=== PATIENT | male | born 1960 | race African-American/Black ===

== ENCOUNTER 2017-01-01 11:58 | Inpatient (IN) | payer OTHER ==
[2017-01-01 14:00] VITALS: BMI 21.2
--- NOTE | 2017-01-01 15:09 | HP ---
COWS - Scale Resting Pulse: 1= [place] 81-100 Sweatin= Chills/Flushing Restless Observation: 3= Extraneous Movement Pupil Size: 0= Normal to Room Light Bone or Joint Aches: 4=Acute Joint/Muscle Pain Runny Nose/ Eye Tearin= Runny Nose/Eyes GI Upset > 30mins: 1= Stomach Cramp Tremor Observation: 2= Slight Tremor Visible Yawning Observation: 1= 1-2x During Session Anxiety or Irritability: 2=Irritable/Anxious Goose Flesh Skin: 0=Smooth Skin COWS Score: 17 CIWA Score - CIWA Score Nausea/Vomitin-No Nausea/No Vomiting Muscle Tremors: 4-Moderate,w/Arms Extend Anxiety: 4-Mod. Anxious/Guarded Agitation: 3 Paroxysmal Sweats: 2 Orientation: 0-Oriented Tacttile Disturbances: 3-Moderate Itch/Numb/Burn Auditory Disturbances: 0-None Visual Disturbances: 0-None Headache: 2-Mild CIWA-Ar Total Score: 18 Admission ROS S - HPI Chief Complaint: DETOX TX FOR HEROIN AND ALCOHOL DEPENDENCE Allergies/Adverse Reactions: Allergies Allergy/AdvReac Type Severity Reaction Status Date / Time Penicillins Allergy Severe Swelling Verified 01/01/17 14:21 shellfish derived Allergy Severe Swelling Verified 01/01/17 14:21 History of Present Illness: 56 Y/O AA/MALE WITH A HX OF ALCOHOL, HEROIN AND COCAINE DEPENDENCE SEEKING DETOX TX. Exam Limitations: No Limitations - Ebola screening Have you traveled outside of the country in the last 21 days: No Have you had contact with anyone from an Ebola affected area: No Have you been sick,other than usual withdrawal symptoms: No Do you have a fever: No - Review of Systems Constitutional: Chills, Loss of Appetite, Night Sweats, Changes in sleep, Unintentional Wgt. Loss EENT: reports: Blurred Vision, Tearing, Nose Congestion, Dental Problems ( MISSING) Respiratory: reports: No Symptoms reported Cardiac: reports: Lightheadedness GI: reports: Constipated, Diarrhea, Nausea, Poor Appetite, Poor Fluid Intake, Vomiting : reports: No Symptoms Reported Musculoskeletal: reports: Back Pain, Joint Pain, Muscle Pain Integumentary: reports: No Symptoms Reported Neuro: reports: Headache, Tremors, Unsteady Gait, Dizziness Endocrine: reports: No Symptoms Reported Hematology: reports: No Symptoms Reported Psychiatric: reports: Orientated x3 Other Systems: Reviewed and Negative Patient History - Patient Medical History Hx Anemia: No Hx Asthma: No Hx Chronic Obstructive Pulmonary Disease (COPD): No Hx Cancer: No Hx Cardiac Disorders: No Hx Congestive Heart Failure: No Hx Hypertension: No Hx Hypercholesterolemia: No Hx Pacemaker: No HX Cerebrovascular Accident: No Hx Seizures: No Hx Dementia: No Hx Diabetes: No Hx Gastrointestinal Disorders: No Hx Liver Disease: Yes Hx Genitourinary Disorders: No Hx Sexually Transmitted Disorders: No Hx Renal Disease (ESRD): No Hx Thyroid Disease: No Hx Human Immunodeficiency Virus (HIV): No (NEGATIVE HX) Hx Hepatitis C: Yes (no treatment) Hx Depression: No Hx Suicide Attempt: No Hx Bipolar Disorder: No Hx Schizophrenia: No - Patient Surgical History Past Surgical History: No Hx Neurologic Surgery: No Hx Cataract Extraction: No Hx Cardiac Surgery: No Hx Lung Surgery: No Hx Breast Surgery: No Hx Breast Biopsy: No Hx Abdominal Surgery: No Hx Appendectomy: No Hx Cholecystectomy: No Hx Genitourinary Surgery: No Hx Orthopedic Surgery: No Anesthesia Reaction: No - PPD History Previous Implant?: Yes Documented Results: Negative w/proof Implanted On Prior R Admission?: Yes Date: 01/05/16 Results: 0 mm PPD to be Administered?: Yes - Reproductive History Patient is a Female of Child Bearing Age (11 -55 yrs old): No (MALE) Patient : (N/A) - Smoking Cessation Smoking history: Never smoked Have you smoked in the past 12 months: No Hx Chewing Tobacco Use: No Initiated information on smoking cessation: No - Substance & Tx. History Hx Alcohol Use: Yes (VODKA/BEER) Hx Substance Use: Yes (HEROIN/COCAINE) Substance Use Type: Alcohol, Cocaine, Heroin Hx Substance Use Treatment: Yes (LAST TX AT [facility] DETOX) - Substances Abused Heroin Route: Inhalation Frequency: Daily Amount used: 3 bags Age of first use: 27 Date of Last Use: 12/31/16 Crack Route: Smoking Frequency: Daily Amount used: $40-50 Age of first use: 27 Date of Last Use: 12/31/16 Alcohol-vodka/beer Route: Oral Frequency: Daily Amount used: 2 pts./2-6 pks. Age of first use: 27 Date of Last Use: 12/31/16 Family Disease History - Family Disease History Family Disease History: Heart Disease: Father ([place],ALCOHOL), Other: Father Admission Physical Exam [facility] - Vital Signs Vital Signs: Vital Signs - 24 hr 01/01/17 13:57 Temperature 96.6 F L Pulse Rate 90 Respiratory 20 Rate Blood Pressure 107/60 - Physical General Appearance: Yes: Moderate Distress, Thin, Irritable, Anxious HEENTM: Yes: EOMI, Normocephalic, FRED, Pharynx Normal Respiratory: Yes: Chest Non-Tender, Lungs Clear, Normal Breath Sounds, No Respiratory Distress Neck: Yes: Within Normal Limits, No masses,lesions,Nodules, Supple Breast: Yes: Breast Exam Deferred Cardiology: Yes: Regular Rhythm, Regular Rate, S1, S2 Abdominal: Yes: Normal Bowel Sounds, Non Tender, Flat, Soft Genitourinary: Yes: Other (N/C) Back: Yes: Within Normal Limits Musculoskeletal: Yes: full range of Motion, Gait Steady Extremities: Yes: Normal Range of Motion, Non-Tender 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: laundry presser II-XII NML intact, Fully Oriented, Alert, Motor Strength 5/5 Integumentary: Yes: Dry, Warm Lymphatic: Yes: Within Normal Limits - Diagnostic (1) Alcohol dependence with uncomplicated withdrawal Current Visit: Yes Status: Acute (2) Opioid dependence with withdrawal Current Visit: Yes Status: Acute (3) Cocaine dependence Current Visit: Yes Status: Acute Qualifiers: Substance use status: uncomplicated Qualified Code(s): F14.20 - Cocaine dependence, uncomplicated; F14.20 - Cocaine dependence, uncomplicated; F14.20 - Cocaine dependence, uncomplicated (4) Hepatitis C Current Visit: Yes Status: Chronic Qualifiers: Viral hepatitis chronicity: unspecified Hepatic coma status: without hepatic coma Qualified Code(s): B19.20 - Unspecified viral hepatitis C without hepatic coma; B19.20 - Unspecified viral hepatitis C without hepatic coma (5) Weight decreased Current Visit: Yes Status: Chronic Cleared for Admission [facility] - Detox or Rehab [facility] Level of Care: Medically Managed Detox Regimen/Protocol: Methadone/Librium [facility] Breath Alcohol Content Breath Alcohol Content: 0 Urine Drug Screen - Results Drug Screen Negative: No Urine Drug Screen Results: VINEET-Cocaine, OPI-Opiates
[2017-01-01] MEDS ORDERED: hydrOXYzine PAMOATE 25 MG CAPSULE (FP) PO PRN (15:14)
[2017-01-01] MEDS ORDERED: MENTHOL/PHENOL 1 EACH UD MM PRN (15:14)
[2017-01-01] MEDS ORDERED: MAGNESIUM HYDROX 2400MG/30ML ORAL SUSPENSION 30 ML CUP PO PRN (15:14)
[2017-01-01] MEDS ORDERED: MAG HYDROX/AL HYDROX/SIMETH 30 ML UNIT-DOSE CUP PO PRN (15:14)
[2017-01-01] MEDS ORDERED: guaiFENesin/D-METHORPHAN HB 10 ML UNIT-DOSE CUPS PO PRN (15:14)
[2017-01-01] MEDS ORDERED: LOPERAMIDE HCL 2 MG CAPSULE PO PRN (15:14)
[2017-01-01] MEDS ORDERED: P-EPHED 60MG/TRIPROLIDI 2.5MG TABLET PO PRN (15:14)
[2017-01-01] MEDS ORDERED: MAGNESIUM CITRATE 300 ML BOTTLE PO PRN (15:14)
[2017-01-01] MEDS ORDERED: chlordiazePOXIDE HCL 25 MG CAPSULE PO PRN (15:14)
[2017-01-01] MEDS ORDERED: IBUPROFEN 400 MG TABLET (FP) PO PRN (15:14)
[2017-01-01] MEDS ORDERED: METHADONE HCL 10 MG TABLET (FOR DETOX USE ONLY) PO ONE ×2 (15:35→23:00)
[2017-01-01] MEDS: chlordiazePOXIDE HCL 25 MG CAPSULE PO SCH ×2 (17:41→22:07)
[2017-01-01 17:56] LABS: URINE APPEARANCE SLCLOUDY; URINE BILIRUBIN NEGATIVE (NEGATIVE); URINE BLOOD NEGATIVE (NEGATIVE); URINE COLOR DKYELLOW; URINE GLUCOSE (UA) NEGATIVE (NEGATIVE); URINE KETONE NEGATIVE (NEGATIVE); URINE NITRITE NEGATIVE (NEGATIVE); URINE PROTEIN NEGATIVE (NEGATIVE); URINE UROBILINOGEN 4.0 E.U/dl mg/dL (0.2-1.0)
[2017-01-01 20:18] LABS: URINE LEUK ESTERASE Negative (NEGATIVE)
[2017-01-01] MEDS: THIAMINE HCL 100 MG TABLET (FP) PO SCH (22:07)
[2017-01-01] MEDS: diphenhydrAMINE HCL 50 MG CAPSULE PO PRN (22:07)
[2017-01-02] MEDS: chlordiazePOXIDE HCL 25 MG CAPSULE PO SCH ×4 (05:12→22:03)
[2017-01-02 09:51] LABS: MCH 29.3 pg (25.7-33.7); MCHC 32.9 g/dl (32.0-35.9); MEAN PLT VOLUME 9.7 fl (7.5-11.1); PLATELET COUNT 150 K/MM3 (134-434); RDW 13.9 % (11.9-15.9); WHITE BLOOD COUNT 5.3 K/mm3 (4.0-10.0)
[2017-01-02] MEDS ORDERED: METHADONE HCL 10 MG TABLET (FOR DETOX USE ONLY) PO SCH (10:00)
[2017-01-02] MEDS: PRENATAL VITAMINS W/ FOLIC ACID TABLET (FP) PO SCH (10:13)
[2017-01-02 10:28] LABS: ALBUMIN 3.8 g/dl (3.4-5.0); ALK PHOS 52 U/L (45-117); ANION GAP 8 (8-16); BILIRUBIN,TOTAL 0.3 mg/dL (0.2-1.0); CALCIUM 8.9 mg/dL (8.5-10.1); CO2 27 mmol/L (21-32); CREATININE 1.3 mg/dL (0.7-1.3); GLUCOSE,RANDOM 99 mg/dL (74-106); SGOT/AST 26 U/L (15-37); SGPT/ALT 38 U/L (12-78); TOT PROT 7.4 g/dl (6.4-8.2)
--- NOTE | 2017-01-02 12:16 | PN ---
[facility] CIWA - CIWA Score Nausea/Vomitin-No Nausea/No Vomiting Muscle Tremors: 4-Moderate,w/Arms Extend Anxiety: 3 Agitation: 3 Paroxysmal Sweats: 3 Orientation: 0-Oriented Tacttile Disturbances: 2-Mild Itch/Numbness/Burn Auditory Disturbances: 0-None Visual Disturbances: 3-Moderate Sensitivity Headache: 0-None Present CIWA-Ar Total Score: 18 S COWS - Scale Resting Pulse: 0= [place] 80 or Below Sweatin= Chills/Flushing Restless Observation: 1= Difficult to Sit Still Pupil Size: 0= Normal to Room Light Bone or Joint Aches: 2= Severe Diffuse Aches Runny Nose/ Eye Tearin= Nasal Congestion GI Upset > 30mins: 0= None Tremor Observation of Outstretched Hands: 2= Slight Tremor Visible Yawning Observation: 1= 1-2x During Session Anxiety or Irritability: 2=Irritable/Anxious Goose Flesh Skin: 3=Piloerection COWS Score: 13 [facility] Progress Note (SOAP) Subjective: Body aches, Tremors, Sweating. Objective: PT. A & O X 3. NO ACUTE DISTRESS. 01/02/17 12:15 Vital Signs Temperature 96.7 F L 01/02/17 06:20 Pulse Rate 61 01/02/17 09:31 Respiratory Rate 16 01/02/17 09:31 Blood Pressure 94/56 01/02/17 09:31 O2 Sat by Pulse Oximetry (%) Laboratory Tests 01/01/17 01/02/17 01/02/17 15:49 05:45 05:45 WBC 5.3 D RBC 4.42 Hgb 13.0 D Hct 39.3 MCV 89.0 MCH 29.3 MCHC 32.9 RDW 13.9 Plt Count 150 MPV 9.7 D Sodium 139 Potassium 3.8 Chloride 104 Carbon Dioxide 27 Anion Gap 8 BUN 18 D Creatinine 1.3 Creat Clearance w eGFR 57.53 Random Glucose 99 Calcium 8.9 Total Bilirubin 0.3 D AST 26 ALT 38 Alkaline Phosphatase 52 D Total Protein 7.4 D Albumin 3.8 D Urine Color Dkyellow Urine Appearance Slcloudy Urine pH 5.0 Ur Specific [place] 1.025 Urine Protein Negative Urine Glucose (UA) Negative Urine Ketones Negative Urine Blood Negative Urine Nitrite Negative Urine Bilirubin Negative Urine Urobilinogen 4.0 e.u/dl Ur Leukocyte Esterase Negative RPR Titer 01/02/17 05:45 WBC RBC Hgb Hct MCV MCH MCHC RDW Plt Count MPV Sodium Potassium Chloride Carbon Dioxide Anion Gap BUN Creatinine Creat Clearance w eGFR Random Glucose Calcium Total Bilirubin AST ALT Alkaline Phosphatase Total Protein Albumin Urine Color Urine Appearance Urine pH Ur Specific [place] Urine Protein Urine Glucose (UA) Urine Ketones Urine Blood Urine Nitrite Urine Bilirubin Urine Urobilinogen Ur Leukocyte Esterase RPR Titer Nonreactive LABS NOTED. Assessment: 01/02/17 12:15 WITHDRAWAL SYMPTOMS. Plan: CONTINUE DETOX. INCREASE DAILY PO FLUID INTAKE.
--- NOTE | 2017-01-02 13:25 | EKG ---
Test Reason : Blood Pressure : / mmHG Vent. Rate : 062 BPM Atrial Rate : 062 BPM P-R Int : 284 ms QRS Dur : 082 ms QT Int : 402 ms P-R-T Axes : 078 070 058 degrees QTc Int : 408 ms SINUS RHYTHM WITH 1ST DEGREE A-V BLOCK POSSIBLE ACUTE PERICARDITIS ABNORMAL ECG NO PREVIOUS ECGS AVAILABLE Confirmed by DAYSI SHARPE MD ([id number]) on 01/02/2017 1:24:49 PM Referred By: Confirmed By:DAYSI SHARPE MD
[2017-01-02] MEDS: ACETAMINOPHEN 325 MG TABLET (FP) PO PRN (21:35)
[2017-01-02] MEDS: THIAMINE HCL 100 MG TABLET (FP) PO SCH (22:02)
[2017-01-03] MEDS: chlordiazePOXIDE HCL 25 MG CAPSULE PO SCH ×2 (05:08→10:07)
[2017-01-03] MEDS: ACETAMINOPHEN 325 MG TABLET (FP) PO PRN ×2 (05:10→16:42)
[2017-01-03] MEDS ORDERED: CYCLOBENZAPRINE HCL 10 MG TABLET (FP) PO PRN (09:43)
[2017-01-03] MEDS: METHADONE HCL 5 MG TABLET (FOR DETOX USE ONLY) PO SCH (10:07)
[2017-01-03] MEDS: PRENATAL VITAMINS W/ FOLIC ACID TABLET (FP) PO SCH (10:07)
--- NOTE | 2017-01-03 12:40 | PN ---
[facility] CIWA - CIWA Score Nausea/Vomitin Muscle Tremors: 3 Anxiety: 3 Agitation: 1-Slight > Activity Paroxysmal Sweats: 3 Orientation: 2-Disoriented Date<2 days Tacttile Disturbances: 2-Mild Itch/Numbness/Burn Auditory Disturbances: 0-None Visual Disturbances: 0-None Headache: 2-Mild CIWA-Ar Total Score: 21 [facility] COWS - Scale Resting Pulse: 0= [place] 80 or Below Sweatin= Chills/Flushing Restless Observation: 1= Difficult to Sit Still Pupil Size: 0= Normal to Room Light Bone or Joint Aches: 2= Severe Diffuse Aches Runny Nose/ Eye Tearin= Nasal Congestion GI Upset > 30mins: 3= Vomiting/Diarrhea Tremor Observation of Outstretched Hands: 2= Slight Tremor Visible Yawning Observation: 1= 1-2x During Session Anxiety or Irritability: 2=Irritable/Anxious Goose Flesh Skin: 3=Piloerection COWS Score: 16 S Progress Note (SOAP) Subjective: Vomiting, Body Aches, Interrupted sleep, Sweating, H/A, Tremors. Objective: PT. A & O X 2 (DISORIENTED ABOUT DAY / DATE). PT. OBSERVED AMBULATING ON UNIT. NO ACUTE DISTRESS. 01/03/17 12:38 Vital Signs Temperature 97.0 F L 01/03/17 09:01 Pulse Rate 76 01/03/17 09:01 Respiratory Rate 18 01/03/17 09:01 Blood Pressure 95/59 01/03/17 09:01 O2 Sat by Pulse Oximetry (%) Laboratory Tests 01/01/17 01/02/17 01/02/17 15:49 05:45 05:45 WBC 5.3 D RBC 4.42 Hgb 13.0 D Hct 39.3 MCV 89.0 MCH 29.3 MCHC 32.9 RDW 13.9 Plt Count 150 MPV 9.7 D Sodium 139 Potassium 3.8 Chloride 104 Carbon Dioxide 27 Anion Gap 8 BUN 18 D Creatinine 1.3 Creat Clearance w eGFR 57.53 Random Glucose 99 Calcium 8.9 Total Bilirubin 0.3 D AST 26 ALT 38 Alkaline Phosphatase 52 D Total Protein 7.4 D Albumin 3.8 D Urine Color Dkyellow Urine Appearance Slcloudy Urine pH 5.0 Ur Specific [place] 1.025 Urine Protein Negative Urine Glucose (UA) Negative Urine Ketones Negative Urine Blood Negative Urine Nitrite Negative Urine Bilirubin Negative Urine Urobilinogen 4.0 e.u/dl Ur Leukocyte Esterase Negative RPR Titer 01/02/17 05:45 WBC RBC Hgb Hct MCV MCH MCHC RDW Plt Count MPV Sodium Potassium Chloride Carbon Dioxide Anion Gap BUN Creatinine Creat Clearance w eGFR Random Glucose Calcium Total Bilirubin AST ALT Alkaline Phosphatase Total Protein Albumin Urine Color Urine Appearance Urine pH Ur Specific [place] Urine Protein Urine Glucose (UA) Urine Ketones Urine Blood Urine Nitrite Urine Bilirubin Urine Urobilinogen Ur Leukocyte Esterase RPR Titer Nonreactive LABS NOTED. Assessment: 01/03/17 12:39 WITHDRAWAL SYMPTOMS. Plan: CONTINUE DETOX. INCREASE DAILY PO FLUID INTAKE. PRN FLEXERIL FOR BODY ACHES / MUSCLE SPASMS.
[2017-01-03] MEDS: chlordiazePOXIDE 5 MG CAPSULE PO SCH ×2 (17:25→22:10)
[2017-01-03] MEDS: THIAMINE HCL 100 MG TABLET (FP) PO SCH (22:10)
[2017-01-04] MEDS: chlordiazePOXIDE 5 MG CAPSULE PO SCH ×2 (06:32→10:34)
[2017-01-04] MEDS: METHADONE HCL 5 MG TABLET (FOR DETOX USE ONLY) PO SCH (10:34)
[2017-01-04] MEDS: PRENATAL VITAMINS W/ FOLIC ACID TABLET (FP) PO SCH (10:35)
--- NOTE | 2017-01-04 12:06 | PN ---
[facility] Progress Note (SOAP) Subjective: Fatigue, H/A, Body Aches. Objective: PT. A & O X 3, OBSERVED AMBULATING ON UNIT. NO ACUTE DISTRESS. PT. DENIES CHEST PAIN. 01/04/17 12:04 Vital Signs Temperature 97.9 F 01/04/17 10:00 Pulse Rate 67 01/04/17 10:00 Respiratory Rate 18 01/04/17 10:00 Blood Pressure 126/64 01/04/17 10:00 O2 Sat by Pulse Oximetry (%) Laboratory Tests 01/01/17 01/02/17 01/02/17 15:49 05:45 05:45 WBC 5.3 D RBC 4.42 Hgb 13.0 D Hct 39.3 MCV 89.0 MCH 29.3 MCHC 32.9 RDW 13.9 Plt Count 150 MPV 9.7 D Sodium 139 Potassium 3.8 Chloride 104 Carbon Dioxide 27 Anion Gap 8 BUN 18 D Creatinine 1.3 Creat Clearance w eGFR 57.53 Random Glucose 99 Calcium 8.9 Total Bilirubin 0.3 D AST 26 ALT 38 Alkaline Phosphatase 52 D Total Protein 7.4 D Albumin 3.8 D Urine Color Dkyellow Urine Appearance Slcloudy Urine pH 5.0 Ur Specific [place] 1.025 Urine Protein Negative Urine Glucose (UA) Negative Urine Ketones Negative Urine Blood Negative Urine Nitrite Negative Urine Bilirubin Negative Urine Urobilinogen 4.0 e.u/dl Ur Leukocyte Esterase Negative RPR Titer 01/02/17 05:45 WBC RBC Hgb Hct MCV MCH MCHC RDW Plt Count MPV Sodium Potassium Chloride Carbon Dioxide Anion Gap BUN Creatinine Creat Clearance w eGFR Random Glucose Calcium Total Bilirubin AST ALT Alkaline Phosphatase Total Protein Albumin Urine Color Urine Appearance Urine pH Ur Specific [place] Urine Protein Urine Glucose (UA) Urine Ketones Urine Blood Urine Nitrite Urine Bilirubin Urine Urobilinogen Ur Leukocyte Esterase RPR Titer Nonreactive LABS NOTED. Assessment: 01/04/17 12:05 WITHDRAWAL SYMPTOMS. Plan: CONTINUE DETOX.
[2017-01-04] MEDS: chlordiazePOXIDE HCL 10 MG CAPSULE PO SCH ×2 (17:31→22:03)
[2017-01-04] MEDS: THIAMINE HCL 100 MG TABLET (FP) PO SCH (22:03)
[2017-01-04] MEDS: TOLNAFTATE 1% CREAM 15 GM TUBE TP SCH (22:03)
[2017-01-04] MEDS: IBUPROFEN 600 MG TABLET (FP) PO PRN (22:04)
[2017-01-04] MEDS: diphenhydrAMINE HCL 50 MG CAPSULE PO PRN (22:05)
[2017-01-05] MEDS: chlordiazePOXIDE HCL 10 MG CAPSULE PO SCH ×2 (05:01→10:04)
[2017-01-05 09:33] VITALS: BP 101/73; PULSE 59; TEMP 96.4
[2017-01-05] MEDS ORDERED: METHADONE HCL 10 MG TABLET (FOR DETOX USE ONLY) PO SCH (10:00)
[2017-01-05] MEDS: TOLNAFTATE 1% CREAM 15 GM TUBE TP SCH (10:04)
[2017-01-05] MEDS: PRENATAL VITAMINS W/ FOLIC ACID TABLET (FP) PO SCH (10:04)
[2017-01-05] MEDS: IBUPROFEN 600 MG TABLET (FP) PO PRN (12:04)
--- NOTE | 2017-01-05 17:03 | DS ---
[facility] Detox Discharge Summary Admission Date: 01/01/17 Discharge Date: 01/05/17 - History Present History: Alcohol Dependence, Cocaine Dependence, Opioid Dependence Additional Comments: PATIENT GOING [facility] [place]. PATIENT WAS DISCHARGED FROM DETOX UNIT IN STABLE MEDICAL CONDITION. Pertinent Past History: Hep C. - Physical Exam Results Vital Signs: Vital Signs Temperature 96.4 F L 01/05/17 09:33 Pulse Rate 59 L 01/05/17 09:33 Respiratory Rate 18 01/05/17 09:33 Blood Pressure 101/73 01/05/17 09:33 O2 Sat by Pulse Oximetry (%) Pertinent Admission Physical Exam Findings: WITHDRAWAL SYMPTOMS. Laboratory Tests 01/01/17 01/02/17 01/02/17 15:49 05:45 05:45 WBC 5.3 D RBC 4.42 Hgb 13.0 D Hct 39.3 MCV 89.0 MCH 29.3 MCHC 32.9 RDW 13.9 Plt Count 150 MPV 9.7 D Sodium 139 Potassium 3.8 Chloride 104 Carbon Dioxide 27 Anion Gap 8 BUN 18 D Creatinine 1.3 Creat Clearance w eGFR 57.53 Random Glucose 99 Calcium 8.9 Total Bilirubin 0.3 D AST 26 ALT 38 Alkaline Phosphatase 52 D Total Protein 7.4 D Albumin 3.8 D Urine Color Dkyellow Urine Appearance Slcloudy Urine pH 5.0 Ur Specific [place] 1.025 Urine Protein Negative Urine Glucose (UA) Negative Urine Ketones Negative Urine Blood Negative Urine Nitrite Negative Urine Bilirubin Negative Urine Urobilinogen 4.0 e.u/dl Ur Leukocyte Esterase Negative RPR Titer 01/02/17 05:45 WBC RBC Hgb Hct MCV MCH MCHC RDW Plt Count MPV Sodium Potassium Chloride Carbon Dioxide Anion Gap BUN Creatinine Creat Clearance w eGFR Random Glucose Calcium Total Bilirubin AST ALT Alkaline Phosphatase Total Protein Albumin Urine Color Urine Appearance Urine pH Ur Specific [place] Urine Protein Urine Glucose (UA) Urine Ketones Urine Blood Urine Nitrite Urine Bilirubin Urine Urobilinogen Ur Leukocyte Esterase RPR Titer Nonreactive LABS NOTED. - Treatment Hospital Course: Detox Protocol Followed, Detoxed Safely, Responded well, Discharged Condition Good Patient has Accepted a Rehab Referral to: NO. PT GOING TO [facility] ([place] FOR [place]CARE. - Medication Discharge Medications: Ambulatory Orders NK [No Known Home Medication] 01/03/16 - Diagnosis (1) Alcohol dependence with uncomplicated withdrawal Status: Acute (2) Cocaine dependence Status: Acute Qualifiers: Substance use status: uncomplicated Qualified Code(s): F14.20 - Cocaine dependence, uncomplicated; F14.20 - Cocaine dependence, uncomplicated; F14.20 - Cocaine dependence, uncomplicated (3) Opioid dependence with withdrawal Status: Acute (4) Hepatitis C Status: Chronic Qualifiers: Viral hepatitis chronicity: unspecified Hepatic coma status: without hepatic coma Qualified Code(s): B19.20 - Unspecified viral hepatitis C without hepatic coma; B19.20 - Unspecified viral hepatitis C without hepatic coma (5) Weight decreased Status: Chronic - AMA Did Patient Leave Against Medical Advice: No
[2017-01-06] MEDS ORDERED: METHADONE HCL 5 MG TABLET (FOR DETOX USE ONLY) PO SCH (06:00)
== END 2017-01-05 13:38 | disposition home or self-care (01) | DRG 773 ==
LOC: YASAS 11:58 → Y3N 15:29
PROVIDERS: ADMIT Internal Medicine; ATTEND Internal Medicine
PROC: HZ2ZZZZ Detoxification Services for Substance Abuse Treatment (ICD-10-PCS; principal; 2017-01-01)
DX: F11.23 Opioid dependence with withdrawal (principal); F10.230 Alcohol dependence with withdrawal, uncomplicated; F14.20 Cocaine dependence, uncomplicated; B18.2 Chronic viral hepatitis C; R63.4 Abnormal weight loss; Z68.21 Body mass index [BMI] 21.0-21.9, adult
CPT/HCPCS: 36415; 80053; 81003; 85027; 86593; 93005; 93010

== ENCOUNTER 2017-02-12 15:42 | Inpatient (IN) | payer OTHER ==
[2017-02-12 18:05] VITALS: BMI 20.6
--- NOTE | 2017-02-12 18:24 | HP ---
COWS - Scale Resting Pulse: 1= [place] 81-100 Sweatin= Chills/Flushing Restless Observation: 1= Difficult to Sit Still Pupil Size: 0= Normal to Room Light Bone or Joint Aches: 2= Severe Diffuse Aches Runny Nose/ Eye Tearin= Runny Nose/Eyes GI Upset > 30mins: 3= Vomiting/Diarrhea Tremor Observation: 2= Slight Tremor Visible Yawning Observation: 0= None Anxiety or Irritability: 2=Irritable/Anxious Goose Flesh Skin: 0=Smooth Skin COWS Score: 14 CIWA Score - CIWA Score Nausea/Vomitin Muscle Tremors: 4-Moderate,w/Arms Extend Anxiety: 3 Agitation: 3 Paroxysmal Sweats: 1-Minimal Palms Moist Orientation: 0-Oriented Tacttile Disturbances: 0-None Auditory Disturbances: 0-None Visual Disturbances: 0-None Headache: 1-Very Mild CIWA-Ar Total Score: 14 Admission ROS [facility] - HPI Chief Complaint: withdrawal sx Allergies/Adverse Reactions: Allergies Allergy/AdvReac Type Severity Reaction Status Date / Time Penicillins Allergy Severe Swelling Verified 02/12/17 17:56 shellfish derived Allergy Severe Swelling Verified 02/12/17 17:56 History of Present Illness: 56 years old male with long history of alcohol heroin cocaine marijuana dependence has depression is admitted to detox Exam Limitations: No Limitations - Ebola screening Have you traveled outside of the country in the last 21 days: No Have you had contact with anyone from an Ebola affected area: No Have you been sick,other than usual withdrawal symptoms: No Do you have a fever: No - Review of Systems Constitutional: Loss of Appetite, Changes in sleep, Unintentional Wgt. Loss EENT: reports: No Symptoms Reported Respiratory: reports: No Symptoms reported Cardiac: reports: No Symptoms Reported GI: reports: Diarrhea, Nausea, Poor Appetite, Poor Fluid Intake, Vomiting, Indigestion, Abdominal cramping : reports: No Symptoms Reported Musculoskeletal: reports: Back Pain, Joint Pain, Muscle Pain, Neck Pain Integumentary: reports: No Symptoms Reported Neuro: reports: Tremors Endocrine: reports: No Symptoms Reported Hematology: reports: No Symptoms Reported Psychiatric: reports: Judgement Intact, Orientated x3, Depressed Other Systems: Reviewed and Negative Patient History - Patient Medical History Hx Anemia: No Hx Asthma: No Hx Chronic Obstructive Pulmonary Disease (COPD): No Hx Cancer: No Hx Cardiac Disorders: No Hx Congestive Heart Failure: No Hx Hypertension: No Hx Hypercholesterolemia: No Hx Pacemaker: No HX Cerebrovascular Accident: No Hx Seizures: No Hx Dementia: No Hx Diabetes: No Hx Gastrointestinal Disorders: No Hx Liver Disease: Yes Hx Genitourinary Disorders: No Hx Sexually Transmitted Disorders: No Hx Renal Disease (ESRD): No Hx Thyroid Disease: No Hx Human Immunodeficiency Virus (HIV): No (NEGATIVE HX) Hx Hepatitis C: Yes (no treatment) Hx Depression: Yes Hx Suicide Attempt: No Hx Bipolar Disorder: No Hx Schizophrenia: No - Patient Surgical History Past Surgical History: No Hx Neurologic Surgery: No Hx Cataract Extraction: No Hx Cardiac Surgery: No Hx Lung Surgery: No Hx Breast Surgery: No Hx Breast Biopsy: No Hx Abdominal Surgery: No Hx Appendectomy: No Hx Cholecystectomy: No Hx Genitourinary Surgery: No Hx Orthopedic Surgery: No - PPD History Previous Implant?: Yes Documented Results: Negative w/proof Implanted On Prior R Admission?: Yes Date: 01/03/17 Results: 0 mm PPD to be Administered?: No - Smoking Cessation Smoking history: Never smoked Have you smoked in the past 12 months: No Hx Chewing Tobacco Use: No Initiated information on smoking cessation: No - Substance & Tx. History Hx Alcohol Use: Yes Hx Substance Use: Yes Substance Use Type: Alcohol, Cocaine, Marijuana, Opiates Hx Substance Use Treatment: Yes (12/2016) - Substances Abused Alcohol Route: Oral Frequency: Daily Amount used: liquor- 1 pint, beer- 1 six pack Age of first use: 29 Date of Last Use: 02/11/17 Heroin Route: Inhalation Frequency: Daily Amount used: 4 bags Age of first use: 29 Date of Last Use: 02/11/17 Family Disease History - Family Disease History Family Disease History: Heart Disease: Father ([place],ALCOHOL), Other: Father Admission Physical Exam [facility] - Vital Signs Vital Signs: Vital Signs - 24 hr 02/12/17 17:42 Temperature 96.9 F L Pulse Rate 85 Respiratory 18 Rate Blood Pressure 119/76 - Physical General Appearance: Yes: Appropriately Dressed, Mild Distress, Thin, Tremorous, Irritable, Sweating, Anxious HEENTM: Yes: Hearing grossly Normal, Normal ENT Inspection, Normocephalic, Normal Voice Respiratory: Yes: Chest Non-Tender, Lungs Clear, Normal Breath Sounds, No Respiratory Distress, No Accessory Muscle Use Neck: Yes: Supple, Trachea in good position Breast: Yes: Breasts Symetrical Cardiology: Yes: Regular Rhythm, Regular Rate, S1, S2 Abdominal: Yes: Non Tender, Soft, Increased Bowel Sounds Genitourinary: Yes: Within Normal Limits Back: Yes: Normal Inspection Musculoskeletal: Yes: full range of Motion, Gait Steady, Back pain, Muscle Pain Extremities: Yes: Normal Inspection, Normal Range of Motion, Non-Tender, Tremors 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: Fully Oriented, Alert, Motor Strength 5/5, Normal Response, Depressed Affect Integumentary: Yes: Warm Lymphatic: Yes: Within Normal Limits - Diagnostic (1) GERD (gastroesophageal reflux disease) Current Visit: Yes Status: Chronic Qualifiers: Esophagitis presence: without esophagitis Qualified Code(s): K21.9 - Gastro -esophageal reflux disease without esophagitis (2) Alcohol dependence with uncomplicated withdrawal Current Visit: Yes Status: Acute (3) Opioid dependence with withdrawal Current Visit: Yes Status: Acute (4) Hepatitis C Current Visit: Yes Status: Chronic Qualifiers: Viral hepatitis chronicity: chronic Hepatic coma status: without hepatic coma Qualified Code(s): B18.2 - Chronic viral hepatitis C (5) Weight decreased Current Visit: Yes Status: Acute Cleared for Admission [facility] - Detox or Rehab [facility] Level of Care: Medically Managed Detox Regimen/Protocol: Methadone/Librium S Breath Alcohol Content Breath Alcohol Content: 0 Urine Drug Screen - Results Drug Screen Negative: No Urine Drug Screen Results: THC-Marijuana, VINEET-Cocaine, OPI-Opiates, MTD- Methadone
[2017-02-12] MEDS ORDERED: LOPERAMIDE HCL 2 MG CAPSULE PO PRN (18:25)
[2017-02-12] MEDS ORDERED: MENTHOL/PHENOL 1 EACH UD MM PRN (18:25)
[2017-02-12] MEDS ORDERED: chlordiazePOXIDE HCL 25 MG CAPSULE PO PRN (18:25)
[2017-02-12] MEDS ORDERED: MAGNESIUM HYDROX 2400MG/30ML ORAL SUSPENSION 30 ML CUP PO PRN (18:25)
[2017-02-12] MEDS ORDERED: MAGNESIUM CITRATE 300 ML BOTTLE PO PRN (18:25)
[2017-02-12] MEDS ORDERED: P-EPHED 60MG/TRIPROLIDI 2.5MG TABLET PO PRN (18:25)
[2017-02-12] MEDS ORDERED: MAG HYDROX/AL HYDROX/SIMETH 30 ML UNIT-DOSE CUP PO PRN (18:25)
[2017-02-12] MEDS ORDERED: guaiFENesin/D-METHORPHAN HB 10 ML UNIT-DOSE CUPS PO PRN (18:25)
[2017-02-12] MEDS ORDERED: METHADONE HCL 10 MG TABLET (FOR DETOX USE ONLY) PO ONE ×2 (19:00→23:00)
[2017-02-12] MEDS: THIAMINE HCL 100 MG TABLET (FP) PO SCH (22:20)
[2017-02-12] MEDS: chlordiazePOXIDE HCL 25 MG CAPSULE PO SCH (22:20)
[2017-02-13] MEDS: chlordiazePOXIDE HCL 25 MG CAPSULE PO SCH ×4 (05:26→22:27)
[2017-02-13] MEDS ORDERED: METHADONE HCL 10 MG TABLET (FOR DETOX USE ONLY) PO SCH (10:00)
[2017-02-13] MEDS: PRENATAL VITAMINS W/ FOLIC ACID TABLET (FP) PO SCH (10:16)
--- NOTE | 2017-02-13 10:23 | EKG ---
Test Reason : Blood Pressure : / mmHG Vent. Rate : 069 BPM Atrial Rate : 069 BPM P-R Int : 000 ms QRS Dur : 082 ms QT Int : 384 ms P-R-T Axes : 081 072 062 degrees QTc Int : 411 ms SINUS RHYTHM WITH 1ST DEGREE A-V BLOCK EARLY REPOLARIZATION OTHERWISE NORMAL ECG WHEN COMPARED WITH ECG OF 01-JAN-2017 17:50, NO SIGNIFICANT CHANGE WAS FOUND Confirmed by ANNEMARIE MARIA, DAYSI ([id number]) on 02/13/2017 10:23:45 AM Referred By: Lucas Delcid Confirmed By:DAYSI SHARPE MD
[2017-02-13 11:04] LABS: MCH 28.9 pg (25.7-33.7); MCHC 31.7 g/dl (32.0-35.9); MEAN CELL VOLUME 91.3 fl (80-96); PLATELET COUNT 151 K/MM3 (134-434); RDW 14.2 % (11.9-15.9); WHITE BLOOD COUNT 3.7 K/mm3 (4.0-10.0)
--- NOTE | 2017-02-13 11:14 | CONSULT ---
[facility] Psychiatric Consult - Data Date of interview: 02/13/17 Admission source: [facility] Identifying data: Readmission to [facility] for this 56 y/o AA male seeking detox treatment on for alcohol,heroin,cocaine and cannabis dependence.Patient is single without children,domiciled,unemployed and supported on Public Assistance. Substance Abuse History: Discussed in this session.Confirmed by patient.Details in current [facility] report : Smoking history: Never smoked. Have you smoked in the past 12 months: No. Hx Chewing Tobacco Use: No. Initiated information on smoking cessation: No. - Substance & Tx. History. Hx Alcohol Use: Yes. Hx Substance Use: Yes. Substance Use Type: Alcohol, Cocaine, Marijuana, Opiates. Hx Substance Use Treatment: Yes (12/2016). - Substances Abused. Alcohol. Route: Oral. Frequency: Daily. Amount used: liquor- 1 pint, beer- 1 six pack. Age of first use: 29. Date of Last Use: 02/11/17. Heroin. Route: Inhalation. Frequency: Daily. Amount used: 4 bags. Age of first use: 29. Date of Last Use: 02/11/17 Medical History: Hepatitis C. Psychiatric History: Patient denies. Physical/Sexual Abuse/Trauma History: Patient denies. Additional Comment: Urine Drug Screen Results: THC-Marijuana, VINEET-Cocaine, OPI- Opiates, MTD-Methadone.Noted. Mental Status Exam - Mental Status Exam Alert and Oriented to: Time, Place, Person Cognitive Function: Good Patient Appearance: Well Groomed Mood: Hopeful, Euthymic Affect: Appropriate, Normal Range Patient Behavior: Fatigued, Appropriate, Cooperative Speech Pattern: Clear Voice Loudness: Normal Thought Process: Intact, Goal Oriented Thought Disorder: Not Present Hallucinations: Denies Suicidal Ideation: Denies Homicidal Ideation: Denies Insight/Judgement: Poor Sleep: Poorly, Difficulty falling asleep Appetite: Good Muscle strength/Tone: Normal Gait/Station: Normal Psychiatric Findings - Problem List ([place] 1, 2,3) (1) Alcohol dependence with uncomplicated withdrawal Current Visit: Yes Status: Acute (2) Opioid dependence with withdrawal Current Visit: Yes Status: Acute (3) Cocaine dependence Current Visit: Yes Status: Acute Qualifiers: Substance use status: uncomplicated Qualified Code(s): F14.20 - Cocaine dependence, uncomplicated (4) Marihuana dependence Current Visit: Yes Status: Acute (5) Insomnia Current Visit: Yes Status: Acute - Initial Treatment Plan Initial Treatment Plan: Psychoeducation.Detoxification.Sleep hygiene.Ambien 10 mg po hs prn.Patient is made aware of risk of parasomnias.Mr Adams is in agreement with this careplan.Observation.
[2017-02-13 11:21] LABS: ALBUMIN 3.3 g/dl (3.4-5.0); ALK PHOS 70 U/L (45-117); ANION GAP 7 (8-16); BILIRUBIN,TOTAL 0.5 mg/dL (0.2-1.0); CALCIUM 8.4 mg/dL (8.5-10.1); CO2 30 mmol/L (21-32); CREATININE 1.1 mg/dL (0.7-1.3); GLUCOSE,RANDOM 111 mg/dL (74-106); SGOT/AST 18 U/L (15-37); SGPT/ALT 27 U/L (12-78); TOT PROT 6.5 g/dl (6.4-8.2)
--- NOTE | 2017-02-13 13:56 | PN ---
[facility] CIWA - CIWA Score Nausea/Vomitin-No Nausea/No Vomiting Muscle Tremors: 4-Moderate,w/Arms Extend Anxiety: 3 Agitation: 2 Paroxysmal Sweats: 3 Orientation: 0-Oriented Tacttile Disturbances: 0-None Auditory Disturbances: 1-Very Mild Visual Disturbances: 3-Moderate Sensitivity Headache: 0-None Present CIWA-Ar Total Score: 16 S COWS - Scale Resting Pulse: 1= [place] 81-100 Sweatin= Chills/Flushing Restless Observation: 1= Difficult to Sit Still Pupil Size: 0= Normal to Room Light Bone or Joint Aches: 2= Severe Diffuse Aches Runny Nose/ Eye Tearin= None GI Upset > 30mins: 0= None Tremor Observation of Outstretched Hands: 2= Slight Tremor Visible Yawning Observation: 1= 1-2x During Session Anxiety or Irritability: 2=Irritable/Anxious Goose Flesh Skin: 3=Piloerection COWS Score: 13 S Progress Note (SOAP) Subjective: Tremors, Sweating, Interrupted Sleep, Body Aches. Objective: PT. A & O X 3, OBSERVED AMBULATING ON UNIT. NO ACUTE DISTRESS. 02/13/17 13:55 Vital Signs Temperature 97.5 F L 02/13/17 13:21 Pulse Rate 85 02/13/17 13:21 Respiratory Rate 18 02/13/17 13:21 Blood Pressure 106/69 02/13/17 13:21 O2 Sat by Pulse Oximetry (%) Laboratory Tests 02/13/17 02/13/17 07:00 07:00 WBC 3.7 L D RBC 4.09 Hgb 11.8 Hct 37.3 MCV 91.3 MCH 28.9 MCHC 31.7 L RDW 14.2 Plt Count 151 MPV 9.0 Sodium 139 Potassium 4.0 Chloride 102 Carbon Dioxide 30 Anion Gap 7 L BUN 13 D Creatinine 1.1 Creat Clearance w eGFR > 60 Random Glucose 111 H Calcium 8.4 L Total Bilirubin 0.5 D AST 18 D ALT 27 D Alkaline Phosphatase 70 D Total Protein 6.5 Albumin 3.3 L LABS NOTED. RPR, UA RESULTS PENDING. 02/13/17 13:56 Assessment: 02/13/17 13:55 WITHDRAWAL SYMPTOMS. Plan: CONTINUE DETOX. INCREASE DAILY PO FLUID INTAKE.
[2017-02-13] MEDS ORDERED: ZOLPIDEM TARTRATE 10 MG TABLET (PARK CARE ONLY) PO PRN (22:00)
[2017-02-13] MEDS: THIAMINE HCL 100 MG TABLET (FP) PO SCH (22:26)
[2017-02-13 23:30] LABS: URINE APPEARANCE SLCLOUDY; URINE BILIRUBIN NEGATIVE (NEGATIVE); URINE BLOOD NEGATIVE (NEGATIVE); URINE COLOR DKYELLOW; URINE GLUCOSE (UA) NEGATIVE (NEGATIVE); URINE KETONE NEGATIVE (NEGATIVE); URINE LEUK ESTERASE NEGATIVE (NEGATIVE); URINE NITRITE NEGATIVE (NEGATIVE); URINE PROTEIN NEGATIVE (NEGATIVE); URINE UROBILINOGEN 4.0 E.U/dl mg/dL (0.2-1.0)
[2017-02-14] MEDS: chlordiazePOXIDE HCL 25 MG CAPSULE PO SCH ×3 (05:46→17:11)
[2017-02-14] MEDS: METHADONE HCL 5 MG TABLET (FOR DETOX USE ONLY) PO SCH (10:10)
[2017-02-14] MEDS: PRENATAL VITAMINS W/ FOLIC ACID TABLET (FP) PO SCH (10:10)
[2017-02-14] MEDS: TOLNAFTATE 1% CREAM 15 GM TUBE TP SCH ×2 (12:29→22:28)
[2017-02-14 13:14] LABS: URINE LEUK ESTERASE Negative (NEGATIVE)
[2017-02-14] MEDS: ACETAMINOPHEN 325 MG TABLET (FP) PO PRN (15:03)
--- NOTE | 2017-02-14 15:50 | PN ---
S CIWA - CIWA Score Nausea/Vomitin Muscle Tremors: 4-Moderate,w/Arms Extend Anxiety: 3 Agitation: 0-Normal Activity Paroxysmal Sweats: 3 Orientation: 0-Oriented Tacttile Disturbances: 1-Very Mild Itch/Numbness Auditory Disturbances: 0-None Visual Disturbances: 2-Mild Sensitivity Headache: 0-None Present CIWA-Ar Total Score: 16 BHS COWS - Scale Resting Pulse: 1= [place] 81-100 Sweatin= Chills/Flushing Restless Observation: 1= Difficult to Sit Still Pupil Size: 0= Normal to Room Light Bone or Joint Aches: 2= Severe Diffuse Aches Runny Nose/ Eye Tearin= Nasal Congestion GI Upset > 30mins: 2= Nausea/Diarrhea Tremor Observation of Outstretched Hands: 2= Slight Tremor Visible Yawning Observation: 2= >3x During Session Anxiety or Irritability: 2=Irritable/Anxious Goose Flesh Skin: 0=Smooth Skin COWS Score: 14 S Progress Note (SOAP) Subjective: Nausea, Anxious, Fatigue, Stomach Cramping, Body Aches, Tremors. Objective: PT. A & O X 3, OBSERVED AMBULATING ON UNIT. NO ACUTE DISTRESS. 02/14/17 15:50 Vital Signs Temperature 97.7 F 02/14/17 13:14 Pulse Rate 68 02/14/17 13:14 Respiratory Rate 16 02/14/17 13:14 Blood Pressure 95/64 02/14/17 13:14 O2 Sat by Pulse Oximetry (%) Laboratory Tests 02/13/17 02/13/17 02/13/17 07:00 07:00 07:00 WBC 3.7 L D RBC 4.09 Hgb 11.8 Hct 37.3 MCV 91.3 MCH 28.9 MCHC 31.7 L RDW 14.2 Plt Count 151 MPV 9.0 Sodium 139 Potassium 4.0 Chloride 102 Carbon Dioxide 30 Anion Gap 7 L BUN 13 D Creatinine 1.1 Creat Clearance w eGFR > 60 Random Glucose 111 H Calcium 8.4 L Total Bilirubin 0.5 D AST 18 D ALT 27 D Alkaline Phosphatase 70 D Total Protein 6.5 Albumin 3.3 L Urine Color Urine Appearance Urine pH Ur Specific [place] Urine Protein Urine Glucose (UA) Urine Ketones Urine Blood Urine Nitrite Urine Bilirubin Urine Urobilinogen Ur Leukocyte Esterase RPR Titer Nonreactive 12/06/17 21:45 WBC RBC Hgb Hct MCV MCH MCHC RDW Plt Count MPV Sodium Potassium Chloride Carbon Dioxide Anion Gap BUN Creatinine Creat Clearance w eGFR Random Glucose Calcium Total Bilirubin AST ALT Alkaline Phosphatase Total Protein Albumin Urine Color Dkyellow Urine Appearance Slcloudy Urine pH 5.0 Ur Specific [place] 1.023 Urine Protein Negative Urine Glucose (UA) Negative Urine Ketones Negative Urine Blood Negative Urine Nitrite Negative Urine Bilirubin Negative Urine Urobilinogen 4.0 e.u/dl Ur Leukocyte Esterase Negative RPR Titer LABS NOTED. Assessment: 02/14/17 15:51 WITHDRAWAL SYMPTOMS. Plan: CONTINUE DETOX. INCREASE DAILY PO FLUID INTAKE.
[2017-02-14] MEDS: THIAMINE HCL 100 MG TABLET (FP) PO SCH (22:25)
[2017-02-14] MEDS: chlordiazePOXIDE 5 MG CAPSULE PO SCH (22:25)
[2017-02-15] MEDS: ACETAMINOPHEN 325 MG TABLET (FP) PO PRN ×3 (00:25→09:02)
[2017-02-15] MEDS: chlordiazePOXIDE 5 MG CAPSULE PO SCH ×2 (05:02→10:04)
[2017-02-15] MEDS ORDERED: IBUPROFEN 400 MG TABLET (FP) PO PRN (09:56)
[2017-02-15] MEDS ORDERED: LIDOCAINE VISCOUS 2% ORAL/TOP 20 ML UNIT-DOSE CUP MM PRN (09:57)
[2017-02-15] MEDS: METHADONE HCL 5 MG TABLET (FOR DETOX USE ONLY) PO SCH (10:03)
[2017-02-15] MEDS: PRENATAL VITAMINS W/ FOLIC ACID TABLET (FP) PO SCH (10:03)
[2017-02-15] MEDS: TOLNAFTATE 1% CREAM 15 GM TUBE TP SCH (10:04)
[2017-02-15 13:29] VITALS: BP 104/66; PULSE 74; TEMP 98.5
--- NOTE | 2017-02-15 17:38 | DS ---
[facility] Detox Discharge Summary Admission Date: 02/12/17 Discharge Date: 02/15/17 - History Present History: Alcohol Dependence, Cannabis Dependence, Cocaine Dependence, Opioid Dependence Additional Comments: PATIENT GOING HOME TO RETURN TO WORK. PATIENT ADVISED TO CONSIDER LOCAL 12-STEP / NA / AA OUTPATIENT SUPPORT GROUPS FOR AFTERCARE. Pertinent Past History: Hep C, Insomnia, Depression, Weight Decreased. - Physical Exam Results Vital Signs: Vital Signs Temperature 98.5 F 02/15/17 13:28 Pulse Rate 74 02/15/17 13:28 Respiratory Rate 16 02/15/17 13:28 Blood Pressure 104/66 02/15/17 13:28 O2 Sat by Pulse Oximetry (%) Pertinent Admission Physical Exam Findings: WITHDRAWAL SYMPTOMS. Laboratory Tests 02/13/17 02/13/17 02/13/17 07:00 07:00 07:00 WBC 3.7 L D RBC 4.09 Hgb 11.8 Hct 37.3 MCV 91.3 MCH 28.9 MCHC 31.7 L RDW 14.2 Plt Count 151 MPV 9.0 Sodium 139 Potassium 4.0 Chloride 102 Carbon Dioxide 30 Anion Gap 7 L BUN 13 D Creatinine 1.1 Creat Clearance w eGFR > 60 Random Glucose 111 H Calcium 8.4 L Total Bilirubin 0.5 D AST 18 D ALT 27 D Alkaline Phosphatase 70 D Total Protein 6.5 Albumin 3.3 L Urine Color Urine Appearance Urine pH Ur Specific [place] Urine Protein Urine Glucose (UA) Urine Ketones Urine Blood Urine Nitrite Urine Bilirubin Urine Urobilinogen Ur Leukocyte Esterase RPR Titer Nonreactive 02/13/17 21:45 WBC RBC Hgb Hct MCV MCH MCHC RDW Plt Count MPV Sodium Potassium Chloride Carbon Dioxide Anion Gap BUN Creatinine Creat Clearance w eGFR Random Glucose Calcium Total Bilirubin AST ALT Alkaline Phosphatase Total Protein Albumin Urine Color Dkyellow Urine Appearance Slcloudy Urine pH 5.0 Ur Specific [place] 1.023 Urine Protein Negative Urine Glucose (UA) Negative Urine Ketones Negative Urine Blood Negative Urine Nitrite Negative Urine Bilirubin Negative Urine Urobilinogen 4.0 e.u/dl Ur Leukocyte Esterase Negative RPR Titer LABS NOTED. - Treatment Hospital Course: Detox Protocol Followed, Detoxed Safely, Responded well, Discharged Condition Good Patient has Accepted a Rehab Referral to: PT GOING HOME, ADVISED TO CONSIDER LOCAL 12-STEP/NA/AA SUPPORT GROUPS. - Medication Discharge Medications: Ambulatory Orders NK [No Known Home Medication] 01/03/16 - Diagnosis (1) Alcohol dependence with uncomplicated withdrawal Status: Acute (2) Opioid dependence with withdrawal Status: Acute (3) Cocaine dependence Status: Acute Qualifiers: Substance use status: uncomplicated Qualified Code(s): F14.20 - Cocaine dependence, uncomplicated (4) Insomnia Status: Acute Qualifiers: Insomnia type: unspecified Qualified Code(s): G47.00 - Insomnia, unspecified (5) Marihuana dependence Status: Acute (6) Weight decreased Status: Acute (7) Hepatitis C Status: Chronic Qualifiers: Viral hepatitis chronicity: chronic Hepatic coma status: without hepatic coma Qualified Code(s): B18.2 - Chronic viral hepatitis C - AMA Did Patient Leave Against Medical Advice: No
[2017-02-15] MEDS ORDERED: chlordiazePOXIDE HCL 10 MG CAPSULE PO SCH (23:00)
[2017-02-16] MEDS ORDERED: METHADONE HCL 10 MG TABLET (FOR DETOX USE ONLY) PO SCH (10:00)
[2017-02-17] MEDS ORDERED: METHADONE HCL 5 MG TABLET (FOR DETOX USE ONLY) PO SCH (06:00)
== END 2017-02-15 14:50 | disposition home or self-care (01) | DRG 773 ==
LOC: YASAS 15:42 → Y3N 18:47
PROVIDERS: ADMIT Internal Medicine; ATTEND Internal Medicine
PROC: HZ2ZZZZ Detoxification Services for Substance Abuse Treatment (ICD-10-PCS; principal; 2017-02-12)
DX: F11.23 Opioid dependence with withdrawal (principal); F10.230 Alcohol dependence with withdrawal, uncomplicated; F14.20 Cocaine dependence, uncomplicated; F32.9 Major depressive disorder, single episode, unspecified; G47.00 Insomnia, unspecified; B18.2 Chronic viral hepatitis C; K21.9 Gastro-esophageal reflux disease without esophagitis; R63.4 Abnormal weight loss; Z68.20 Body mass index [BMI] 20.0-20.9, adult
CPT/HCPCS: 36415; 80053; 81003; 85027; 86593; 93005; 93010

== ENCOUNTER 2017-05-01 12:43 | Inpatient (IN) | payer OTHER ==
[2017-05-01 15:53] VITALS: BMI 20.6
--- NOTE | 2017-05-01 17:19 | HP ---
CIWA Score - CIWA Score Nausea/Vomitin Muscle Tremors: 3 Anxiety: 3 Agitation: 3 Paroxysmal Sweats: 3 Orientation: 0-Oriented Tacttile Disturbances: 1-Very Mild Itch/Numbness Auditory Disturbances: 0-None Visual Disturbances: 0-None Headache: 2-Mild CIWA-Ar Total Score: 18 Admission ROS S - [facility] Chief Complaint: alcohol and benzodiazepine withdrawal sx Allergies/Adverse Reactions: Allergies Allergy/AdvReac Type Severity Reaction Status Date / Time Penicillins Allergy Severe Swelling Verified 05/01/17 16:52 shellfish derived Allergy Severe Swelling Verified 05/01/17 16:52 History of Present Illness: 56 yo m with h/o chorinc alcoholism and polysubstnqace use requesting inpatient detoxification from aclhol and benZodiazepines becasue of withdrawwl sx. no si at thsi time, no h/o seizures, no DTS. PMHX anxiety, depression and insmonia, hep c+ Exam Limitations: No Limitations - Ebola screening Have you traveled outside of the country in the last 21 days: No Have you had contact with anyone from an Ebola affected area: No Have you been sick,other than usual withdrawal symptoms: No Do you have a fever: No - Review of Systems Constitutional: Chills, Diaphoresis, Night Sweats, Unintentional Wgt. Loss EENT: reports: No Symptoms Reported Respiratory: reports: No Symptoms reported Cardiac: reports: No Symptoms Reported GI: reports: Diarrhea, Nausea, Poor Appetite, Poor Fluid Intake, Vomiting, Indigestion, Abdominal cramping Musculoskeletal: reports: No Symptoms Reported, Joint Pain (withdrawal sx), Muscle Pain, Neck Pain Integumentary: reports: Flushing, Sweating Neuro: reports: Headache, Numbness, Tingling, Tremors Endocrine: reports: Increased Thirst Hematology: reports: No Symptoms Reported Psychiatric: reports: Judgement Intact, Mood/Affect Appropiate, Orientated x3, Anxious, Depressed Other Systems: Reviewed and Negative Patient History - Patient Medical History Hx Anemia: No Hx Asthma: No Hx Chronic Obstructive Pulmonary Disease (COPD): No Hx Cancer: No Hx Cardiac Disorders: No Hx Congestive Heart Failure: No Hx Hypertension: No Hx Hypercholesterolemia: No Hx Pacemaker: No HX Cerebrovascular Accident: No Hx Seizures: No Hx Dementia: No Hx Diabetes: No Hx Gastrointestinal Disorders: No Hx Liver Disease: Yes (hep c + no treatment) Hx Genitourinary Disorders: No Hx Sexually Transmitted Disorders: No Hx Renal Disease (ESRD): No Hx Thyroid Disease: No Hx Human Immunodeficiency Virus (HIV): No (NEGATIVE HX) Hx Hepatitis C: Yes (no treatment) Hx Depression: No Hx Suicide Attempt: No (no si) Hx Bipolar Disorder: No Hx Schizophrenia: No - Patient Surgical History Past Surgical History: No Hx Neurologic Surgery: No Hx Cataract Extraction: No Hx Cardiac Surgery: No Hx Lung Surgery: No Hx Breast Surgery: No Hx Breast Biopsy: No Hx Abdominal Surgery: No Hx Appendectomy: No Hx Cholecystectomy: No Hx Genitourinary Surgery: No Hx Section: No Hx Orthopedic Surgery: No Hx Hysterectomy: No Anesthesia Reaction: No - PPD History Previous Implant?: Yes Documented Results: Negative w/proof Implanted On Prior [facility] Admission?: Yes Date: 01/03/17 Results: 0mm PPD to be Administered?: No - Reproductive History Patient is a Female of Child Bearing Age (11 -55 yrs old): No Patient : No - Smoking Cessation Smoking history: Never smoked Have you smoked in the past 12 months: No Hx Chewing Tobacco Use: No Initiated information on smoking cessation: No 'Breaking Loose' booklet given: 05/01/17 - Substance & Tx. History Hx Alcohol Use: Yes Hx Substance Use: Yes Substance Use Type: Alcohol, Cocaine, Heroin, Marijuana, Opiates, Prescribed, Tranquilizers Hx Substance Use Treatment: Yes (st. amin) - Substances Abused Alcohol Route: Oral Frequency: Daily Amount used: 1 [place] Age of first use: 29 Date of Last Use: 04/30/17 Benzodiazepine (Klonopin) Route: Oral Frequency: Daily Amount used: 6MG Age of first use: 29 Date of Last Use: 04/30/17 Crack Route: Smoking Frequency: Daily Amount used: $200-300 Age of first use: 29 Date of Last Use: 04/30/17 Family Disease History - Family Disease History Family Disease History: Heart Disease: Father ([place],ALCOHOL), Other: Father Admission Physical Exam BHS - Vital Signs Vital Signs: Vital Signs - 24 hr 05/01/17 15:52 Temperature 97.1 F L Pulse Rate 92 H Respiratory 20 Rate Blood Pressure 118/74 - Physical General Appearance: Yes: Nourished, Appropriately Dressed, Disheveled, Mild Distress, Thin, Tremorous, Irritable, Sweating, Anxious HEENTM: Yes: Within Normal Limits, EOMI, Hearing grossly Normal, Normal ENT Inspection, Normocephalic, Normal Voice, FRED, Pharynx Normal Respiratory: Yes: Within Normal Limits, Chest Non-Tender, Lungs Clear, Normal Breath Sounds, No Respiratory Distress, No Accessory Muscle Use Neck: Yes: Within Normal Limits, No masses,lesions,Nodules, Supple, Trachea in good position Breast: Yes: Breast Exam Deferred Cardiology: Yes: Within Normal Limits, Regular Rhythm, Regular Rate, S1, S2 Abdominal: Yes: Within Normal Limits, Normal Bowel Sounds, Non Tender, Flat, Soft, Increased Bowel Sounds Genitourinary: Yes: Within Normal Limits Back: Yes: Within Normal Limits, Normal Inspection Musculoskeletal: Yes: full range of Motion, Gait Steady, Pelvis Stable, Back pain, Muscle Pain Extremities: Yes: Normal Capillary Refill, Normal Range of Motion, Non-Tender, Tremors 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: 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 NML intact, Fully Oriented, Alert, Motor Strength 5/5, Normal Response, Depressed Affect Integumentary: Yes: Normal Color, Warm, Diaphoresis, Moist Lymphatic: Yes: Within Normal Limits - Addiitonal Findings: withdrawal sx - Diagnostic (1) Alcohol dependence with uncomplicated withdrawal Current Visit: No Status: Acute (2) Alcohol-induced mood disorder Current Visit: No Status: Acute (3) Alcohol-induced sleep disorder Current Visit: No Status: Acute (4) Cocaine dependence Current Visit: No Status: Acute Qualifiers: Substance use status: uncomplicated Qualified Code(s): F14.20 - Cocaine dependence, uncomplicated (5) Drug-induced mood disorder Current Visit: No Status: Acute (6) Heroin dependence Current Visit: No Status: Acute (7) Insomnia Current Visit: No Status: Acute Qualifiers: Insomnia type: unspecified Qualified Code(s): G47.00 - Insomnia, unspecified (8) Marihuana dependence Current Visit: No Status: Acute (9) Weight decreased Current Visit: No Status: Acute (10) Alcohol dependence Current Visit: No Status: Chronic (11) GERD (gastroesophageal reflux disease) Current Visit: No Status: Chronic Qualifiers: Esophagitis presence: without esophagitis Qualified Code(s): K21.9 - Gastro -esophageal reflux disease without esophagitis (12) Hepatitis C Current Visit: No Status: Chronic Qualifiers: Viral hepatitis chronicity: chronic Hepatic coma status: without hepatic coma Qualified Code(s): B18.2 - Chronic viral hepatitis C (13) Sedative/hypnotic withdrawal without complication Current Visit: No Status: Acute Cleared for Admission [facility] - Detox or Rehab [facility] Level of Care: Medically Managed Detox Regimen/Protocol: Librium [facility] Breath Alcohol Content Breath Alcohol Content: 0 Urine Drug Screen - Results Drug Screen Negative: No Urine Drug Screen Results: VINEET-Cocaine, MET-Methamphetamine, BZO-Benzodiazepines
[2017-05-01] MEDS ORDERED: guaiFENesin/D-METHORPHAN HB 10 ML UNIT-DOSE CUPS PO PRN (17:20)
[2017-05-01] MEDS ORDERED: IBUPROFEN 400 MG TABLET (FP) PO PRN (17:20)
[2017-05-01] MEDS ORDERED: ACETAMINOPHEN 325 MG TABLET (FP) PO PRN (17:20)
[2017-05-01] MEDS ORDERED: MENTHOL/PHENOL 1 EACH UD MM PRN (17:20)
[2017-05-01] MEDS ORDERED: LOPERAMIDE HCL 2 MG CAPSULE PO PRN (17:20)
[2017-05-01] MEDS ORDERED: MAGNESIUM HYDROX 2400MG/30ML ORAL SUSPENSION 30 ML CUP PO PRN (17:20)
[2017-05-01] MEDS ORDERED: MAGNESIUM CITRATE 300 ML BOTTLE PO PRN (17:20)
[2017-05-01] MEDS ORDERED: P-EPHED 60MG/TRIPROLIDI 2.5MG TABLET PO PRN (17:20)
[2017-05-01] MEDS ORDERED: MAG HYDROX/AL HYDROX/SIMETH 30 ML UNIT-DOSE CUP PO PRN (17:20)
[2017-05-01] MEDS ORDERED: ONDANSETRON *ODT* 4 MG TABLET SL PRN (17:24)
[2017-05-01] MEDS ORDERED: diazePAM 5 MG TABLET PO ONE (17:45)
[2017-05-01] MEDS ORDERED: ONDANSETRON *ODT* 4 MG TABLET SL ONE (18:00)
[2017-05-01] MEDS: THIAMINE HCL 100 MG TABLET (FP) PO SCH (22:19)
[2017-05-01] MEDS: diazePAM 5 MG TABLET PO SCH (22:19)
--- NOTE | 2017-05-01 22:23 | PN ---
S Progress Note Note: Patient evaluated by the bedside re: abnormal EKG Patient OAx3, no apparent distress. Denies chest pain, SOB , dyspnea, palpations or cardiac hx increase fluids Continue detox repeat EKG ASA 81 mg QD
[2017-05-01 23:54] LABS: URINE APPEARANCE CLEAR; URINE BILIRUBIN NEGATIVE (NEGATIVE); URINE BLOOD NEGATIVE (NEGATIVE); URINE COLOR YELLOW; URINE GLUCOSE (UA) NEGATIVE (NEGATIVE); URINE KETONE NEGATIVE (NEGATIVE); URINE LEUK ESTERASE NEGATIVE (NEGATIVE); URINE NITRITE NEGATIVE (NEGATIVE); URINE PROTEIN NEGATIVE (NEGATIVE)
[2017-05-02] MEDS: diazePAM 5 MG TABLET PO SCH ×3 (05:03→22:05)
--- NOTE | 2017-05-02 07:23 | PN ---
B[facility] Progress Note Note: EKG ON 05/01/17 NSR REPOLARIZATION PROLONG QT/QTC 390/429 REPEAT EKG 1 DEGREE AV BLOCK QT/QTC 406/422 NO CHEST PAIN,NO SOB,NO DIZZINESS Vital Signs Temperature 97.0 F L 05/02/17 06:25 Pulse Rate 74 05/02/17 06:25 Respiratory Rate 18 05/02/17 06:25 Blood Pressure 101/72 05/02/17 06:25 O2 Sat by Pulse Oximetry (%) NO CHEST PAIN,NO SOB,NO DIZZINESS TREATMENT CLOSE MONITORING REPEAT EKG AT 0900 CONTINUE DETOX
[2017-05-02 10:06] LABS: HEMATOCRIT 38.1 % (35.4-49); HEMOGLOBIN 12.1 GM/dL (11.7-16.9); MCH 28.6 pg (25.7-33.7); MCHC 31.7 g/dl (32.0-35.9); MEAN CELL VOLUME 90.1 fl (80-96); MEAN PLT VOLUME 8.8 fl (7.5-11.1); PLATELET COUNT 166 K/MM3 (134-434); RBC 4.23 M/mm3 (4.00-5.60); RDW 16.1 % (11.9-15.9); WHITE BLOOD COUNT 3.7 K/mm3 (4.0-10.0)
[2017-05-02 10:15] LABS: CHLORIDE 104 mmol/L (98-107); SODIUM 138 mmol/L (136-145)
[2017-05-02 10:22] LABS: ALK PHOS 61 U/L (45-117); ANION GAP 5 (8-16); BILIRUBIN,TOTAL 0.4 mg/dL (0.2-1.0); BLOOD UREA NITROGEN 17 mg/dL (7-18); CO2 29 mmol/L (21-32); CREATININE 1.2 mg/dL (0.7-1.3); GLUCOSE,RANDOM 118 mg/dL (74-106); SGOT/AST 23 U/L (15-37); SGPT/ALT 29 U/L (12-78); TOT PROT 6.2 g/dl (6.4-8.2)
[2017-05-02] MEDS: PRENATAL VITAMINS W/ FOLIC ACID TABLET (FP) PO SCH (10:31)
[2017-05-02] MEDS: ASPIRIN COATED 81 MG TABLET.EC PO SCH (10:31)
--- NOTE | 2017-05-02 11:10 | PN ---
S CIWA - CIWA Score Nausea/Vomitin (N/V) Muscle Tremors: 3 Anxiety: 4-Mod. Anxious/Guarded Agitation: 4-Moderately Restless Paroxysmal Sweats: 1-Minimal Palms Moist Orientation: 0-Oriented Tacttile Disturbances: 3-Moderate Itch/Numb/Burn Auditory Disturbances: 0-None Visual Disturbances: 0-None Headache: 0-None Present CIWA-Ar Total Score: 20 BHS Progress Note (SOAP) Subjective: C/O ANXIETY,SWEATS,TREMORS,NAUSEA/VOMITING, BODY ACHES. ALERT O X 3. NAD. DENIES CHEST PAIN OR DIZZINESS. Objective: 05/02/17 11:09 Vital Signs Temperature 96.1 F L 05/02/17 09:09 Pulse Rate 74 05/02/17 09:09 Respiratory Rate 18 05/02/17 09:09 Blood Pressure 109/77 05/02/17 09:09 O2 Sat by Pulse Oximetry (%) Laboratory Last Values WBC 3.7 K/mm3 (4.0-10.0) L 05/02/17 06:00 RBC 4.23 M/mm3 (4.00-5.60) 05/02/17 06:00 Hgb 12.1 GM/dL (11.7-16.9) 05/02/17 06:00 Hct 38.1 % (35.4-49) 05/02/17 06:00 MCV 90.1 fl (80-96) 05/02/17 06:00 MCH 28.6 pg (25.7-33.7) 05/02/17 06:00 MCHC 31.7 g/dl (32.0-35.9) L 05/02/17 06:00 RDW 16.1 % (11.9-15.9) H D 05/02/17 06:00 Plt Count 166 K/MM3 (134-434) 05/02/17 06:00 MPV 8.8 fl (7.5-11.1) 05/02/17 06:00 Sodium 138 mmol/L (136-145) 05/02/17 06:00 Potassium 4.0 mmol/L (3.5-5.1) 05/02/17 06:00 Chloride 104 mmol/L (98-107) 05/02/17 06:00 Carbon Dioxide 29 mmol/L (21-32) 05/02/17 06:00 Anion Gap 5 (8-16) L 05/02/17 06:00 BUN 17 mg/dL (7-18) D 05/02/17 06:00 Creatinine 1.2 mg/dL (0.7-1.3) 05/02/17 06:00 Creat Clearance w eGFR > 60 (>60) 05/02/17 06:00 Random Glucose 118 mg/dL (74-106) H 05/02/17 06:00 Calcium 8.0 mg/dL (8.5-10.1) L 05/02/17 06:00 Total Bilirubin 0.4 mg/dL (0.2-1.0) 05/02/17 06:00 AST 23 U/L (15-37) D 05/02/17 06:00 ALT 29 U/L (12-78) 05/02/17 06:00 Alkaline Phosphatase 61 U/L (45-117) 05/02/17 06:00 Total Protein 6.2 g/dl (6.4-8.2) L 05/02/17 06:00 Albumin 3.0 g/dl (3.4-5.0) L 05/02/17 06:00 Urine Color Yellow 05/01/17 23:40 Urine Appearance Clear 05/01/17 23:40 Urine pH 6.0 (5.0-8.0) 05/01/17 23:40 Ur Specific [place] 1.025 (1.001-1.035) 05/01/17 23:40 Urine Protein Negative (NEGATIVE) 05/01/17 23:40 Urine Glucose (UA) Negative (NEGATIVE) 05/01/17 23:40 Urine Ketones Negative (NEGATIVE) 05/01/17 23:40 Urine Blood Negative (NEGATIVE) 05/01/17 23:40 Urine Nitrite Negative (NEGATIVE) 05/01/17 23:40 Urine Bilirubin Negative (NEGATIVE) 05/01/17 23:40 Urine Urobilinogen 2.0 mg/dL (0.2-1.0) 05/01/17 23:40 Ur Leukocyte Esterase Negative (NEGATIVE) 05/01/17 23:40 PT REFUSED REPEAT EKG. SIGNED REFUSAL FORM(SEE NURSES NOTES). PT WAS EXPLAINED THE CONSEQUENCES OF REFUSAL FOR TREATMENT. Assessment: 05/02/17 11:09 WITHDRAWAL SX Plan: CONTINUE DETOX MONITOR PATIENT PER PROTOCOL
--- NOTE | 2017-05-02 16:12 | EKG ---
Test Reason : Blood Pressure : / mmHG Vent. Rate : 065 BPM Atrial Rate : 065 BPM P-R Int : 312 ms QRS Dur : 084 ms QT Int : 406 ms P-R-T Axes : 078 077 067 degrees QTc Int : 422 ms SINUS RHYTHM WITH 1ST DEGREE A-V BLOCK POSSIBLE ACUTE PERICARDITIS ABNORMAL ECG WHEN COMPARED WITH ECG OF 12-FEB-2017 21:21, NO SIGNIFICANT CHANGE WAS FOUND Confirmed by GABE MARIA, CASSIE ([id number]) on 05/02/2017 4:12:26 PM Referred By: Confirmed By:CASSIE BERNAL MD
[2017-05-02] MEDS: THIAMINE HCL 100 MG TABLET (FP) PO SCH (22:05)
[2017-05-03] MEDS: PRENATAL VITAMINS W/ FOLIC ACID TABLET (FP) PO SCH (10:09)
[2017-05-03] MEDS: ASPIRIN COATED 81 MG TABLET.EC PO SCH (10:10)
[2017-05-03] MEDS: diazePAM 5 MG TABLET PO SCH ×2 (10:10→22:01)
[2017-05-03] MEDS: RANITIDINE HCL 150 MG TABLET (FP) PO SCH (10:56)
--- NOTE | 2017-05-03 12:11 | PN ---
S CIWA - CIWA Score Nausea/Vomitin Muscle Tremors: 4-Moderate,w/Arms Extend Anxiety: 3 Agitation: 2 Paroxysmal Sweats: No Perspiration Orientation: 2-Disoriented Date<2 days Tacttile Disturbances: 2-Mild Itch/Numbness/Burn Auditory Disturbances: 2-Mild Harshness/Frighten Visual Disturbances: 0-None Headache: 0-None Present CIWA-Ar Total Score: 18 BHS Progress Note (SOAP) Subjective: Tremors, Body Aches, Nausea, Anxious. Objective: PT. A & O X 2 (UNCERTAIN ABOUT CURRENT DAY / DATE). NO ACUTE DISTRESS. 05/03/17 12:09 Vital Signs Temperature 96.7 F L 05/03/17 09:30 Pulse Rate 83 05/03/17 09:30 Respiratory Rate 18 05/03/17 09:30 Blood Pressure 117/80 05/03/17 09:30 O2 Sat by Pulse Oximetry (%) Laboratory Tests 05/01/17 05/02/17 05/02/17 23:40 06:00 06:00 WBC 3.7 L RBC 4.23 Hgb 12.1 Hct 38.1 MCV 90.1 MCH 28.6 MCHC 31.7 L RDW 16.1 H D Plt Count 166 MPV 8.8 Sodium 138 Potassium 4.0 Chloride 104 Carbon Dioxide 29 Anion Gap 5 L BUN 17 D Creatinine 1.2 Creat Clearance w eGFR > 60 Random Glucose 118 H Calcium 8.0 L Total Bilirubin 0.4 AST 23 D ALT 29 Alkaline Phosphatase 61 Total Protein 6.2 L Albumin 3.0 L Urine Color Yellow Urine Appearance Clear Urine pH 6.0 Ur Specific [place] 1.025 Urine Protein Negative Urine Glucose (UA) Negative Urine Ketones Negative Urine Blood Negative Urine Nitrite Negative Urine Bilirubin Negative Urine Urobilinogen 2.0 Ur Leukocyte Esterase Negative RPR Titer 05/02/17 06:00 WBC RBC Hgb Hct MCV MCH MCHC RDW Plt Count MPV Sodium Potassium Chloride Carbon Dioxide Anion Gap BUN Creatinine Creat Clearance w eGFR Random Glucose Calcium Total Bilirubin AST ALT Alkaline Phosphatase Total Protein Albumin Urine Color Urine Appearance Urine pH Ur Specific [place] Urine Protein Urine Glucose (UA) Urine Ketones Urine Blood Urine Nitrite Urine Bilirubin Urine Urobilinogen Ur Leukocyte Esterase RPR Titer Nonreactive LABS NOTED. Assessment: 05/03/17 12:10 WITHDRAWAL SYMPTOMS. Plan: CONTINUE DETOX. INCREASE DAILY PO FLUID INTAKE.
[2017-05-03] MEDS: diazePAM 5 MG TABLET PO PRN (17:42)
[2017-05-03] MEDS: THIAMINE HCL 100 MG TABLET (FP) PO SCH (22:01)
[2017-05-03] MEDS: hydrOXYzine PAMOATE 50 MG CAPSULE (FP) PO PRN (22:02)
[2017-05-04] MEDS: diazePAM 5 MG TABLET PO SCH ×2 (10:22→22:15)
[2017-05-04] MEDS: RANITIDINE HCL 150 MG TABLET (FP) PO SCH (10:22)
[2017-05-04] MEDS: ASPIRIN COATED 81 MG TABLET.EC PO SCH (10:22)
[2017-05-04] MEDS: PRENATAL VITAMINS W/ FOLIC ACID TABLET (FP) PO SCH (10:22)
--- NOTE | 2017-05-04 14:17 | PN ---
[facility] Progress Note (SOAP) Subjective: Anxious, Fatigue. Objective: PT. A & O X 3. NO ACUTE DISTRESS. 05/04/17 14:15 Vital Signs Temperature 97.9 F 05/04/17 09:49 Pulse Rate 87 05/04/17 09:49 Respiratory Rate 18 05/04/17 09:49 Blood Pressure 100/62 05/04/17 09:49 O2 Sat by Pulse Oximetry (%) Laboratory Tests 05/01/17 05/02/17 05/02/17 23:40 06:00 06:00 WBC 3.7 L RBC 4.23 Hgb 12.1 Hct 38.1 MCV 90.1 MCH 28.6 MCHC 31.7 L RDW 16.1 H D Plt Count 166 MPV 8.8 Sodium 138 Potassium 4.0 Chloride 104 Carbon Dioxide 29 Anion Gap 5 L BUN 17 D Creatinine 1.2 Creat Clearance w eGFR > 60 Random Glucose 118 H Calcium 8.0 L Total Bilirubin 0.4 AST 23 D ALT 29 Alkaline Phosphatase 61 Total Protein 6.2 L Albumin 3.0 L Urine Color Yellow Urine Appearance Clear Urine pH 6.0 Ur Specific [place] 1.025 Urine Protein Negative Urine Glucose (UA) Negative Urine Ketones Negative Urine Blood Negative Urine Nitrite Negative Urine Bilirubin Negative Urine Urobilinogen 2.0 Ur Leukocyte Esterase Negative RPR Titer 05/02/17 06:00 WBC RBC Hgb Hct MCV MCH MCHC RDW Plt Count MPV Sodium Potassium Chloride Carbon Dioxide Anion Gap BUN Creatinine Creat Clearance w eGFR Random Glucose Calcium Total Bilirubin AST ALT Alkaline Phosphatase Total Protein Albumin Urine Color Urine Appearance Urine pH Ur Specific [place] Urine Protein Urine Glucose (UA) Urine Ketones Urine Blood Urine Nitrite Urine Bilirubin Urine Urobilinogen Ur Leukocyte Esterase RPR Titer Nonreactive labs noted. Assessment: 05/04/17 14:15 WITHDRAWAL SYMPTOMS. Plan: CONTINUE DETOX.
[2017-05-04] MEDS: diazePAM 5 MG TABLET PO PRN (15:41)
[2017-05-04] MEDS: THIAMINE HCL 100 MG TABLET (FP) PO SCH (22:15)
[2017-05-04] MEDS: hydrOXYzine PAMOATE 50 MG CAPSULE (FP) PO PRN (22:15)
[2017-05-05] MEDS ORDERED: diazePAM 5 MG TABLET PO SCH (10:00)
--- NOTE | 2017-05-05 11:02 | PN ---
BHS Progress Note (SOAP) Subjective: Tremors nasal congestion Anxious Objective: 05/05/17 10:59 tremulous Anxious Vital Signs Temperature 97.2 F L 05/05/17 06:14 Pulse Rate 78 05/05/17 06:14 Respiratory Rate 18 05/05/17 06:14 Blood Pressure 99/70 05/05/17 06:14 O2 Sat by Pulse Oximetry (%) Assessment: 05/05/17 11:01 withdrawal sx Plan: continue detox For d/c tomorrow.
[2017-05-05] MEDS: ASPIRIN COATED 81 MG TABLET.EC PO SCH (11:30)
[2017-05-05] MEDS: PRENATAL VITAMINS W/ FOLIC ACID TABLET (FP) PO SCH (11:30)
[2017-05-05] MEDS: RANITIDINE HCL 150 MG TABLET (FP) PO SCH (11:30)
[2017-05-05] MEDS: hydrOXYzine PAMOATE 50 MG CAPSULE (FP) PO PRN (22:02)
[2017-05-05] MEDS: THIAMINE HCL 100 MG TABLET (FP) PO SCH (22:02)
[2017-05-06 09:51] VITALS: BP 110/72; PULSE 80; TEMP 96.4
[2017-05-06] MEDS: ASPIRIN COATED 81 MG TABLET.EC PO SCH (10:07)
[2017-05-06] MEDS: PRENATAL VITAMINS W/ FOLIC ACID TABLET (FP) PO SCH (10:07)
[2017-05-06] MEDS: RANITIDINE HCL 150 MG TABLET (FP) PO SCH (10:07)
== END 2017-05-06 11:24 | disposition other institution (70) | DRG 773 ==
LOC: YASAS 12:43 → Y3N 17:12
PROVIDERS: ADMIT Internal Medicine; ATTEND Internal Medicine
PROC: HZ2ZZZZ Detoxification Services for Substance Abuse Treatment (ICD-10-PCS; principal; 2017-05-01)
DX: F11.23 Opioid dependence with withdrawal (principal); F13.230 Sedative, hypnotic or anxiolytic dependence with withdrawal, uncomplicated; F10.230 Alcohol dependence with withdrawal, uncomplicated; F14.20 Cocaine dependence, uncomplicated; F12.20 Cannabis dependence, uncomplicated; F10.24 Alcohol dependence with alcohol-induced mood disorder; F10.282 Alcohol dependence with alcohol-induced sleep disorder; G47.00 Insomnia, unspecified; B18.2 Chronic viral hepatitis C; F19.24 Other psychoactive substance dependence with psychoactive substance-induced mood disorder; R63.4 Abnormal weight loss; Z68.20 Body mass index [BMI] 20.0-20.9, adult
CPT/HCPCS: 36415; 80053; 81003; 85027; 86593; 93005; 93010

== ENCOUNTER 2017-05-06 11:41 | Inpatient (IN) | payer OTHER ==
[2017-05-06 12:06] VITALS: BMI 21.1
[2017-05-06] MEDS ORDERED: LOPERAMIDE HCL 2 MG CAPSULE PO PRN (12:26)
[2017-05-06] MEDS ORDERED: guaiFENesin/D-METHORPHAN HB 10 ML UNIT-DOSE CUPS PO PRN (12:26)
[2017-05-06] MEDS ORDERED: MAG HYDROX/AL HYDROX/SIMETH 30 ML UNIT-DOSE CUP PO PRN (12:26)
[2017-05-06] MEDS ORDERED: MAGNESIUM HYDROX 2400MG/30ML ORAL SUSPENSION 30 ML CUP PO PRN (12:26)
[2017-05-06] MEDS ORDERED: ACETAMINOPHEN 325 MG TABLET (FP) PO PRN (12:26)
[2017-05-06] MEDS ORDERED: MAGNESIUM CITRATE 300 ML BOTTLE PO PRN (12:26)
[2017-05-06] MEDS ORDERED: P-EPHED 60MG/TRIPROLIDI 2.5MG TABLET PO PRN (12:26)
[2017-05-06] MEDS ORDERED: MENTHOL/PHENOL 1 EACH UD MM PRN (12:26)
--- NOTE | 2017-05-06 12:26 | HP ---
[facility] Assess/Revision - Admission History Admitted to Rehab from: [facility] [place] Date of Admission to Rehab: 05/06/17 - Vital signs Vital Signs: Vital Signs Period Temp Pulse Resp BP Sys/Wu Pulse Ox Last 24 Hr 97 F 78 20 104/66 - Findings Detox History & Physical reviewed: Yes Concur with findings: Yes
--- NOTE | 2017-05-06 13:37 | HP ---
Psychiatrist Admission - Data Date of interview: 05/06/17 Admission source: 3N Identifying data: This is the first [facility] admission for this 56 years old single Black male, unemployed on public assistance, domiciled Medical History: Significant for hepatitis C Psychiatric History: Denies history of previous psychiatric treatment Physical/Sexual Abuse/Trauma History: Denies history of emotional, physical or sexual abuse as well as DV relationship. 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 Denies being on parole/probation currently Vital Signs: Vital Signs - 24 hr 05/06/17 11:55 Temperature 97 F L Pulse Rate 78 Respiratory 20 Rate Blood Pressure 104/66 Allergies/Adverse Reactions: Allergies Allergy/AdvReac Type Severity Reaction Status Date / Time Penicillins Allergy Severe Swelling Verified 05/01/17 16:52 shellfish derived Allergy Severe Swelling Verified 05/01/17 16:52 Date of last physical exam: 05/01/17 Concur with the findings of this exam: Yes - Substance Abuse/Tx History Hx Alcohol Use: Yes Hx Substance Use: Yes Substance Use Type: Alcohol (Started drinking alcohol at age 29, consumes one pint of vodka daily.Last drank on 04/30/17), Cocaine (Started smoking crack cocaine at age 29, consumes $200-300 daily. Last smoked on 04/30/17), Tranquilizers (Started using klonopin at age 29, consumes 6 mg/day.Last used on 04/30/17) Hx Substance Use Treatment: Yes (8 previous inpt detox admissions @ [facility]) Mental Status Exam - Mental Status Exam Alert and Oriented to: Time, Place, Person Cognitive Function: Fair Mood: Anxious Affect: Appropriate Patient Behavior: Cooperative Speech Pattern: Clear Voice Loudness: Normal Thought Process: Intact, Goal Oriented Hallucinations: Denies Suicidal Ideation: Denies Homicidal Ideation: Denies Insight/Judgement: Fair Sleep: Poorly Appetite: Fair Muscle strength/Tone: Normal Gait/Station: Spastic Psychiatric Findings - Problem List ([place] 1, 2,3) (1) Alcohol dependence Current Visit: Yes Status: Acute (2) Cocaine dependence Current Visit: No Status: Acute Qualifiers: Substance use status: uncomplicated Qualified Code(s): F14.20 - Cocaine dependence, uncomplicated (3) Sedative hypnotic or anxiolytic dependence Current Visit: Yes Status: Acute (4) Substance-induced anxiety disorder Current Visit: Yes Status: Acute (5) Substance-induced sleep disorder Current Visit: Yes Status: Acute (6) Hepatitis C Current Visit: No Status: Chronic Qualifiers: Viral hepatitis chronicity: chronic Hepatic coma status: without hepatic coma Qualified Code(s): B18.2 - Chronic viral hepatitis C - Initial Treatment Plan Initial Treatment Plan: 1) Start Belsomra 10 mg po HS prn for insomnia. 2) Monitor progress
[2017-05-06] MEDS: THIAMINE HCL 100 MG TABLET (FP) PO SCH (21:15)
[2017-05-06] MEDS ORDERED: SUVOREXANT 10 MG TABLET PO PRN (22:00)
--- NOTE | 2017-05-07 09:43 | PN ---
Psychiatric Progress Note Vital Signs: Vital Signs Period Temp Pulse Resp BP Sys/Wu Pulse Ox Last 24 Hr 95.6 F-97 F 73-78 16-20 101-104/66-68 Date of Session: 05/07/17 Chief Complaint:: Insomnia HPI: Patient addressing Alcohol, Cocaine and Sedative Dependence comorbid with Substance-Induced Anxiety Disorder and Substance-Induced Sleep Disorder ROS: Hep C Current Medications: Active Medications Generic Name Dose Route Start Last Admin Trade Name Freq PRN Reason Stop Dose Admin Acetaminophen 650 mg 05/06/17 12:26 Tylenol - PO Q4H PRN FEVER Al Hydroxide/Mg Hydroxide 30 ml 05/06/17 12:26 Mylanta Oral Suspension - PO Q6H PRN DYSPEPSIA Eucalyptus/Menthol/Phenol/Sorbitol 1 each 05/06/17 12:26 Cepastat Lozenge - MM Q4H PRN SORE THROAT Guaifenesin 10 ml 05/06/17 12:26 Robitussin Dm - PO Q6H PRN COUGH Ibuprofen 400 mg 05/06/17 12:26 Motrin - PO Q6H PRN Pain Level 4-6 Loperamide HCl 4 mg 05/06/17 12:26 Imodium - PO Q6H PRN DIARRHEA Magnesium Citrate 300 ml 05/06/17 12:26 Citroma - PO Q48H PRN CONSTIPATION Magnesium Hydroxide 30 ml 05/06/17 12:26 Milk Of Magnesia - PO DAILY PRN CONSTIPATION Pseudoephedrine/Triprolidine 1 combo 05/06/17 12:26 Actifed - PO TID PRN NASAL CONGESTION Thiamine HCl 100 mg 05/06/17 22:00 05/06/17 21:15 Vitamin B1 - PO 100 mg HS GIOVANNA Administration Current Side Effect: No Lab tests ordered: Yes Lab tests reviewed: Yes Provider note:: Patient reports experiencing difficulty to sleep. 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 Requests that medication dosage be increased Total face to face time:: 15 Mental Status Exam - Mental Status Exam Alert and Oriented to: Time, Place, Person Cognitive Function: Fair Patient Appearance: Well Groomed Mood: Hopeful, Euthymic Affect: Appropriate Patient Behavior: Cooperative Speech Pattern: Clear Voice Loudness: Normal Thought Process: Intact, Goal Oriented Thought Disorder: Not Present Hallucinations: Denies Suicidal Ideation: Denies Homicidal Ideation: Denies Insight/Judgement: Fair Sleep: Poorly Appetite: Good Muscle strength/Tone: Normal Gait/Station: Normal Psychiatric Treatment Plan - Problem List (1) Alcohol dependence Current Visit: Yes (2) Cocaine dependence Current Visit: No Qualifiers: Substance use status: uncomplicated Qualified Code(s): F14.20 - Cocaine dependence, uncomplicated (3) Sedative hypnotic or anxiolytic dependence Current Visit: Yes (4) Substance-induced anxiety disorder Current Visit: Yes (5) Substance-induced sleep disorder Current Visit: Yes (6) Hepatitis C Current Visit: No Qualifiers: Viral hepatitis chronicity: chronic Hepatic coma status: without hepatic coma Qualified Code(s): B18.2 - Chronic viral hepatitis C Initial treatment plan: 1) Discontinue Belsomra 10 mg po HS prn for insomnia. 2 ) Start Belsomra 10 mg po HS prn for insomnia. 3) Monitor progress
[2017-05-07] MEDS ORDERED: PRENATAL VITAMINS W/ FOLIC ACID TABLET (FP) PO SCH ×2 (10:00→12:45)
[2017-05-07] MEDS: PRENATAL VITAMINS W/ FOLIC ACID TABLET (FP) PO SCH (13:51)
[2017-05-07] MEDS ORDERED: SUVOREXANT 5 MG TABLET ONE (21:33)
[2017-05-07] MEDS: IBUPROFEN 400 MG TABLET (FP) PO PRN (21:34)
[2017-05-07] MEDS: THIAMINE HCL 100 MG TABLET (FP) PO SCH (21:35)
[2017-05-07] MEDS: SUVOREXANT 10 MG, SUVOREXANT 5 MG PO PRN (21:35)
[2017-05-07] MEDS ORDERED: SUVOREXANT 10 MG TABLET PO PRN (22:00)
[2017-05-08] MEDS: PRENATAL VITAMINS W/ FOLIC ACID TABLET (FP) PO SCH (10:00)
--- NOTE | 2017-05-08 14:51 | PN ---
Psychiatric Progress Note Vital Signs: Vital Signs Period Temp Pulse Resp BP Sys/Wu Pulse Ox Last 24 Hr 96 F 69 18-18 100/60 Date of Session: 05/08/17 Chief Complaint:: Insomnia HPI: Patient addressing Alcohol, Cocaine and Sedative Dependence comorbid with Substance-Induced Anxiety Disorder and Substance-Induced Sleep Disorder ROS: Hep C Current Medications: Active Medications Generic Name Dose Route Start Last Admin Trade Name Freq PRN Reason Stop Dose Admin Acetaminophen 650 mg 05/06/17 12:26 Tylenol - PO Q4H PRN FEVER Al Hydroxide/Mg Hydroxide 30 ml 05/06/17 12:26 Mylanta Oral Suspension - PO Q6H PRN DYSPEPSIA Eucalyptus/Menthol/Phenol/Sorbitol 1 each 05/06/17 12:26 Cepastat Lozenge - MM Q4H PRN SORE THROAT Guaifenesin 10 ml 05/06/17 12:26 Robitussin Dm - PO Q6H PRN COUGH Ibuprofen 400 mg 05/06/17 12:26 05/07/17 21:34 Motrin - PO 400 mg Q6H PRN Administration Pain Level 4-6 Loperamide HCl 4 mg 05/06/17 12:26 Imodium - PO Q6H PRN DIARRHEA Magnesium Citrate 300 ml 05/06/17 12:26 Citroma - PO Q48H PRN CONSTIPATION Magnesium Hydroxide 30 ml 05/06/17 12:26 Milk Of Magnesia - PO DAILY PRN CONSTIPATION Multivit/Folic Acid/Iron 1 tab 05/07/17 14:00 05/08/17 10:00 Vitamins (Sjr) - PO 1 tab DAILY GIOVANNA Administration Pseudoephedrine/Triprolidine 1 combo 05/06/17 12:26 Actifed - PO TID PRN NASAL CONGESTION Thiamine HCl 100 mg 05/06/17 22:00 05/07/17 21:35 Vitamin B1 - PO 100 mg HS GIOVANNA Administration Medication(s) Change(s): Start Trazadone 100 mg po HS Current Side Effect: No Lab tests ordered: Yes Lab tests reviewed: Yes Provider note:: Patient continues to report difficulty to sleep despite increase in Belsomra dosage to 15 mg which he took at bedtime last night. Discussed about introducing Trazadone 100 mg po HS. Benefits vs Risks of medication discussed with patient and he agreed to try it Total face to face time:: 15 Mental Status Exam - Mental Status Exam Alert and Oriented to: Time, Place, Person Cognitive Function: Fair Patient Appearance: Well Groomed Mood: Hopeful, Euthymic Patient Behavior: Cooperative Speech Pattern: Clear Voice Loudness: Normal Thought Process: Intact, Goal Oriented Thought Disorder: Not Present Hallucinations: Denies Suicidal Ideation: Denies Insight/Judgement: Fair Sleep: Poorly Appetite: Good Muscle strength/Tone: Normal Gait/Station: Normal Psychiatric Treatment Plan - Problem List (1) Alcohol dependence Current Visit: Yes (2) Cocaine dependence Current Visit: No Qualifiers: Substance use status: uncomplicated Qualified Code(s): F14.20 - Cocaine dependence, uncomplicated (3) Sedative hypnotic or anxiolytic dependence Current Visit: Yes (4) Substance-induced anxiety disorder Current Visit: Yes (5) Substance-induced sleep disorder Current Visit: Yes (6) Hepatitis C Current Visit: No Qualifiers: Viral hepatitis chronicity: chronic Hepatic coma status: without hepatic coma Qualified Code(s): B18.2 - Chronic viral hepatitis C Initial treatment plan: 1) Start Trazadone 100 mg po HS. 2) Monitor progress
[2017-05-08] MEDS ORDERED: SUVOREXANT 5 MG TABLET ONE (21:12)
[2017-05-08] MEDS: IBUPROFEN 400 MG TABLET (FP) PO PRN (21:12)
[2017-05-08] MEDS ORDERED: SUVOREXANT 10 MG TABLET PO ONE (21:12)
[2017-05-08] MEDS: traZODone HCL 100 MG TABLET (FP) PO SCH (21:13)
[2017-05-08] MEDS: SUVOREXANT 10 MG, SUVOREXANT 5 MG PO PRN (21:13)
[2017-05-08] MEDS: THIAMINE HCL 100 MG TABLET (FP) PO SCH (21:13)
[2017-05-09] MEDS: PRENATAL VITAMINS W/ FOLIC ACID TABLET (FP) PO SCH (09:33)
[2017-05-09] MEDS: THIAMINE HCL 100 MG TABLET (FP) PO SCH (21:16)
[2017-05-09] MEDS: traZODone HCL 100 MG TABLET (FP) PO SCH (21:16)
[2017-05-09] MEDS ORDERED: SUVOREXANT 5 MG TABLET PO PRN (22:00)
[2017-05-09] MEDS ORDERED: SUVOREXANT 10 MG TABLET PO PRN (22:00)
[2017-05-09] MEDS: IBUPROFEN 400 MG TABLET (FP) PO PRN (22:12)
[2017-05-10] MEDS: PRENATAL VITAMINS W/ FOLIC ACID TABLET (FP) PO SCH (09:49)
[2017-05-10] MEDS: PANTOPRAZOLE 40 MG TABLET (FP) PO SCH (16:00)
[2017-05-10] MEDS ORDERED: SUVOREXANT 5 MG TABLET ONE (20:26)
[2017-05-10] MEDS ORDERED: SUVOREXANT 10 MG TABLET PO ONE (20:27)
[2017-05-10] MEDS: THIAMINE HCL 100 MG TABLET (FP) PO SCH (21:13)
[2017-05-10] MEDS: traZODone HCL 100 MG TABLET (FP) PO SCH (21:13)
[2017-05-10] MEDS: IBUPROFEN 400 MG TABLET (FP) PO PRN (21:14)
[2017-05-10] MEDS ORDERED: SUVOREXANT 5 MG, SUVOREXANT 10 MG PO PRN (22:00)
[2017-05-11] MEDS: PRENATAL VITAMINS W/ FOLIC ACID TABLET (FP) PO SCH (09:38)
[2017-05-11] MEDS: PANTOPRAZOLE 40 MG TABLET (FP) PO SCH (09:38)
[2017-05-11] MEDS ORDERED: SUVOREXANT 5 MG TABLET ONE (19:45)
[2017-05-11] MEDS ORDERED: SUVOREXANT 10 MG TABLET PO ONE (19:46)
[2017-05-11] MEDS: IBUPROFEN 400 MG TABLET (FP) PO PRN (21:14)
[2017-05-11] MEDS: THIAMINE HCL 100 MG TABLET (FP) PO SCH (21:15)
[2017-05-11] MEDS: traZODone HCL 100 MG TABLET (FP) PO SCH (21:15)
[2017-05-12] MEDS: PANTOPRAZOLE 40 MG TABLET (FP) PO SCH (09:41)
[2017-05-12] MEDS: PRENATAL VITAMINS W/ FOLIC ACID TABLET (FP) PO SCH (09:42)
[2017-05-12] MEDS ORDERED: SUVOREXANT 5 MG TABLET ONE (19:27)
[2017-05-12] MEDS ORDERED: SUVOREXANT 10 MG TABLET PO ONE (19:27)
[2017-05-12] MEDS: IBUPROFEN 400 MG TABLET (FP) PO PRN (21:25)
[2017-05-12] MEDS: traZODone HCL 100 MG TABLET (FP) PO SCH (21:26)
[2017-05-12] MEDS: THIAMINE HCL 100 MG TABLET (FP) PO SCH (21:26)
[2017-05-13] MEDS ORDERED: SUVOREXANT 10 MG TABLET PO PRN (06:34)
[2017-05-13] MEDS: PRENATAL VITAMINS W/ FOLIC ACID TABLET (FP) PO SCH (09:57)
[2017-05-13] MEDS: PANTOPRAZOLE 40 MG TABLET (FP) PO SCH (09:57)
[2017-05-13] MEDS ORDERED: SUVOREXANT 5 MG TABLET ONE (20:32)
[2017-05-13] MEDS ORDERED: SUVOREXANT 10 MG TABLET PO ONE (20:33)
[2017-05-13] MEDS: THIAMINE HCL 100 MG TABLET (FP) PO SCH (21:13)
[2017-05-13] MEDS: traZODone HCL 100 MG TABLET (FP) PO SCH (21:13)
[2017-05-13] MEDS: IBUPROFEN 400 MG TABLET (FP) PO PRN (21:14)
[2017-05-13] MEDS ORDERED: TOLNAFTATE 1% CREAM 15 GM TUBE TP PRN (22:23)
[2017-05-14] MEDS: PANTOPRAZOLE 40 MG TABLET (FP) PO SCH (10:17)
[2017-05-14] MEDS: PRENATAL VITAMINS W/ FOLIC ACID TABLET (FP) PO SCH (10:17)
[2017-05-14] MEDS: traZODone HCL 100 MG TABLET (FP) PO SCH (21:07)
[2017-05-14] MEDS: THIAMINE HCL 100 MG TABLET (FP) PO SCH (21:07)
[2017-05-14] MEDS: IBUPROFEN 400 MG TABLET (FP) PO PRN (21:08)
--- NOTE | 2017-05-15 07:04 | PN ---
Psychiatric Progress Note Vital Signs: Vital Signs Period Temp Pulse Resp BP Sys/Wu Pulse Ox Last 24 Hr 97.5 F-97.5 F 70-76 18-18 118-135/76-77 Date of Session: 05/15/17 Chief Complaint:: Discharge Note HPI: Patient adressing Alcohol, Cocaine and sedative Dependence comorbid with Substance-Induced Anxiety Disorder and Substance-Induced Sleep Disorder ROS: Hep C Current Medications: Active Medications Generic Name Dose Route Start Last Admin Trade Name Freq PRN Reason Stop Dose Admin Acetaminophen 650 mg 05/06/17 12:26 Tylenol - PO Q4H PRN FEVER Al Hydroxide/Mg Hydroxide 30 ml 05/06/17 12:26 05/09/17 19:53 Mylanta Oral Suspension - PO 30 ml Q6H PRN Administration DYSPEPSIA Eucalyptus/Menthol/Phenol/Sorbitol 1 each 05/06/17 12:26 Cepastat Lozenge - MM Q4H PRN SORE THROAT Guaifenesin 10 ml 05/06/17 12:26 Robitussin Dm - PO Q6H PRN COUGH Ibuprofen 400 mg 05/06/17 12:26 05/14/17 21:08 Motrin - PO 400 mg Q6H PRN Administration Pain Level 4-6 Loperamide HCl 4 mg 05/06/17 12:26 Imodium - PO Q6H PRN DIARRHEA Magnesium Citrate 300 ml 05/06/17 12:26 Citroma - PO Q48H PRN CONSTIPATION Magnesium Hydroxide 30 ml 05/06/17 12:26 Milk Of Magnesia - PO DAILY PRN CONSTIPATION Pantoprazole Sodium 40 mg 05/10/17 15:20 05/14/17 10:17 Protonix - PO 40 mg DAILY GIOVANNA Administration Multivit/Folic Acid/Iron 1 tab 05/07/17 14:00 05/14/17 10:17 Vitamins (Sjr) - PO 1 tab DAILY GIOVANNA Administration Pseudoephedrine/Triprolidine 1 combo 05/06/17 12:26 Actifed - PO TID PRN NASAL CONGESTION Thiamine HCl 100 mg 05/06/17 22:00 05/14/17 21:07 Vitamin B1 - PO 100 mg HS GIOVANNA Administration Tolnaftate 1 applic 05/13/17 22:23 Tinactin 1% Cream - TP Q12H PRN FOR ITCHING Trazodone HCl 100 mg 05/08/17 22:00 05/14/17 21:07 Desyrel - PO 100 mg HS GIOVANNA Administration Current Side Effect: No Lab tests ordered: Yes Lab tests reviewed: Yes Provider note:: Patient will complete this program on 05/16/17. He has met his treatment goals and will continue to address his issues in outpatient treatment at [facility]. Told conventional mortgage underwriter that from his participation in this program, he has learned to stay away from certain negative people that are detrimental to his sobriety. He responded well to Belsomra 15 mg po HS prn for insomnia and Trazadone 100 mg po HS. Script for 30 days supply of Trazadone will electronically be transmitted to [facility] at [address] [place] [address]. He is stable for discharge on 05/16/17 Total face to face time:: 35 Mental Status Exam - Mental Status Exam Alert and Oriented to: Time, Place, Person Cognitive Function: Fair Patient Appearance: Well Groomed Mood: Hopeful, Euthymic Affect: Appropriate Patient Behavior: Cooperative Speech Pattern: Clear Voice Loudness: Normal Thought Process: Intact, Goal Oriented Thought Disorder: Not Present Hallucinations: Denies Suicidal Ideation: Denies Homicidal Ideation: Denies Insight/Judgement: Fair Sleep: Fair Appetite: Good Muscle strength/Tone: Normal Gait/Station: Normal Psychiatric Treatment Plan - Problem List (1) Alcohol dependence Current Visit: Yes (2) Cocaine dependence Current Visit: No Qualifiers: Substance use status: uncomplicated Qualified Code(s): F14.20 - Cocaine dependence, uncomplicated (3) Sedative hypnotic or anxiolytic dependence Current Visit: Yes (4) Substance-induced anxiety disorder Current Visit: Yes (5) Substance-induced sleep disorder Current Visit: Yes (6) Hepatitis C Current Visit: No Qualifiers: Viral hepatitis chronicity: chronic Hepatic coma status: without hepatic coma Qualified Code(s): B18.2 - Chronic viral hepatitis C Initial treatment plan: Patient will be discharged tomorrow and referred to [facility] for outpatient treatment
[2017-05-15] MEDS: PRENATAL VITAMINS W/ FOLIC ACID TABLET (FP) PO SCH (10:25)
[2017-05-15] MEDS: PANTOPRAZOLE 40 MG TABLET (FP) PO SCH (10:25)
[2017-05-15] MEDS ORDERED: PT OWN MED DRAWER 7, Y5N ONE (21:43)
[2017-05-15] MEDS: traZODone HCL 100 MG TABLET (FP) PO SCH (21:44)
[2017-05-15] MEDS: THIAMINE HCL 100 MG TABLET (FP) PO SCH (21:44)
[2017-05-15] MEDS: IBUPROFEN 400 MG TABLET (FP) PO PRN (21:45)
[2017-05-15] MEDS ORDERED: SUVOREXANT 10 MG TABLET PO PRN (22:00)
[2017-05-16 06:45] VITALS: BP 129/82; PULSE 68; TEMP 97.8
== END 2017-05-16 07:20 | disposition home or self-care (01) | DRG 772 ==
LOC: YASAS 11:41 → Y3W 11:42
PROVIDERS: ADMIT Psychiatry & Neurology Psychiatry; ATTEND Psychiatry & Neurology Psychiatry
PROC: HZ42ZZZ Group Counseling for Substance Abuse Treatment, Cognitive-Behavioral (ICD-10-PCS; principal; 2017-05-06)
DX: F10.20 Alcohol dependence, uncomplicated (principal); F13.20 Sedative, hypnotic or anxiolytic dependence, uncomplicated; F12.20 Cannabis dependence, uncomplicated; F19.280 Other psychoactive substance dependence with psychoactive substance-induced anxiety disorder; F19.282 Other psychoactive substance dependence with psychoactive substance-induced sleep disorder; B18.2 Chronic viral hepatitis C

== ENCOUNTER 2017-07-22 15:27 | Inpatient (IN) | payer OTHER ==
[2017-07-22 17:21] VITALS: BMI 20.3
--- NOTE | 2017-07-22 20:30 | HP ---
CIWA Score - CIWA Score Nausea/Vomitin Muscle Tremors: 4-Moderate,w/Arms Extend Anxiety: 3 Agitation: 4-Moderately Restless Paroxysmal Sweats: 1-Minimal Palms Moist Orientation: 0-Oriented Tacttile Disturbances: 0-None Auditory Disturbances: 0-None Visual Disturbances: 0-None Headache: 0-None Present CIWA-Ar Total Score: 14 Admission ROS S - HPI Chief Complaint: " I don't fee l well, I am here for detox and I am very irritable " Allergies/Adverse Reactions: Allergies Allergy/AdvReac Type Severity Reaction Status Date / Time Penicillins Allergy Severe Swelling Verified 07/22/17 19:29 shellfish derived Allergy Severe Swelling Verified 07/22/17 19:29 History of Present Illness: 57 yo male with hx of benzo, cocaine and alcohol dependence is here seeking detox. Last detox [facility] 06/10/17 -06/14/17. PMHX: Hep C, depression, denies any other medical problems. Denies suicidal homicidal ideation or suicide attempts. Denies no significant period of sobriety. Exam Limitations: No Limitations - Ebola screening Have you traveled outside of the country in the last 21 days: No Have you had contact with anyone from an Ebola affected area: No Have you been sick,other than usual withdrawal symptoms: No Do you have a fever: No - Review of Systems Constitutional: Diaphoresis, Loss of Appetite, Changes in sleep, Weakness, Unintentional Wgt. Loss (20 lbs) EENT: reports: Other (runny nose) Respiratory: reports: No Symptoms reported Cardiac: reports: No Symptoms Reported GI: reports: Nausea, Poor Appetite, Poor Fluid Intake, Abdominal cramping : reports: No Symptoms Reported Musculoskeletal: reports: No Symptoms Reported Integumentary: reports: No Symptoms Reported Neuro: reports: Tremors, Weakness Endocrine: reports: Increased Thirst Hematology: reports: No Symptoms Reported Psychiatric: reports: Orientated x3, Depressed Other Systems: Reviewed and Negative Patient History - Patient Medical History Hx Anemia: No Hx Asthma: No Hx Chronic Obstructive Pulmonary Disease (COPD): No Hx Cancer: No Hx Cardiac Disorders: No Hx Congestive Heart Failure: No Hx Hypertension: No Hx Hypercholesterolemia: No Hx Pacemaker: No HX Cerebrovascular Accident: No Hx Seizures: No Hx Dementia: No Hx Diabetes: No Hx Gastrointestinal Disorders: No Hx Liver Disease: Yes (hep c + no treatment) Hx Genitourinary Disorders: No Hx Sexually Transmitted Disorders: No Hx Renal Disease (ESRD): No Hx Thyroid Disease: No Hx Human Immunodeficiency Virus (HIV): No Hx Hepatitis C: Yes (no treatment) Hx Depression: Yes Hx Suicide Attempt: No Hx Bipolar Disorder: No Hx Schizophrenia: No - Patient Surgical History Past Surgical History: No Hx Neurologic Surgery: No Hx Cataract Extraction: No Hx Cardiac Surgery: No Hx Lung Surgery: No Hx Breast Surgery: No Hx Breast Biopsy: No Hx Abdominal Surgery: No Hx Appendectomy: No Hx Cholecystectomy: No Hx Genitourinary Surgery: No Hx Section: No Hx Orthopedic Surgery: No Hx Hysterectomy: No Anesthesia Reaction: No - PPD History Previous Implant?: Yes Documented Results: Negative w/proof Date: 01/03/17 Results: 0 MM PPD to be Administered?: No - Smoking Cessation Smoking history: Never smoked Have you smoked in the past 12 months: No Hx Chewing Tobacco Use: No Initiated information on smoking cessation: Yes 'Breaking Loose' booklet given: 07/22/17 - Substance & Tx. History Hx Alcohol Use: Yes Hx Substance Use: Yes Substance Use Type: Alcohol, Cocaine, Tranquilizers Hx Substance Use Treatment: Yes ([facility] 06/10/17 -06/14/17 ) - Substances Abused Alcohol Route: Oral Frequency: Daily Amount used: liquor- 3 pints, beer- 2 six packs Age of first use: 29 Date of Last Use: 07/21/17 Cocaine Route: Smoking Frequency: Daily Amount used: 4 bags Age of first use: 29 Date of Last Use: 07/21/17 Family Disease History - Family Disease History Family Disease History: Heart Disease: Father ([place],ALCOH[place]), Other: Father Admission Physical Exam S - Vital Signs Vital Signs: Vital Signs - 24 hr 07/22/17 17:20 Temperature 98.3 F Pulse Rate 74 Respiratory 16 Rate Blood Pressure 127/79 - Physical General Appearance: Yes: Appropriately Dressed, Thin, Tremorous (right hand), Irritable, Anxious HEENTM: Yes: EOMI, Hearing grossly Normal, Normal ENT Inspection, Normocephalic , Normal Voice, FRED, Pharynx Normal, Tm's normal Respiratory: Yes: Chest Non-Tender, Lungs Clear, Normal Breath Sounds, No Respiratory Distress, No Accessory Muscle Use Neck: Yes: No masses,lesions,Nodules, Trachea in good position Breast: Yes: Breast Exam Deferred Cardiology: Yes: Regular Rhythm, Regular Rate Abdominal: Yes: Normal Bowel Sounds, Non Tender, Flat, Soft Genitourinary: Yes: Within Normal Limits Back: Yes: Normal Inspection Musculoskeletal: Yes: full range of Motion, Gait Steady, Pelvis Stable Extremities: Yes: Normal Capillary Refill, Normal Inspection, Normal Range of Motion, Non-Tender 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: chef concierge II-XII NML intact, Fully Oriented, Alert, Motor Strength 5/5, Depressed Affect Integumentary: Yes: Normal Color, Warm, Diaphoresis Lymphatic: Yes: Within Normal Limits - Diagnostic (1) Alcohol dependence with uncomplicated withdrawal Current Visit: Yes Status: Acute (2) Cocaine dependence Current Visit: Yes Status: Acute Qualifiers: Substance use status: uncomplicated Qualified Code(s): F14.20 - Cocaine dependence, uncomplicated (3) Sedative hypnotic or anxiolytic dependence Current Visit: No Status: Acute (4) Weight decreased Current Visit: Yes Status: Acute (5) GERD (gastroesophageal reflux disease) Current Visit: Yes Status: Chronic Qualifiers: Esophagitis presence: without esophagitis Qualified Code(s): K21.9 - Gastro -esophageal reflux disease without esophagitis (6) Hepatitis C Current Visit: Yes Status: Chronic Qualifiers: Viral hepatitis chronicity: chronic Hepatic coma status: without hepatic coma Qualified Code(s): B18.2 - Chronic viral hepatitis C Cleared for Admission S - Detox or Rehab [facility] Level of Care: Medically Managed Detox Regimen/Protocol: Librium [facility] Breath Alcohol Content Breath Alcohol Content: 0 Urine Drug Screen - Results Drug Screen Negative: No Urine Drug Screen Results: VINEET-Cocaine
[2017-07-22] MEDS ORDERED: LOPERAMIDE HCL 2 MG CAPSULE PO PRN (20:35)
[2017-07-22] MEDS ORDERED: MAGNESIUM CITRATE 300 ML BOTTLE PO PRN (20:35)
[2017-07-22] MEDS ORDERED: MAG HYDROX/AL HYDROX/SIMETH 30 ML UNIT-DOSE CUP PO PRN (20:35)
[2017-07-22] MEDS ORDERED: guaiFENesin/D-METHORPHAN HB 10 ML UNIT-DOSE CUPS PO PRN (20:35)
[2017-07-22] MEDS ORDERED: MENTHOL/PHENOL 1 EACH UD MM PRN (20:35)
[2017-07-22] MEDS ORDERED: P-EPHED 60MG/TRIPROLIDI 2.5MG TABLET PO PRN (20:35)
[2017-07-22] MEDS ORDERED: IBUPROFEN 400 MG TABLET (FP) PO PRN (20:35)
[2017-07-22] MEDS ORDERED: hydrOXYzine PAMOATE 50 MG CAPSULE (FP) PO PRN (20:35)
[2017-07-22] MEDS ORDERED: MAGNESIUM HYDROX 2400MG/30ML ORAL SUSPENSION 30 ML CUP PO PRN (20:35)
[2017-07-22] MEDS ORDERED: ACETAMINOPHEN 325 MG TABLET (FP) PO PRN (20:39)
[2017-07-22] MEDS ORDERED: chlordiazePOXIDE HCL 25 MG CAPSULE PO PRN (20:40)
[2017-07-22] MEDS ORDERED: chlordiazePOXIDE HCL 25 MG CAPSULE PO ONE (20:45)
[2017-07-22] MEDS: THIAMINE HCL 100 MG TABLET (FP) PO SCH (21:42)
[2017-07-22] MEDS ORDERED: MELATONIN 5 MG TABLETS PO PRN (22:00)
[2017-07-22] MEDS: chlordiazePOXIDE HCL 25 MG CAPSULE PO SCH (22:54)
[2017-07-22 22:57] LABS: URINE APPEARANCE CLEAR; URINE BILIRUBIN NEGATIVE (<2.0 mg/dL); URINE COLOR YELLOW; URINE GLUCOSE (UA) NEGATIVE (NEGATIVE); URINE KETONE NEGATIVE (NEGATIVE); URINE LEUK ESTERASE NEGATIVE (NEGATIVE); URINE NITRITE NEGATIVE (NEGATIVE); URINE PROTEIN NEGATIVE (NEGATIVE); URINE UROBILINOGEN 4.0 E.U/dl mg/dL (0.2-1.0)
[2017-07-23] MEDS: chlordiazePOXIDE HCL 25 MG CAPSULE PO SCH ×4 (05:57→22:07)
[2017-07-23] MEDS: PRENATAL VITAMINS W/ FOLIC ACID TABLET (FP) PO SCH (10:08)
[2017-07-23 10:13] LABS: HEMATOCRIT 39.2 % (35.4-49); HEMOGLOBIN 12.8 GM/dL (11.7-16.9); MCH 29.7 pg (25.7-33.7); MCHC 32.7 g/dl (32.0-35.9); MEAN CELL VOLUME 90.8 fl (80-96); PLATELET COUNT 152 K/MM3 (134-434); RBC 4.31 M/mm3 (4.00-5.60); RDW 14.8 % (11.9-15.9); WHITE BLOOD COUNT 5.1 K/mm3 (4.0-10.0)
--- NOTE | 2017-07-23 10:19 | PN ---
S CIWA - CIWA Score Nausea/Vomitin-No Nausea/No Vomiting Muscle Tremors: 4-Moderate,w/Arms Extend Anxiety: 4-Mod. Anxious/Guarded Agitation: 4-Moderately Restless Paroxysmal Sweats: 1-Minimal Palms Moist Orientation: 0-Oriented Tacttile Disturbances: 0-None Auditory Disturbances: 0-None Visual Disturbances: 0-None Headache: 0-None Present CIWA-Ar Total Score: 13 BHS Progress Note (SOAP) Subjective: ANXIETY,SWEATS, FATIGUE. Objective: 07/23/17 10:18 Vital Signs 07/23/17 07/23/17 07/23/17 06:10 06:30 09:02 Temperature 97.6 F 97.9 F Pulse Rate 86 79 Respiratory 18 18 16 Rate Blood Pressure 113/74 112/72 Laboratory Tests 07/22/17 07/23/17 22:49 07:00 WBC 5.1 D RBC 4.31 Hgb 12.8 Hct 39.2 MCV 90.8 MCH 29.7 MCHC 32.7 RDW 14.8 Plt Count 152 MPV 9.0 Urine Color Yellow Urine Appearance Clear Urine pH 8.0 D Ur Specific [place] 1.018 Urine Protein Negative Urine Glucose (UA) Negative Urine Ketones Negative Urine Blood Negative Urine Nitrite Negative Urine Bilirubin Negative Urine Urobilinogen 4.0 e.u/dl Ur Leukocyte Esterase Negative OTHER LABS PENDING Assessment: 07/23/17 10:18 WITHDRAWAL SX Plan: CONTINUE DETOX
[2017-07-23 10:25] LABS: CHLORIDE 105 mmol/L (98-107); POTASSIUM 3.7 mmol/L (3.5-5.1); SODIUM 139 mmol/L (136-145)
[2017-07-23 10:47] LABS: ALBUMIN 3.2 g/dl (3.4-5.0); ALK PHOS 63 U/L (45-117); ANION GAP 9 (8-16); BILIRUBIN,TOTAL 0.4 mg/dL (0.2-1.0); BLOOD UREA NITROGEN 11 mg/dL (7-18); CALCIUM 8.3 mg/dL (8.5-10.1); CO2 25 mmol/L (21-32); CREATININE 1.2 mg/dL (0.7-1.3); GLUCOSE,RANDOM 111 mg/dL (74-106); SGOT/AST 23 U/L (15-37); SGPT/ALT 33 U/L (12-78); TOT PROT 6.6 g/dl (6.4-8.2)
--- NOTE | 2017-07-23 12:01 | EKG ---
Test Reason : Blood Pressure : / mmHG Vent. Rate : 073 BPM Atrial Rate : 073 BPM P-R Int : 144 ms QRS Dur : 082 ms QT Int : 362 ms P-R-T Axes : 087 081 067 degrees QTc Int : 398 ms NORMAL SINUS RHYTHM RIGHT ATRIAL ENLARGEMENT BORDERLINE ECG Confirmed by MD DORIE, EUGENE ([id number]) on 07/23/2017 12:00:29 PM Referred By: Confirmed By:EUGENE OSHEA MD
--- NOTE | 2017-07-23 15:38 | CONSULT ---
[facility] Psychiatric Consult - Data Date of interview: 07/23/17 Admission source: [facility] Identifying data: Patient is a 57 year old male, father of two, domiciled, and an employee of the [email or web address] department. This is one of multiple admissions for patient. Pt. admitted to for alcohol and cocaine dependence. Substance Abuse History: Following information confirmed with Mr. Adams: - Smoking Cessation. Smoking history: Never smoked. Have you smoked in the past 12 months: No. Hx Chewing Tobacco Use: No. Initiated information on smoking cessation: Yes. 'Breaking Loose' booklet given: 07/22/17. - Substance & Tx. History. Hx Alcohol Use: Yes. Hx Substance Use: Yes. Substance Use Type: Alcohol, Cocaine, Tranquilizers. Hx Substance Use Treatment: Yes ([facility] 06/10/17 - 06/14/17 ). - Substances Abused. Alcohol. Route: Oral. Frequency: Daily. Amount used: liquor- 3 pints, beer- 2 six packs. Age of first use: 29. Date of Last Use: 07/21/17. Cocaine. Route: Smoking. Frequency: Daily. Amount used: 4 bags. Age of first use: 29. Date of Last Use: 07/21/17 Medical History: Hep C Psychiatric History: Patient denies h/o psychiatric hospitalizations, outpatient care, and suicide attempt. Physical/Sexual Abuse/Trauma History: Denies. Mental Status Exam - Mental Status Exam Alert and Oriented to: Time, Place, Person Cognitive Function: Good Patient Appearance: Well Groomed Mood: Euthymic Affect: Mood Congruent Patient Behavior: Cooperative Speech Pattern: Appropriate Voice Loudness: Normal Thought Process: Intact, Goal Oriented Thought Disorder: Not Present Hallucinations: Denies Suicidal Ideation: Denies Homicidal Ideation: Denies Insight/Judgement: Poor Sleep: Poorly Appetite: Fair Muscle strength/Tone: Normal Gait/Station: Normal Psychiatric Findings - Problem List ([place] 1, 2,3) (1) Alcohol dependence with uncomplicated withdrawal Current Visit: Yes Status: Acute (2) Cocaine dependence Current Visit: Yes Status: Acute Qualifiers: Substance use status: uncomplicated Qualified Code(s): F14.20 - Cocaine dependence, uncomplicated (3) Insomnia Current Visit: Yes Status: Acute Qualifiers: Insomnia type: unspecified Qualified Code(s): G47.00 - Insomnia, unspecified - Initial Treatment Plan Initial Treatment Plan: Psychoeducation provided. Detoxification in progress. Belsomra 10mg qhs prn ordered for insomnia. Pt. reports favorable effect from previously accepting belsomra. Benefits and side effects discussed. Verbal consent given. Will continue to monitor.
[2017-07-23] MEDS ORDERED: SUVOREXANT 10 MG TABLET PO PRN (22:00)
[2017-07-23] MEDS: THIAMINE HCL 100 MG TABLET (FP) PO SCH (22:07)
[2017-07-24] MEDS: chlordiazePOXIDE HCL 25 MG CAPSULE PO SCH ×3 (07:16→18:00)
[2017-07-24] MEDS: PRENATAL VITAMINS W/ FOLIC ACID TABLET (FP) PO SCH (10:11)
--- NOTE | 2017-07-24 10:53 | PN ---
S CIWA - CIWA Score Nausea/Vomitin (N/V) Muscle Tremors: 3 Anxiety: 4-Mod. Anxious/Guarded Agitation: 3 Paroxysmal Sweats: No Perspiration Orientation: 0-Oriented Tacttile Disturbances: 0-None Auditory Disturbances: 0-None Visual Disturbances: 0-None Headache: 0-None Present CIWA-Ar Total Score: 15 BHS Progress Note (SOAP) Subjective: ANXIETY,SWEATS,TREMORS,BODY ACHES,NAUSEA/VOMITING, RUNNY NOSE,INTERMITTENT SLEEP. Objective: 07/24/17 10:51 Vital Signs 07/24/17 07/24/17 06:12 09:28 Temperature 97.1 F L 96.6 F L Pulse Rate 70 81 Respiratory 18 20 Rate Blood Pressure 104/71 110/70 Laboratory Tests 07/22/17 07/23/17 07/23/17 22:49 07:00 07:00 WBC 5.1 D RBC 4.31 Hgb 12.8 Hct 39.2 MCV 90.8 MCH 29.7 MCHC 32.7 RDW 14.8 Plt Count 152 MPV 9.0 Sodium 139 Potassium 3.7 Chloride 105 Carbon Dioxide 25 Anion Gap 9 BUN 11 D Creatinine 1.2 Creat Clearance w eGFR > 60 Random Glucose 111 H Calcium 8.3 L Total Bilirubin 0.4 D AST 23 ALT 33 Alkaline Phosphatase 63 Total Protein 6.6 Albumin 3.2 L Urine Color Yellow Urine Appearance Clear Urine pH 8.0 D Ur Specific [place] 1.018 Urine Protein Negative Urine Glucose (UA) Negative Urine Ketones Negative Urine Blood Negative Urine Nitrite Negative Urine Bilirubin Negative Urine Urobilinogen 4.0 e.u/dl Ur Leukocyte Esterase Negative RPR Titer 07/23/17 07:00 WBC RBC Hgb Hct MCV MCH MCHC RDW Plt Count MPV Sodium Potassium Chloride Carbon Dioxide Anion Gap BUN Creatinine Creat Clearance w eGFR Random Glucose Calcium Total Bilirubin AST ALT Alkaline Phosphatase Total Protein Albumin Urine Color Urine Appearance Urine pH Ur Specific [place] Urine Protein Urine Glucose (UA) Urine Ketones Urine Blood Urine Nitrite Urine Bilirubin Urine Urobilinogen Ur Leukocyte Esterase RPR Titer Nonreactive Assessment: 07/24/17 10:51 WITHDRAWAL SX Plan: CONTINUE DETOX ZOFRAN SL DIRECTED ACTIFED PRN PSYCH F/U FOR INSOMNIA
[2017-07-24] MEDS ORDERED: ONDANSETRON *ODT* 4 MG TABLET SL PRN (10:54)
--- NOTE | 2017-07-24 21:10 | PN ---
S Progress Note Note: Psychiatry Attending's note : Patient declines to take belsomra. Order discontinued.
[2017-07-24] MEDS: THIAMINE HCL 100 MG TABLET (FP) PO SCH (22:12)
[2017-07-24] MEDS: chlordiazePOXIDE 5 MG CAPSULE PO SCH (22:12)
[2017-07-25] MEDS: chlordiazePOXIDE 5 MG CAPSULE PO SCH ×3 (05:19→17:43)
[2017-07-25] MEDS: PRENATAL VITAMINS W/ FOLIC ACID TABLET (FP) PO SCH (10:08)
--- NOTE | 2017-07-25 10:40 | PN ---
[facility] Progress Note (SOAP) Subjective: DECREASED ANXIETY,IRRITABILITY. SLIGHT FATIGUE. ALERT O X 3. Objective: 07/25/17 10:40 Vital Signs 07/25/17 07/25/17 07/25/17 05:52 06:30 09:11 Temperature 98.4 F 97.4 F L Pulse Rate 79 84 Respiratory 18 18 20 Rate Blood Pressure 99/66 96/64 Laboratory Tests 07/22/17 07/23/17 07/23/17 22:49 07:00 07:00 WBC 5.1 D RBC 4.31 Hgb 12.8 Hct 39.2 MCV 90.8 MCH 29.7 MCHC 32.7 RDW 14.8 Plt Count 152 MPV 9.0 Sodium 139 Potassium 3.7 Chloride 105 Carbon Dioxide 25 Anion Gap 9 BUN 11 D Creatinine 1.2 Creat Clearance w eGFR > 60 Random Glucose 111 H Calcium 8.3 L Total Bilirubin 0.4 D AST 23 ALT 33 Alkaline Phosphatase 63 Total Protein 6.6 Albumin 3.2 L Urine Color Yellow Urine Appearance Clear Urine pH 8.0 D Ur Specific [place] 1.018 Urine Protein Negative Urine Glucose (UA) Negative Urine Ketones Negative Urine Blood Negative Urine Nitrite Negative Urine Bilirubin Negative Urine Urobilinogen 4.0 e.u/dl Ur Leukocyte Esterase Negative RPR Titer 07/23/17 07:00 WBC RBC Hgb Hct MCV MCH MCHC RDW Plt Count MPV Sodium Potassium Chloride Carbon Dioxide Anion Gap BUN Creatinine Creat Clearance w eGFR Random Glucose Calcium Total Bilirubin AST ALT Alkaline Phosphatase Total Protein Albumin Urine Color Urine Appearance Urine pH Ur Specific [place] Urine Protein Urine Glucose (UA) Urine Ketones Urine Blood Urine Nitrite Urine Bilirubin Urine Urobilinogen Ur Leukocyte Esterase RPR Titer Nonreactive Assessment: 07/25/17 10:40 WITHDRAWAL SX Plan: CONTINUE DETOX
[2017-07-25 14:11] VITALS: TEMP 97.1
--- NOTE | 2017-07-25 15:27 | DS ---
[facility] Detox Discharge Summary Admission Date: 07/22/17 Discharge Date: 07/25/17 - History Present History: Alcohol Dependence, Cocaine Dependence, Sedative Dependence Additional Comments: AT TIME OF DISCHARGE, PATIENT REPORTS THAT HE FEELS WELL OVERALL AND SHERRILL THE IS INTENT ON GOING TO REHAB AT THIS TIME. PATIENT GOING TO [facility] ( [facility]) FOR AFTERCARE. PATIENT WAS DISCHARGED FROM DETOX UNIT TO BE TAKEN OVER TO REHAB UNIT IN STABLE MEDICAL CONDITION. Pertinent Past History: Hep C, Depression, GERD, Weight Decreased, Insomnia. - Physical Exam Results Vital Signs: Vital Signs Temperature 97.1 F L 07/25/17 14:10 Pulse Rate 66 07/25/17 14:10 Respiratory Rate 16 07/25/17 14:10 Blood Pressure 113/70 07/25/17 14:10 O2 Sat by Pulse Oximetry (%) Pertinent Admission Physical Exam Findings: WITHDRAWAL SYMPTOMS. Laboratory Tests 07/22/17 07/23/17 07/23/17 22:49 07:00 07:00 WBC 5.1 D RBC 4.31 Hgb 12.8 Hct 39.2 MCV 90.8 MCH 29.7 MCHC 32.7 RDW 14.8 Plt Count 152 MPV 9.0 Sodium 139 Potassium 3.7 Chloride 105 Carbon Dioxide 25 Anion Gap 9 BUN 11 D Creatinine 1.2 Creat Clearance w eGFR > 60 Random Glucose 111 H Calcium 8.3 L Total Bilirubin 0.4 D AST 23 ALT 33 Alkaline Phosphatase 63 Total Protein 6.6 Albumin 3.2 L Urine Color Yellow Urine Appearance Clear Urine pH 8.0 D Ur Specific [place] 1.018 Urine Protein Negative Urine Glucose (UA) Negative Urine Ketones Negative Urine Blood Negative Urine Nitrite Negative Urine Bilirubin Negative Urine Urobilinogen 4.0 e.u/dl Ur Leukocyte Esterase Negative RPR Titer 07/23/17 07:00 WBC RBC Hgb Hct MCV MCH MCHC RDW Plt Count MPV Sodium Potassium Chloride Carbon Dioxide Anion Gap BUN Creatinine Creat Clearance w eGFR Random Glucose Calcium Total Bilirubin AST ALT Alkaline Phosphatase Total Protein Albumin Urine Color Urine Appearance Urine pH Ur Specific [place] Urine Protein Urine Glucose (UA) Urine Ketones Urine Blood Urine Nitrite Urine Bilirubin Urine Urobilinogen Ur Leukocyte Esterase RPR Titer Nonreactive LABS NOTED. - Treatment Hospital Course: Detox Protocol Followed, Detoxed Safely, Responded well, Discharged Condition Good, Rehab Referral Accepted Patient has Accepted a Rehab Referral to: [facility] ([facility] . - Medication Discharge Medications: Ambulatory Orders traZODone HCL [Desyrel -] 100 mg PO HS #30 tablet 05/15/17 Mirtazapine [Remeron -] 7.5 mg PO HS #14 tablet 06/12/17 - Diagnosis (1) Alcohol dependence with uncomplicated withdrawal Current Visit: Yes Status: Acute (2) Cocaine dependence Current Visit: Yes Status: Acute Qualifiers: Substance use status: uncomplicated Qualified Code(s): F14.20 - Cocaine dependence, uncomplicated (3) GERD (gastroesophageal reflux disease) Current Visit: Yes Status: Chronic Qualifiers: Esophagitis presence: without esophagitis Qualified Code(s): K21.9 - Gastro -esophageal reflux disease without esophagitis (4) Hepatitis C Current Visit: Yes Status: Chronic Qualifiers: Viral hepatitis chronicity: chronic Hepatic coma status: without hepatic coma Qualified Code(s): B18.2 - Chronic viral hepatitis C (5) Sedative hypnotic or anxiolytic dependence Current Visit: Yes Status: Acute (6) Insomnia Current Visit: Yes Status: Acute Qualifiers: Insomnia type: unspecified Qualified Code(s): G47.00 - Insomnia, unspecified (7) Weight decreased Current Visit: Yes Status: Acute - AMA Did Patient Leave Against Medical Advice: No
[2017-07-25 17:53] VITALS: BP 120/74; PULSE 101
[2017-07-25] MEDS ORDERED: chlordiazePOXIDE HCL 10 MG CAPSULE PO SCH (23:00)
== END 2017-07-25 17:58 | disposition other institution (70) | DRG 774 ==
LOC: YASAS 15:27 → Y3N 19:38
PROVIDERS: ADMIT Internal Medicine; ATTEND Internal Medicine
PROC: HZ2ZZZZ Detoxification Services for Substance Abuse Treatment (ICD-10-PCS; principal; 2017-07-22)
DX: F10.230 Alcohol dependence with withdrawal, uncomplicated (principal); F13.20 Sedative, hypnotic or anxiolytic dependence, uncomplicated; F14.20 Cocaine dependence, uncomplicated; K21.9 Gastro-esophageal reflux disease without esophagitis; B18.2 Chronic viral hepatitis C; G47.00 Insomnia, unspecified; Z87.898 Personal history of other specified conditions; Z88.0 Allergy status to penicillin; Z91.013 Allergy to seafood
CPT/HCPCS: 36415; 80053; 81003; 85027; 86593; 93005; 93010

== ENCOUNTER 2017-07-25 18:08 | Inpatient (IN) | payer OTHER ==
--- NOTE | 2017-07-25 15:31 | HP ---
[facility] Rehab Assess/Revision - Admission History Admitted to Rehab from: [facility] Date of Admission to Rehab: 07/25/2017 - Vital signs Vital Signs: NOTED; STABLE. - Findings Detox History & Physical reviewed: Yes Concur with findings: Yes Comments/Additional Findings: PATIENT'S MEDICAL / MEDICATION HISTORY REVIEWED PRIOR TO DISCHARGE FROM DETOX UNIT. PATIENT WAS DISCHARGED FROM DETOX UNIT TO BE TAKEN TO REHAB UNIT IN STABLE MEDICAL CONDITION. Inpatient Rehab Admission - Initial Determination Are CD services needed?: Yes Free of communicable disease: Yes Not in need of hospitalization: Yes - Rehab Admission Criteria Previous failed treatment: Yes Comorbidities: Yes Patient is meeting Inpatient Rehab admission criteria:: Yes
[~2017-07-25 18:08] MED LIST: LOPERAMIDE HCL 2 MG CAPSULE PO PRN; MAG HYDROX/AL HYDROX/SIMETH 30 ML UNIT-DOSE CUP PO PRN; MAGNESIUM CITRATE 300 ML BOTTLE PO PRN; MAGNESIUM HYDROX 2400MG/30ML ORAL SUSPENSION 30 ML CUP PO PRN; MENTHOL/PHENOL 1 EACH UD MM PRN; P-EPHED 60MG/TRIPROLIDI 2.5MG TABLET PO PRN; guaiFENesin/D-METHORPHAN HB 10 ML UNIT-DOSE CUPS PO PRN
[2017-07-25] MEDS: THIAMINE HCL 100 MG TABLET (FP) PO SCH (22:24)
[2017-07-25] MEDS: MELATONIN 5 MG TABLETS PO PRN (22:24)
--- NOTE | 2017-07-26 06:23 | HP ---
Psychiatrist Admission - Data Date of interview: 07/26/17 Admission source: Self-referred Identifying data: This is the [facility] [place] [facility] admission for this 57 years old single Black male, unemployed on public assistance, domiciled Medical History: Significant for hepatitis C Psychiatric History: Denies history of previous psychiatric treatment Physical/Sexual Abuse/Trauma History: Denies history of emotional, physical or sexual abuse as well as DV relationship. Reports serving 3 years in the [employer] with honorable discharge Additional Comment: Reports history of 3 previous arrests including 3 felony convictions. Denies being on parole/probation currently Vital Signs: Vital Signs - 24 hr 07/25/17 07/26/17 07/26/17 18:05 00:55 03:30 Temperature 97.4 F L Pulse Rate 99 H Respiratory 18 20 18 Rate Blood Pressure 117/68 Allergies/Adverse Reactions: Allergies Allergy/AdvReac Type Severity Reaction Status Date / Time Penicillins Allergy Severe Swelling Verified 07/22/17 19:29 shellfish derived Allergy Severe Swelling Verified 07/22/17 19:29 Date of last physical exam: 07/22/17 Concur with the findings of this exam: Yes - Substance Abuse/Tx History Hx Alcohol Use: Yes Hx Substance Use: Yes Substance Use Type: Alcohol (Started drinking alcohol at age 29, consumes 3 pints of liquor & 2x 6pk of beer daily. Last drank on 07/21/17), Cocaine ( Started smking crack cocaine at age 29, consumes 4 bags daily. Last smoked on ) Hx Substance Use Treatment: Yes (10 previous inpt detox & one inpt rehab) Mental Status Exam - Mental Status Exam Alert and Oriented to: Time, Place, Person Cognitive Function: Fair Patient Appearance: Well Groomed Mood: Depressed Patient Behavior: Cooperative Speech Pattern: Clear Voice Loudness: Normal Thought Process: Intact, Goal Oriented Thought Disorder: Not Present Hallucinations: Denies Suicidal Ideation: Denies Homicidal Ideation: Denies Insight/Judgement: Fair Sleep: Poorly Muscle strength/Tone: Normal Gait/Station: Normal Psychiatric Findings - Problem List ([place] 1, 2,3) (1) Alcohol dependence Current Visit: No Status: Acute (2) Cocaine dependence Current Visit: No Status: Acute Qualifiers: Substance use status: uncomplicated Qualified Code(s): F14.20 - Cocaine dependence, uncomplicated (3) Substance induced mood disorder Current Visit: Yes Status: Acute (4) Alcohol-induced sleep disorder Current Visit: No Status: Acute (5) GERD (gastroesophageal reflux disease) Current Visit: No Status: Chronic Qualifiers: Esophagitis presence: without esophagitis Qualified Code(s): K21.9 - Gastro -esophageal reflux disease without esophagitis (6) Hepatitis C Current Visit: No Status: Chronic Qualifiers: Viral hepatitis chronicity: chronic Hepatic coma status: without hepatic coma Qualified Code(s): B18.2 - Chronic viral hepatitis C - Initial Treatment Plan Initial Treatment Plan: 1) Start Trazadone 100 mg po HS for insomnia. 2) Monitor progress
[2017-07-26] MEDS: PRENATAL VITAMINS W/ FOLIC ACID TABLET (FP) PO SCH (09:43)
[2017-07-26] MEDS: THIAMINE HCL 100 MG TABLET (FP) PO SCH (21:31)
[2017-07-26] MEDS: MELATONIN 5 MG TABLETS PO PRN (21:33)
[2017-07-27] MEDS: PRENATAL VITAMINS W/ FOLIC ACID TABLET (FP) PO SCH (10:56)
[2017-07-27] MEDS: THIAMINE HCL 100 MG TABLET (FP) PO SCH (21:35)
[2017-07-27] MEDS: MELATONIN 5 MG TABLETS PO PRN (21:36)
[2017-07-28] MEDS: IBUPROFEN 400 MG TABLET (FP) PO PRN (05:07)
[2017-07-28] MEDS: PRENATAL VITAMINS W/ FOLIC ACID TABLET (FP) PO SCH (10:06)
[2017-07-28] MEDS: traZODone HCL 100 MG TABLET (FP) PO SCH (21:44)
[2017-07-28] MEDS: THIAMINE HCL 100 MG TABLET (FP) PO SCH (21:44)
[2017-07-28] MEDS: ACETAMINOPHEN 325 MG TABLET (FP) PO PRN (21:45)
[2017-07-29] MEDS: IBUPROFEN 400 MG TABLET (FP) PO PRN (05:40)
[2017-07-29] MEDS: PRENATAL VITAMINS W/ FOLIC ACID TABLET (FP) PO SCH (10:24)
[2017-07-29] MEDS: ACETAMINOPHEN 325 MG TABLET (FP) PO PRN (22:13)
[2017-07-29] MEDS: traZODone HCL 100 MG TABLET (FP) PO SCH (22:14)
[2017-07-29] MEDS: THIAMINE HCL 100 MG TABLET (FP) PO SCH (22:14)
[2017-07-30] MEDS: IBUPROFEN 400 MG TABLET (FP) PO PRN ×2 (05:01→16:05)
[2017-07-30] MEDS: PRENATAL VITAMINS W/ FOLIC ACID TABLET (FP) PO SCH (10:28)
[2017-07-30] MEDS: ACETAMINOPHEN 325 MG TABLET (FP) PO PRN (21:18)
[2017-07-30] MEDS: traZODone HCL 100 MG TABLET (FP) PO SCH (21:18)
[2017-07-30] MEDS: THIAMINE HCL 100 MG TABLET (FP) PO SCH (21:18)
[2017-07-31] MEDS: ACETAMINOPHEN 325 MG TABLET (FP) PO PRN (02:04)
[2017-07-31 07:00] VITALS: BP 114/70; PULSE 76; TEMP 97.6
--- NOTE | 2017-07-31 09:52 | PN ---
[facility] Progress Note Note: Informed by nursing staff that patient walked off the unit after saying that today is his discharge date. He would not wait to discuss the issue with the it service continuity supervisor since his counselor is unavailable
== END 2017-07-31 09:45 | disposition left against medical advice (07) | DRG 58 ==
LOC: YASAS 18:08 → Y3W 18:10
PROVIDERS: ADMIT Psychiatry & Neurology Psychiatry; ATTEND Psychiatry & Neurology Psychiatry
PROC: HZ42ZZZ Group Counseling for Substance Abuse Treatment, Cognitive-Behavioral (ICD-10-PCS; principal; 2017-07-25)
DX: F10.282 Alcohol dependence with alcohol-induced sleep disorder (principal); F14.20 Cocaine dependence, uncomplicated; F19.24 Other psychoactive substance dependence with psychoactive substance-induced mood disorder; K21.9 Gastro-esophageal reflux disease without esophagitis; B18.2 Chronic viral hepatitis C; Z88.0 Allergy status to penicillin; Z91.013 Allergy to seafood

== ENCOUNTER 2017-11-02 13:08 | Inpatient (IN) | payer OTHER ==
--- NOTE | 2017-11-02 15:27 | HP ---
COWS - Scale Resting Pulse: 1= [place] 81-100 Sweatin=Flushed/Facial Moisture Restless Observation: 3= Extraneous Movement Pupil Size: 1= Pupils >than Normal Bone or Joint Aches: 2= Severe Diffuse Aches Runny Nose/ Eye Tearin= Runny Nose/Eyes GI Upset > 30mins: 2= Nausea/Diarrhea Tremor Observation: 2= Slight Tremor Visible Yawning Observation: 1= 1-2x During Session Anxiety or Irritability: 2=Irritable/Anxious Goose Flesh Skin: 3=Piloerection COWS Score: 21 CIWA Score - CIWA Score Nausea/Vomitin Muscle Tremors: 3 Anxiety: 3 Agitation: 3 Paroxysmal Sweats: 3 Orientation: 0-Oriented Tacttile Disturbances: 2-Mild Itch/Numbness/Burn Auditory Disturbances: 1-Very Mild Visual Disturbances: 1-Very Mild Sensitivity Headache: 2-Mild CIWA-Ar Total Score: 21 Admission ROS BHS - HPI Chief Complaint: I want to get well Allergies/Adverse Reactions: Allergies Allergy/AdvReac Type Severity Reaction Status Date / Time Penicillins Allergy Severe Swelling Verified 07/22/17 19:29 shellfish derived Allergy Severe Swelling Verified 07/22/17 19:29 History of Present Illness: 57 year old AA male with multiple treatments presents for detox. He has had multiple treatments in this facility, most recently in July. He reports sobriety for 19 years during a period of incarceration Exam Limitations: No Limitations - Ebola screening Have you traveled outside of the country in the last 21 days: No (N) Have you had contact with anyone from an Ebola affected area: No Have you been sick,other than usual withdrawal symptoms: No Do you have a fever: No - Review of Systems Constitutional: Chills, Malaise, Weakness EENT: reports: Blurred Vision, Tearing, Nose Congestion Respiratory: reports: Cough (dry), SOB with Exertion Cardiac: reports: Lightheadedness GI: reports: Diarrhea, Nausea, Poor Appetite, Poor Fluid Intake, Vomiting, Abdominal cramping : reports: No Symptoms Reported Musculoskeletal: reports: Back Pain, Joint Pain, Muscle Pain, Muscle Weakness Neuro: reports: Headache, Tremors, Weakness Endocrine: reports: No Symptoms Reported Hematology: reports: No Symptoms Reported Psychiatric: reports: Anxious Patient History - Patient Medical History Hx Anemia: No Hx Asthma: No Hx Chronic Obstructive Pulmonary Disease (COPD): No Hx Cancer: No Hx Cardiac Disorders: No Hx Congestive Heart Failure: No Hx Hypertension: No Hx Hypercholesterolemia: No Hx Pacemaker: No HX Cerebrovascular Accident: No Hx Seizures: No Hx Dementia: No Hx Diabetes: No Hx Gastrointestinal Disorders: Yes Hx Liver Disease: Yes (hep c + no treatment) Hx Genitourinary Disorders: No Hx Sexually Transmitted Disorders: No Hx Renal Disease (ESRD): No Hx Thyroid Disease: No Hx Human Immunodeficiency Virus (HIV): No Hx Hepatitis C: Yes (no treatment) Hx Depression: No Hx Suicide Attempt: No Hx Bipolar Disorder: No Hx Schizophrenia: No - Patient Surgical History Past Surgical History: No - PPD History Previous Implant?: Yes Documented Results: Negative w/proof Date: 01/03/17 Results: 0 MM PPD to be Administered?: No - Smoking Cessation Smoking history: Never smoked Have you smoked in the past 12 months: No Hx Chewing Tobacco Use: No - Substance & Tx. History Hx Alcohol Use: Yes ([place]) Hx Substance Use: Yes Substance Use Type: Alcohol, Opiates Hx Substance Use Treatment: Yes - Substances Abused Alcohol Route: Oral Frequency: Daily Amount used: 3 pints a day Age of first use: 29 Date of Last Use: 11/02/17 Cocaine Amount used: $100 Age of first use: 29 Date of Last Use: 11/01/17 Non-Rx Methadone Route: Oral Amount used: 50mg Age of first use: 29 Date of Last Use: 11/01/17 Family Disease History - Family Disease History Family Disease History: Heart Disease: Father (AL,ALCOHOL), Other: Father Admission Physical Exam [facility] - Vital Signs Vital Signs: Vital Signs - 24 hr 11/02/17 14:08 Temperature 97.2 F L Pulse Rate 95 H Respiratory 18 Rate Blood Pressure 119/75 - Physical General Appearance: Yes: Mild Distress, Tremorous, Anxious HEENTM: Yes: Hearing grossly Normal, Normal ENT Inspection, Normocephalic, Pharynx Normal, Tm's normal Respiratory: Yes: Chest Non-Tender, Lungs Clear, Normal Breath Sounds, No Respiratory Distress, No Accessory Muscle Use Neck: Yes: No masses,lesions,Nodules, Supple Breast: Yes: Breast Exam Deferred Cardiology: Yes: Regular Rhythm, Regular Rate, S1, S2 Abdominal: Yes: Normal Bowel Sounds, Non Tender, Soft Genitourinary: Yes: Within Normal Limits Back: Yes: Normal Inspection Musculoskeletal: Yes: full range of Motion, Gait Steady, Pelvis Stable, Back pain, Muscle Pain, Muscle weakness Extremities: Yes: Normal Capillary Refill, Normal Range of Motion, Tremors 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: family protection specialist II-XII NML intact, Fully Oriented, Alert, Normal Mood/ Affect, Normal Response Integumentary: Yes: Normal Color, Dry, Clammy Lymphatic: Yes: Within Normal Limits - Diagnostic (1) Alcohol dependence with uncomplicated withdrawal Current Visit: Yes Status: Acute (2) Anxiolytic withdrawal without complication Current Visit: Yes Status: Acute (3) Heroin dependence Current Visit: Yes Status: Acute (4) Insomnia Current Visit: Yes Status: Acute Qualifiers: Insomnia type: drug-induced Qualified Code(s): F19.982 - Other psychoactive substance use, unspecified with psychoactive substance-induced sleep disorder (5) Sedative hypnotic or anxiolytic dependence Current Visit: Yes Status: Acute (6) GERD (gastroesophageal reflux disease) Current Visit: Yes Status: Chronic Qualifiers: Esophagitis presence: without esophagitis Qualified Code(s): K21.9 - Gastro -esophageal reflux disease without esophagitis (7) Hepatitis C Current Visit: Yes Status: Chronic Qualifiers: Viral hepatitis chronicity: chronic Cleared for Admission S - Detox or Rehab [facility] Level of Care: Medically Managed Detox Regimen/Protocol: Methadone/Librium [facility] Breath Alcohol Content Breath Alcohol Content: 0 Urine Drug Screen - Results Drug Screen Negative: No Urine Drug Screen Results: VINEET-Cocaine, MTD-Methadone
[2017-11-02] MEDS ORDERED: MAG HYDROX/AL HYDROX/SIMETH 30 ML UNIT-DOSE CUP PO PRN (15:40)
[2017-11-02] MEDS ORDERED: P-EPHED 60MG/TRIPROLIDI 2.5MG TABLET PO PRN (15:40)
[2017-11-02] MEDS ORDERED: chlordiazePOXIDE HCL 25 MG CAPSULE PO PRN (15:40)
[2017-11-02] MEDS ORDERED: METHADONE HCL 10 MG TABLET (FOR DETOX USE ONLY) PO ONE ×4 (15:40→23:00)
[2017-11-02] MEDS ORDERED: ACETAMINOPHEN 325 MG TABLET (FP) PO PRN (15:40)
[2017-11-02] MEDS ORDERED: MAGNESIUM CITRATE 300 ML BOTTLE PO PRN (15:40)
[2017-11-02] MEDS ORDERED: LOPERAMIDE HCL 2 MG CAPSULE PO PRN (15:40)
[2017-11-02] MEDS ORDERED: chlordiazePOXIDE HCL 25 MG CAPSULE PO ONE (15:40)
[2017-11-02] MEDS ORDERED: hydrOXYzine PAMOATE 50 MG CAPSULE (FP) PO PRN (15:40)
[2017-11-02] MEDS ORDERED: guaiFENesin/D-METHORPHAN HB 10 ML UNIT-DOSE CUPS PO PRN (15:40)
[2017-11-02] MEDS ORDERED: MAGNESIUM HYDROX 2400MG/30ML ORAL SUSPENSION 30 ML CUP PO PRN (15:40)
[2017-11-02] MEDS ORDERED: MENTHOL/PHENOL 1 EACH UD MM PRN (15:40)
--- NOTE | 2017-11-02 16:36 | PN ---
[facility] Progress Note Note: Patient placed on librium regimen, methadone discontinued due to negative opiates in urine screen.
[2017-11-02 21:34] LABS: URINE APPEARANCE CLEAR; URINE BILIRUBIN NEGATIVE (<2.0 mg/dL); URINE COLOR YELLOW; URINE GLUCOSE (UA) NEGATIVE (NEGATIVE); URINE KETONE NEGATIVE (NEGATIVE); URINE LEUK ESTERASE NEGATIVE (NEGATIVE); URINE NITRITE NEGATIVE (NEGATIVE); URINE PROTEIN NEGATIVE (NEGATIVE); URINE UROBILINOGEN NEGATIVE mg/dL (0.2-1.0)
[2017-11-02] MEDS: THIAMINE HCL 100 MG TABLET (FP) PO SCH (22:16)
[2017-11-02] MEDS: MELATONIN 5 MG TABLETS PO PRN (22:17)
[2017-11-02] MEDS: chlordiazePOXIDE HCL 25 MG CAPSULE PO SCH (22:17)
[2017-11-03] MEDS: chlordiazePOXIDE HCL 25 MG CAPSULE PO SCH ×4 (05:49→22:18)
[2017-11-03] MEDS ORDERED: METHADONE HCL 10 MG TABLET (FOR DETOX USE ONLY) PO SCH (10:00)
[2017-11-03] MEDS ORDERED: METHADONE HCL 10 MG TABLET (FOR DETOX USE ONLY) PO ONE (10:00)
[2017-11-03] MEDS: PRENATAL VITAMINS W/ FOLIC ACID TABLET (FP) PO SCH (10:16)
[2017-11-03 10:30] LABS: HEMATOCRIT 39.9 % (35.4-49); HEMOGLOBIN 12.8 GM/dL (11.7-16.9); MCH 29.4 pg (25.7-33.7); MCHC 32.2 g/dl (32.0-35.9); MEAN CELL VOLUME 91.2 fl (80-96); MEAN PLT VOLUME 9.1 fl (7.5-11.1); PLATELET COUNT 169 K/MM3 (134-434); RBC 4.37 M/mm3 (4.00-5.60); WHITE BLOOD COUNT 4.5 K/mm3 (4.0-10.0)
[2017-11-03 10:46] LABS: CHLORIDE 100 mmol/L (98-107); POTASSIUM 4.1 mmol/L (3.5-5.1); SODIUM 139 mmol/L (136-145)
[2017-11-03 10:54] LABS: ALBUMIN 3.6 g/dl (3.4-5.0); ALK PHOS 47 U/L (45-117); ANION GAP 8 MMOL/L (8-16); BILIRUBIN,TOTAL 0.3 mg/dL (0.2-1.0); BLOOD UREA NITROGEN 19 mg/dL (7-18); CALCIUM 8.9 mg/dL (8.5-10.1); CO2 31 mmol/L (21-32); GLUCOSE,RANDOM 98 mg/dL (74-106); SGOT/AST 32 U/L (15-37); SGPT/ALT 39 U/L (12-78)
[2017-11-03] MEDS: ONDANSETRON *ODT* 4 MG TABLET SL PRN (12:08)
--- NOTE | 2017-11-03 13:41 | PN ---
[facility] CIWA - CIWA Score Nausea/Vomitin Muscle Tremors: 4-Moderate,w/Arms Extend Anxiety: 4-Mod. Anxious/Guarded Agitation: 3 Paroxysmal Sweats: 3 Orientation: 0-Oriented Tacttile Disturbances: 0-None Auditory Disturbances: 0-None Visual Disturbances: 0-None Headache: 0-None Present CIWA-Ar Total Score: 17 [facility]HS COWS - Scale Resting Pulse: 0= [place] 80 or Below Sweatin= Chills/Flushing Restless Observation: 3= Extraneous Movement Pupil Size: 1= Pupils >than Normal Bone or Joint Aches: 2= Severe Diffuse Aches Runny Nose/ Eye Tearin= Runny Nose/Eyes GI Upset > 30mins: 2= Nausea/Diarrhea Tremor Observation of Outstretched Hands: 2= Slight Tremor Visible Yawning Observation: 1= 1-2x During Session Anxiety or Irritability: 2=Irritable/Anxious Goose Flesh Skin: 0=Smooth Skin COWS Score: 16 [facility] Progress Note (SOAP) Subjective: Vomited once this morning, tremor, nausea Objective: 11/03/17 13:40 Laboratory Tests 11/02/17 11/03/17 11/03/17 17:55 07:30 07:30 WBC 4.5 RBC 4.37 Hgb 12.8 Hct 39.9 MCV 91.2 MCH 29.4 MCHC 32.2 RDW 14.0 Plt Count 169 MPV 9.1 Sodium 139 Potassium 4.1 Chloride 100 Carbon Dioxide 31 D Anion Gap 8 BUN 19 H Creatinine 1.0 Creat Clearance w eGFR > 60 Random Glucose 98 Calcium 8.9 Total Bilirubin 0.3 AST 32 D ALT 39 Alkaline Phosphatase 47 Total Protein 7.0 Albumin 3.6 Urine Color Yellow Urine Appearance Clear Urine pH 7.0 Ur Specific [place] 1.025 Urine Protein Negative Urine Glucose (UA) Negative Urine Ketones Negative Urine Blood Negative Urine Nitrite Negative Urine Bilirubin Negative Urine Urobilinogen Negative Ur Leukocyte Esterase Negative RPR Titer 11/03/17 07:30 WBC RBC Hgb Hct MCV MCH MCHC RDW Plt Count MPV Sodium Potassium Chloride Carbon Dioxide Anion Gap BUN Creatinine Creat Clearance w eGFR Random Glucose Calcium Total Bilirubin AST ALT Alkaline Phosphatase Total Protein Albumin Urine Color Urine Appearance Urine pH Ur Specific [place] Urine Protein Urine Glucose (UA) Urine Ketones Urine Blood Urine Nitrite Urine Bilirubin Urine Urobilinogen Ur Leukocyte Esterase RPR Titer Nonreactive Labs reviewed Assessment: 11/03/17 13:40 Withdrawal symptoms Plan: Continue detox Encouraged PO water hydration
--- NOTE | 2017-11-03 21:59 | EKG ---
Test Reason : Blood Pressure : / mmHG Vent. Rate : 067 BPM Atrial Rate : 067 BPM P-R Int : 190 ms QRS Dur : 082 ms QT Int : 388 ms P-R-T Axes : 080 077 063 degrees QTc Int : 409 ms NORMAL SINUS RHYTHM BIATRIAL ENLARGEMENT LEFT VENTRICULAR HYPERTROPHY ST ELEVATION, CONSIDER EARLY REPOLARIZATION ABNORMAL ECG WHEN COMPARED WITH ECG OF 22-JUL-2017 21:37, NO SIGNIFICANT CHANGE WAS FOUND Confirmed by SANG GLOVER MD ([id number]) on 11/03/2017 9:59:16 PM Referred By: Confirmed By:SANG GLOVER MD
[2017-11-03] MEDS: MELATONIN 5 MG TABLETS PO PRN (22:18)
[2017-11-03] MEDS: THIAMINE HCL 100 MG TABLET (FP) PO SCH (22:18)
[2017-11-04] MEDS: chlordiazePOXIDE HCL 25 MG CAPSULE PO SCH ×3 (05:13→18:27)
[2017-11-04] MEDS ORDERED: METHADONE HCL 5 MG TABLET (FOR DETOX USE ONLY) PO ONE (10:00)
[2017-11-04] MEDS ORDERED: METHADONE HCL 5 MG TABLET (FOR DETOX USE ONLY) PO SCH (10:00)
[2017-11-04] MEDS: ONDANSETRON *ODT* 4 MG TABLET SL PRN (10:04)
[2017-11-04] MEDS: PRENATAL VITAMINS W/ FOLIC ACID TABLET (FP) PO SCH (10:04)
--- NOTE | 2017-11-04 13:22 | PN ---
[facility] CIWA - CIWA Score Nausea/Vomitin Muscle Tremors: 3 Anxiety: 4-Mod. Anxious/Guarded Agitation: 3 Paroxysmal Sweats: 3 Orientation: 0-Oriented Tacttile Disturbances: 0-None Auditory Disturbances: 0-None Visual Disturbances: 0-None Headache: 0-None Present CIWA-Ar Total Score: 18 BHS COWS - Scale Resting Pulse: 0= TN 80 or Below Sweatin=Flushed/Facial Moisture Restless Observation: 1= Difficult to Sit Still Pupil Size: 0= Normal to Room Light Bone or Joint Aches: 1= Mild Discomfort Runny Nose/ Eye Tearin= Runny Nose/Eyes GI Upset > 30mins: 3= Vomiting/Diarrhea Tremor Observation of Outstretched Hands: 2= Slight Tremor Visible Yawning Observation: 1= 1-2x During Session Anxiety or Irritability: 2=Irritable/Anxious Goose Flesh Skin: 0=Smooth Skin COWS Score: 14 S Progress Note (SOAP) Subjective: Vomiting Diarrhea Sweats Nausea Objective: 11/04/17 13:19 A & O x 3 No resp nor acute distress Lying in bed, interactive Vital Signs 11/04/17 11/04/17 06:02 09:59 Temperature 97.2 F L 97.4 F L Pulse Rate 68 63 Respiratory 18 18 Rate Blood Pressure 96/63 99/70 Laboratory Last Values WBC 4.5 K/mm3 (4.0-10.0) 11/03/17 07:30 RBC 4.37 M/mm3 (4.00-5.60) 11/03/17 07:30 Hgb 12.8 GM/dL (11.7-16.9) 11/03/17 07:30 Hct 39.9 % (35.4-49) 11/03/17 07:30 MCV 91.2 fl (80-96) 11/03/17 07:30 MCH 29.4 pg (25.7-33.7) 11/03/17 07:30 MCHC 32.2 g/dl (32.0-35.9) 11/03/17 07:30 RDW 14.0 % (11.9-15.9) 11/03/17 07:30 Plt Count 169 K/MM3 (134-434) 11/03/17 07:30 MPV 9.1 fl (7.5-11.1) 11/03/17 07:30 Sodium 139 mmol/L (136-145) 11/03/17 07:30 Potassium 4.1 mmol/L (3.5-5.1) 11/03/17 07:30 Chloride 100 mmol/L (98-107) 11/03/17 07:30 Carbon Dioxide 31 mmol/L (21-32) D 11/03/17 07:30 Anion Gap 8 MMOL/L (8-16) 11/03/17 07:30 BUN 19 mg/dL (7-18) H 11/03/17 07:30 Creatinine 1.0 mg/dL (0.7-1.3) 11/03/17 07:30 Creat Clearance w eGFR > 60 (>60) 11/03/17 07:30 Random Glucose 98 mg/dL (74-106) 11/03/17 07:30 Calcium 8.9 mg/dL (8.5-10.1) 11/03/17 07:30 Total Bilirubin 0.3 mg/dL (0.2-1.0) 11/03/17 07:30 AST 32 U/L (15-37) D 11/03/17 07:30 ALT 39 U/L (12-78) 11/03/17 07:30 Alkaline Phosphatase 47 U/L (45-117) 11/03/17 07:30 Total Protein 7.0 g/dl (6.4-8.2) 11/03/17 07:30 Albumin 3.6 g/dl (3.4-5.0) 11/03/17 07:30 Urine Color Yellow 11/02/17 17:55 Urine Appearance Clear 11/02/17 17:55 Urine pH 7.0 (5.0-8.0) 11/02/17 17:55 Ur Specific [place] 1.025 (1.001-1.035) 11/02/17 17:55 Urine Protein Negative (NEGATIVE) 11/02/17 17:55 Urine Glucose (UA) Negative (NEGATIVE) 11/02/17 17:55 Urine Ketones Negative (NEGATIVE) 11/02/17 17:55 Urine Blood Negative (NEGATIVE) 11/02/17 17:55 Urine Nitrite Negative (NEGATIVE) 11/02/17 17:55 Urine Bilirubin Negative (<2.0 mg/dL) 11/02/17 17:55 Urine Urobilinogen Negative mg/dL (0.2-1.0) 11/02/17 17:55 Ur Leukocyte Esterase Negative (NEGATIVE) 11/02/17 17:55 RPR Titer Nonreactive (NONREACTIVE) 11/03/17 07:30 Assessment: 11/04/17 13:20 withdrawal sx Plan: Continue detox Immodium prn for diarrhea Zofran prn for N/V/D Continue increase hydration
[2017-11-04] MEDS: IBUPROFEN 400 MG TABLET (FP) PO PRN (22:10)
[2017-11-04] MEDS: chlordiazePOXIDE 5 MG CAPSULE PO SCH (22:10)
[2017-11-04] MEDS: MELATONIN 5 MG TABLETS PO PRN (22:11)
[2017-11-04] MEDS: THIAMINE HCL 100 MG TABLET (FP) PO SCH (22:11)
[2017-11-05] MEDS: chlordiazePOXIDE 5 MG CAPSULE PO SCH ×3 (06:00→17:40)
[2017-11-05] MEDS ORDERED: METHADONE HCL 5 MG TABLET (FOR DETOX USE ONLY) PO ONE (10:00)
[2017-11-05] MEDS: PRENATAL VITAMINS W/ FOLIC ACID TABLET (FP) PO SCH (10:07)
--- NOTE | 2017-11-05 13:42 | PN ---
BHS Progress Note (SOAP) Subjective: Tremors, Sweating, Constipation. Objective: PATIENT A & O X 2 (UNCERTAIN ABOUT CURRENT DAY / DATE). PATIENT OBSERVED AMBULATING ON UNIT. NO ACUTE DISTRESS. 11/05/17 13:37 Vital Signs Temperature 96.4 F L 11/05/17 13:09 Pulse Rate 78 11/05/17 13:09 Respiratory Rate 16 11/05/17 13:09 Blood Pressure 104/69 11/05/17 13:09 O2 Sat by Pulse Oximetry (%) Laboratory Tests 11/02/17 11/03/17 11/03/17 17:55 07:30 07:30 WBC 4.5 RBC 4.37 Hgb 12.8 Hct 39.9 MCV 91.2 MCH 29.4 MCHC 32.2 RDW 14.0 Plt Count 169 MPV 9.1 Sodium 139 Potassium 4.1 Chloride 100 Carbon Dioxide 31 D Anion Gap 8 BUN 19 H Creatinine 1.0 Creat Clearance w eGFR > 60 Random Glucose 98 Calcium 8.9 Total Bilirubin 0.3 AST 32 D ALT 39 Alkaline Phosphatase 47 Total Protein 7.0 Albumin 3.6 Urine Color Yellow Urine Appearance Clear Urine pH 7.0 Ur Specific [place] 1.025 Urine Protein Negative Urine Glucose (UA) Negative Urine Ketones Negative Urine Blood Negative Urine Nitrite Negative Urine Bilirubin Negative Urine Urobilinogen Negative Ur Leukocyte Esterase Negative RPR Titer 11/03/17 07:30 WBC RBC Hgb Hct MCV MCH MCHC RDW Plt Count MPV Sodium Potassium Chloride Carbon Dioxide Anion Gap BUN Creatinine Creat Clearance w eGFR Random Glucose Calcium Total Bilirubin AST ALT Alkaline Phosphatase Total Protein Albumin Urine Color Urine Appearance Urine pH Ur Specific [place] Urine Protein Urine Glucose (UA) Urine Ketones Urine Blood Urine Nitrite Urine Bilirubin Urine Urobilinogen Ur Leukocyte Esterase RPR Titer Nonreactive LABS NOTED. Assessment: 11/05/17 13:38 WITHDRAWAL SYMPTOMS. Plan: CONTINUE DETOX. INCREASE DAILY PO FLUID INTAKE. PRN MOM FOR CONSTIPATION. PATIENT REPORTS THAT THAT METHADONE CAUSES HIM SEVERE NAUSEA AND UPSET STOMACH. PATIENT REPORTS THAT DETOX FROM ALCOHOL WAS MORE OF A PRIORITY FOR HIM ON ADMISSION TO DETOX, ANYWAY AND THAT HE BELIEVES THAT HE WILL BE OKAY TO HAVE REMAINDER OF METHADONE DETOX REGIMEN D/C'D.
--- NOTE | 2017-11-05 18:07 | CONSULT ---
[facility] Psychiatric Consult - Data Date of interview: 11/05/17 Admission source: [facility] Identifying data: History of multiple admissions to [facility] for this 57 y/o AA male, now seeking detox treatment on 3 for alcohol,opioid and cocaine dependence.Patient is single without children,domiciled,unemployed and supported on Public Assistance. Substance Abuse History: Confirmed by patient in this interview.Smoking history : Never smoked. Have you smoked in the past 12 months: No. Hx Chewing Tobacco Use: No. - Substance & Tx. History. Hx Alcohol Use: Yes ([place]). Hx Substance Use: Yes. Substance Use Type: Alcohol, Opiates. Hx Substance Use Treatment: Yes. - Substances Abused. Alcohol. Route: Oral. Frequency: Daily. Amount used: 3 pints a day. Age of first use: 29. Date of Last Use: . Cocaine. Amount used: $100. Age of first use: 29. Date of Last Use: 11/01/17. Non-Rx Methadone. Route: Oral. Amount used: 50mg. Age of first use: 29. Date of Last Use: 11/01/17 Medical History: Hepatitis C. Psychiatric History: Patient denies history of psychiatric hospitalizations or OPD care.Mr Adams denies history of suicide attempts. Physical/Sexual Abuse/Trauma History: Patient denies. Additional Comment: Urine Drug Screen Results: VINEET-Cocaine, MTD-Methadone.Noted. Mental Status Exam - Mental Status Exam Alert and Oriented to: Time, Place, Person Cognitive Function: Good Patient Appearance: Well Groomed Mood: Withdrawn Affect: Mood Congruent Patient Behavior: Appropriate, Cooperative Speech Pattern: Clear, Appropriate Voice Loudness: Normal Thought Process: Goal Oriented Thought Disorder: Not Present Hallucinations: Denies Suicidal Ideation: Denies Homicidal Ideation: Denies Insight/Judgement: Poor Sleep: Well Appetite: Good Muscle strength/Tone: Normal Gait/Station: Normal Psychiatric Findings - Problem List ([place] 1, 2,3) (1) Opioid dependence with withdrawal Current Visit: Yes Status: Acute (2) Alcohol dependence with uncomplicated withdrawal Current Visit: Yes Status: Acute (3) Cocaine dependence Current Visit: Yes Status: Acute Qualifiers: Substance use status: uncomplicated Qualified Code(s): F14.20 - Cocaine dependence, uncomplicated (4) Substance induced mood disorder Current Visit: Yes Status: Acute - Initial Treatment Plan Initial Treatment Plan: Psychoeducation.Detoxification.Observation.
[2017-11-05 21:41] VITALS: TEMP 97.6
[2017-11-05] MEDS: THIAMINE HCL 100 MG TABLET (FP) PO SCH (22:04)
[2017-11-05] MEDS: chlordiazePOXIDE HCL 10 MG CAPSULE PO SCH (22:12)
[2017-11-05] MEDS: MELATONIN 5 MG TABLETS PO PRN (22:12)
[2017-11-05] MEDS: IBUPROFEN 400 MG TABLET (FP) PO PRN (22:12)
[2017-11-06] MEDS: chlordiazePOXIDE HCL 10 MG CAPSULE PO SCH (05:10)
[2017-11-06 06:21] VITALS: BP 101/57; PULSE 85
[2017-11-06] MEDS ORDERED: METHADONE HCL 10 MG TABLET (FOR DETOX USE ONLY) PO SCH (10:00)
[2017-11-06] MEDS ORDERED: METHADONE HCL 10 MG TABLET (FOR DETOX USE ONLY) PO ONE (10:00)
--- NOTE | 2017-11-06 12:13 | PN ---
S Progress Note (SOAP) Subjective: Patient reports poor appetite and mild fatigue, however, he reports that he feels well overall. Patient denies any other withdrawal symptoms at this time. Objective: PATIENT A & O X 3, OBSERVED AMBULATING ON UNIT. NO ACUTE DISTRESS. 11/06/17 12:11 Vital Signs Temperature 97.6 F 11/06/17 06:21 Pulse Rate 85 11/06/17 06:21 Respiratory Rate 18 11/06/17 06:21 Blood Pressure 101/57 11/06/17 06:21 O2 Sat by Pulse Oximetry (%) Laboratory Tests 11/02/17 11/03/17 11/03/17 17:55 07:30 07:30 WBC 4.5 RBC 4.37 Hgb 12.8 Hct 39.9 MCV 91.2 MCH 29.4 MCHC 32.2 RDW 14.0 Plt Count 169 MPV 9.1 Sodium 139 Potassium 4.1 Chloride 100 Carbon Dioxide 31 D Anion Gap 8 BUN 19 H Creatinine 1.0 Creat Clearance w eGFR > 60 Random Glucose 98 Calcium 8.9 Total Bilirubin 0.3 AST 32 D ALT 39 Alkaline Phosphatase 47 Total Protein 7.0 Albumin 3.6 Urine Color Yellow Urine Appearance Clear Urine pH 7.0 Ur Specific [place] 1.025 Urine Protein Negative Urine Glucose (UA) Negative Urine Ketones Negative Urine Blood Negative Urine Nitrite Negative Urine Bilirubin Negative Urine Urobilinogen Negative Ur Leukocyte Esterase Negative RPR Titer 11/03/17 07:30 WBC RBC Hgb Hct MCV MCH MCHC RDW Plt Count MPV Sodium Potassium Chloride Carbon Dioxide Anion Gap BUN Creatinine Creat Clearance w eGFR Random Glucose Calcium Total Bilirubin AST ALT Alkaline Phosphatase Total Protein Albumin Urine Color Urine Appearance Urine pH Ur Specific [place] Urine Protein Urine Glucose (UA) Urine Ketones Urine Blood Urine Nitrite Urine Bilirubin Urine Urobilinogen Ur Leukocyte Esterase RPR Titer Nonreactive LABS NOTED. Assessment: 11/06/17 12:11 COMPLETION OF DETOX REGIMEN. 11/06/17 12:13 Plan: PATIENT SCHEDULED FOR DISCHARGE FROM DETOX UNIT TODAY. PATIENT GOING ON TO [facility] FOR AFTERCARE.
--- NOTE | 2017-11-06 12:19 | DS ---
[facility] Detox Discharge Summary Admission Date: 11/02/17 Discharge Date: 11/06/17 - History Present History: Alcohol Dependence, Opioid Dependence, Sedative Dependence Additional Comments: PATIENT REPORTS THAT HE FEELS WELL OVERALL AT TIME OF DISCHARGE FROM DETOX UNIT. PATIENT GOING ON TO [facility] ([facility]) FOR AFTERCARE. PATIENT WAS DISCHARGED FROM DETOX UNIT TO BE TAKEN OVER TO REHAB UNIT IN STABLE MEDICAL CONDITION. Pertinent Past History: History of Hep C, G.E.R.D., Insomnia. - Physical Exam Results Vital Signs: Vital Signs Temperature 97.6 F 11/06/17 06:21 Pulse Rate 85 11/06/17 06:21 Respiratory Rate 18 11/06/17 06:21 Blood Pressure 101/57 11/06/17 06:21 O2 Sat by Pulse Oximetry (%) Pertinent Admission Physical Exam Findings: WITHDRAWAL SYMPTOMS. Laboratory Tests 11/02/17 11/03/17 11/03/17 17:55 07:30 07:30 WBC 4.5 RBC 4.37 Hgb 12.8 Hct 39.9 MCV 91.2 MCH 29.4 MCHC 32.2 RDW 14.0 Plt Count 169 MPV 9.1 Sodium 139 Potassium 4.1 Chloride 100 Carbon Dioxide 31 D Anion Gap 8 BUN 19 H Creatinine 1.0 Creat Clearance w eGFR > 60 Random Glucose 98 Calcium 8.9 Total Bilirubin 0.3 AST 32 D ALT 39 Alkaline Phosphatase 47 Total Protein 7.0 Albumin 3.6 Urine Color Yellow Urine Appearance Clear Urine pH 7.0 Ur Specific [place] 1.025 Urine Protein Negative Urine Glucose (UA) Negative Urine Ketones Negative Urine Blood Negative Urine Nitrite Negative Urine Bilirubin Negative Urine Urobilinogen Negative Ur Leukocyte Esterase Negative RPR Titer 11/03/17 07:30 WBC RBC Hgb Hct MCV MCH MCHC RDW Plt Count MPV Sodium Potassium Chloride Carbon Dioxide Anion Gap BUN Creatinine Creat Clearance w eGFR Random Glucose Calcium Total Bilirubin AST ALT Alkaline Phosphatase Total Protein Albumin Urine Color Urine Appearance Urine pH Ur Specific [place] Urine Protein Urine Glucose (UA) Urine Ketones Urine Blood Urine Nitrite Urine Bilirubin Urine Urobilinogen Ur Leukocyte Esterase RPR Titer Nonreactive LABS NOTED. - Treatment Hospital Course: Detox Protocol Followed, Detoxed Safely, Responded well, Discharged Condition Good, Rehab Referral Accepted Patient has Accepted a Rehab Referral to: [facility] ([facility].) . - Medication Discharge Medications: Ambulatory Orders Omeprazole Magnesium [Prilosec Otc] 20 mg PO DAILY 11/06/17 - Diagnosis (1) Alcohol dependence with uncomplicated withdrawal Status: Acute (2) Insomnia Status: Acute Qualifiers: Insomnia type: drug-induced Qualified Code(s): F19.982 - Other psychoactive substance use, unspecified with psychoactive substance-induced sleep disorder (3) Sedative hypnotic or anxiolytic dependence Status: Acute (4) Heroin dependence Status: Acute (5) GERD (gastroesophageal reflux disease) Status: Chronic Qualifiers: Esophagitis presence: without esophagitis Qualified Code(s): K21.9 - Gastro -esophageal reflux disease without esophagitis (6) Hepatitis C Status: Chronic Qualifiers: Viral hepatitis chronicity: chronic Hepatic coma status: without hepatic coma Qualified Code(s): B18.2 - Chronic viral hepatitis C - AMA Did Patient Leave Against Medical Advice: No
[2017-11-07] MEDS ORDERED: METHADONE HCL 5 MG TABLET (FOR DETOX USE ONLY) PO SCH (06:00)
[2017-11-07] MEDS ORDERED: METHADONE HCL 5 MG TABLET (FOR DETOX USE ONLY) PO ONE (06:00)
== END 2017-11-06 10:22 | disposition other institution (70) | DRG 773 ==
LOC: YASAS 13:08 → Y3N 16:44
PROVIDERS: ADMIT Surgery; ATTEND Surgery
PROC: HZ2ZZZZ Detoxification Services for Substance Abuse Treatment (ICD-10-PCS; principal; 2017-11-05)
DX: F11.23 Opioid dependence with withdrawal (principal); F10.230 Alcohol dependence with withdrawal, uncomplicated; F13.230 Sedative, hypnotic or anxiolytic dependence with withdrawal, uncomplicated; F14.20 Cocaine dependence, uncomplicated; F19.282 Other psychoactive substance dependence with psychoactive substance-induced sleep disorder; K21.9 Gastro-esophageal reflux disease without esophagitis; B18.2 Chronic viral hepatitis C; Z88.0 Allergy status to penicillin; Z91.013 Allergy to seafood
CPT/HCPCS: 36415; 80053; 81003; 85027; 86593; 93005; 93010; Q0162

== ENCOUNTER 2017-12-31 15:12 | Inpatient (IN) | payer OTHER ==
[2017-12-31 18:09] VITALS: BMI 21.5
--- NOTE | 2017-12-31 19:39 | HP ---
CIWA Score - CIWA Score Nausea/Vomitin Muscle Tremors: 2 Anxiety: 3 Agitation: 3 Paroxysmal Sweats: 2 Orientation: 0-Oriented Tacttile Disturbances: 2-Mild Itch/Numbness/Burn Auditory Disturbances: 0-None Visual Disturbances: 0-None Headache: 2-Mild CIWA-Ar Total Score: 17 Admission ROS S - HPI Chief Complaint: " I don't want to loose my job" alcohol withdrawal symptoms Allergies/Adverse Reactions: Allergies Allergy/AdvReac Type Severity Reaction Status Date / Time Penicillins Allergy Severe Swelling Verified 11/06/17 10:57 shellfish derived Allergy Severe Swelling Verified 11/06/17 10:57 History of Present Illness: 57 yo male with hx of alcohol, marijuana, cocaine, and klonopin dependence is here seeking detox. This is one of multiple admissions. Last treatment detox and rehab [facility] 11/02/17 - 11/18/17. Utox positive for bzo, toma, MTD, thc, denies opioid use or mtd use.. PMHX: Hep C, GERD, weight loss, depression. Denies suicidal / homicidal ideation or hx of suicide attempt. Denies hx of seizures. Reports frequent ETOH blackouts with last episode a month ago. He reports sobriety for 19 years during a period of incarceration. Exam Limitations: No Limitations - Ebola screening Have you traveled outside of the country in the last 21 days: No Have you had contact with anyone from an Ebola affected area: No Have you been sick,other than usual withdrawal symptoms: No Do you have a fever: No - Review of Systems Constitutional: Chills, Loss of Appetite (25 lbs), Changes in sleep, Unintentional Wgt. Loss EENT: reports: No Symptoms Reported Respiratory: reports: No Symptoms reported Cardiac: reports: No Symptoms Reported GI: reports: Nausea, Poor Appetite, Poor Fluid Intake : reports: No Symptoms Reported Musculoskeletal: reports: Back Pain Integumentary: reports: Other (athletes foot) Neuro: reports: Headache Endocrine: reports: Increased Thirst Hematology: reports: No Symptoms Reported Psychiatric: reports: Orientated x3, Depressed Other Systems: Reviewed and Negative Patient History - Patient Medical History Hx Anemia: No Hx Asthma: No Hx Chronic Obstructive Pulmonary Disease (COPD): No Hx Cancer: No Hx Cardiac Disorders: No Hx Congestive Heart Failure: No Hx Hypertension: No Hx Hypercholesterolemia: No Hx Pacemaker: No HX Cerebrovascular Accident: No Hx Seizures: No Hx Dementia: No Hx Diabetes: No Hx Gastrointestinal Disorders: Yes (GERD) Hx Liver Disease: Yes (hep c + no treatment) Hx Genitourinary Disorders: No Hx Sexually Transmitted Disorders: No Hx Renal Disease (ESRD): No Hx Thyroid Disease: No Hx Human Immunodeficiency Virus (HIV): No Hx Hepatitis C: Yes (no treatment) Hx Depression: No Hx Suicide Attempt: No Hx Bipolar Disorder: No Hx Schizophrenia: No - Patient Surgical History Past Surgical History: No Hx Neurologic Surgery: No Hx Cataract Extraction: No Hx Cardiac Surgery: No Hx Lung Surgery: No Hx Breast Surgery: No Hx Breast Biopsy: No Hx Abdominal Surgery: No Hx Appendectomy: No Hx Cholecystectomy: No Hx Genitourinary Surgery: No Hx Section: No Hx Orthopedic Surgery: No Hx Hysterectomy: No Anesthesia Reaction: No - PPD History Previous Implant?: No Documented Results: Negative w/proof Date: 01/03/17 Results: 0 mm PPD to be Administered?: Yes - Smoking Cessation Smoking history: Never smoked Have you smoked in the past 12 months: No Hx Chewing Tobacco Use: No Initiated information on smoking cessation: No - Substance & Tx. History Hx Alcohol Use: Yes Hx Substance Use: Yes Substance Use Type: Alcohol, Cocaine, Tranquilizers Hx Substance Use Treatment: Yes ([facility] 11/02/17 - 11/18/17 detox and rehab ) - Substances Abused klonopin Route: Oral Frequency: Daily Amount used: 2 mg Age of first use: 55 Date of Last Use: 12/29/17 Alcohol Route: Oral Frequency: Daily Amount used: 2 pints liquor + six pack of beer Age of first use: 27 Date of Last Use: 12/31/17 crack Route: Smoking Frequency: 3-6 times per week Amount used: $50 Age of first use: 27 Date of Last Use: 12/30/17 Family Disease History - Family Disease History Family Disease History: Heart Disease: Father ([place],ALCOHOL), Other: Father Admission Physical Exam S - Vital Signs Vital Signs: Vital Signs - 24 hr 12/31/17 18:06 Temperature 97.8 F Pulse Rate 76 Respiratory 18 Rate Blood Pressure 125/82 - Physical General Appearance: Yes: Disheveled, Mild Distress, Thin, Sweating, Anxious HEENTM: Yes: EOMI, Hearing grossly Normal, Normal ENT Inspection, Normocephalic , Normal Voice, FRED, Pharynx Normal, Tm's normal Respiratory: Yes: Chest Non-Tender, Lungs Clear, Normal Breath Sounds, No Respiratory Distress, No Accessory Muscle Use Neck: Yes: Within Normal Limits Breast: Yes: Breast Exam Deferred Cardiology: Yes: Regular Rhythm, Regular Rate Abdominal: Yes: Normal Bowel Sounds, Non Tender, Flat, Soft Genitourinary: Yes: Within Normal Limits Back: Yes: Normal Inspection Musculoskeletal: Yes: full range of Motion, Gait Steady, Pelvis Stable Extremities: Yes: Normal Capillary Refill, Normal Inspection, Normal Range of Motion 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: glove former II-XII NML intact, Fully Oriented, Alert, Motor Strength 5/5, Normal Response Integumentary: Yes: Normal Color, Warm, Diaphoresis Lymphatic: Yes: Within Normal Limits - Diagnostic (1) Alcohol dependence with uncomplicated withdrawal Current Visit: Yes Status: Acute (2) Cocaine dependence Current Visit: Yes Status: Acute Qualifiers: Substance use status: uncomplicated Qualified Code(s): F14.20 - Cocaine dependence, uncomplicated (3) Sedative hypnotic or anxiolytic dependence Current Visit: Yes Status: Acute (4) Weight decreased Current Visit: Yes Status: Acute (5) GERD (gastroesophageal reflux disease) Current Visit: Yes Status: Chronic Qualifiers: Esophagitis presence: without esophagitis Qualified Code(s): K21.9 - Gastro -esophageal reflux disease without esophagitis (6) Hepatitis C Current Visit: Yes Status: Chronic Qualifiers: Viral hepatitis chronicity: chronic Hepatic coma status: without hepatic coma Qualified Code(s): B18.2 - Chronic viral hepatitis C Cleared for Admission [facility] - Detox or Rehab [facility] Level of Care: Medically Managed Detox Regimen/Protocol: Librium [facility] Breath Alcohol Content Breath Alcohol Content: 0 Urine Drug Screen - Results Drug Screen Negative: No Urine Drug Screen Results: THC-Marijuana, TOMA-Cocaine, BZO-Benzodiazepines, MTD- Methadone
[2017-12-31] MEDS ORDERED: LOPERAMIDE HCL 2 MG CAPSULE PO PRN (19:44)
[2017-12-31] MEDS ORDERED: MAGNESIUM CITRATE 300 ML BOTTLE PO PRN (19:44)
[2017-12-31] MEDS ORDERED: chlordiazePOXIDE HCL 25 MG CAPSULE PO PRN (19:44)
[2017-12-31] MEDS ORDERED: MAG HYDROX/AL HYDROX/SIMETH 30 ML UNIT-DOSE CUP PO PRN (19:44)
[2017-12-31] MEDS ORDERED: P-EPHED 60MG/TRIPROLIDI 2.5MG TABLET PO PRN (19:44)
[2017-12-31] MEDS ORDERED: IBUPROFEN 400 MG TABLET (FP) PO PRN (19:44)
[2017-12-31] MEDS ORDERED: guaiFENesin/D-METHORPHAN HB 10 ML UNIT-DOSE CUPS PO PRN (19:44)
[2017-12-31] MEDS ORDERED: ACETAMINOPHEN 325 MG TABLET (FP) PO PRN (19:44)
[2017-12-31] MEDS ORDERED: MENTHOL/PHENOL 1 EACH UD MM PRN (19:44)
[2017-12-31] MEDS ORDERED: MAGNESIUM HYDROX 2400MG/30ML ORAL SUSPENSION 30 ML CUP PO PRN (19:44)
[2017-12-31] MEDS ORDERED: MELATONIN 5 MG TABLETS PO PRN (22:00)
[2017-12-31] MEDS: chlordiazePOXIDE HCL 25 MG CAPSULE PO SCH (22:21)
[2017-12-31] MEDS: THIAMINE HCL 100 MG TABLET (FP) PO SCH (22:21)
[2017-12-31] MEDS: TOLNAFTATE 1% CREAM 15 GM TUBE TP SCH (22:55)
[2018-01-01 00:36] LABS: URINE APPEARANCE CLEAR; URINE BILIRUBIN NEGATIVE (<2.0 mg/dL); URINE COLOR YELLOW; URINE GLUCOSE (UA) NEGATIVE (NEGATIVE); URINE KETONE TRACE (NEGATIVE); URINE LEUK ESTERASE NEGATIVE (NEGATIVE); URINE NITRITE NEGATIVE (NEGATIVE); URINE PROTEIN NEGATIVE (NEGATIVE); URINE UROBILINOGEN NEGATIVE mg/dL (0.2-1.0)
[2018-01-01] MEDS: chlordiazePOXIDE HCL 25 MG CAPSULE PO SCH ×4 (06:00→22:21)
--- NOTE | 2018-01-01 08:13 | CONSULT ---
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 This is one of multiple detox admissions. Substance Abuse History: Smoking history: Never smoked. Have you smoked in the past 12 months: No. Hx Chewing Tobacco Use: No. Initiated information on smoking cessation: No. - Substance & Tx. History. Hx Alcohol Use: Yes. Hx Substance Use: Yes. Substance Use Type: Alcohol, Cocaine, Tranquilizers. Hx Substance Use Treatment: Yes ([facility] 11/02/17 - 11/18/17 detox and rehab ). - Substances Abused. klonopin. Route: Oral. Frequency: Daily. Amount used: 2 mg. Age of first use: 55. Date of Last Use: 12/29/17. Alcohol. Route: Oral. Frequency: Daily. Amount used: 2 pints liquor + six pack of beer. Age of first use: 27. Date of Last Use: 12/31/17. crack. Route: Smoking. Frequency: 3-6 times per week. Amount used: $50. Age of first use: 27. Date of Last Use: 12/30/17 Medical History: Weight loss history, GERD, HepC+ Psychiatric History: Patient reports no psychiatric hospitalization history, no suicidal, homicidal history, reports anxiety and depression, taking prior to admission: Seroquel 50mg po qhs for insomnia. Patient reports sobriety for 19 years during a period of incarceratio Physical/Sexual Abuse/Trauma History: Denies Additional Comment: Seroquel 50mg po,qhs Mental Status Exam - Mental Status Exam Alert and Oriented to: Person Cognitive Function: Fair Patient Appearance: Unkempt Mood: Apprehensive Affect: Mood Congruent Patient Behavior: Cooperative Speech Pattern: Appropriate Voice Loudness: Mildly Soft/Quiet Thought Process: Circumstantial Thought Disorder: Being Controlled Hallucinations: Denies Suicidal Ideation: Denies Homicidal Ideation: Denies Insight/Judgement: Fair Sleep: Difficulty falling asleep Appetite: Weight loss Muscle strength/Tone: Mild Hypotonicity Gait/Station: Shuffling Additional Comments: Seroquel 50mg po,qhs Psychiatric Findings - Problem List ([place] 1, 2,3) (1) Alcohol dependence with uncomplicated withdrawal Current Visit: Yes Status: Acute (2) Cocaine dependence Current Visit: Yes Status: Acute Qualifiers: Substance use status: uncomplicated Qualified Code(s): F14.20 - Cocaine dependence, uncomplicated (3) Sedative hypnotic or anxiolytic dependence Current Visit: Yes Status: Acute (4) Weight decreased Current Visit: Yes Status: Acute (5) GERD (gastroesophageal reflux disease) Current Visit: Yes Status: Chronic Qualifiers: Esophagitis presence: without esophagitis Qualified Code(s): K21.9 - Gastro -esophageal reflux disease without esophagitis (6) Hepatitis C Current Visit: Yes Status: Chronic Qualifiers: Viral hepatitis chronicity: chronic Hepatic coma status: without hepatic coma Qualified Code(s): B18.2 - Chronic viral hepatitis C (7) Alcohol dependence Current Visit: No Status: Acute (8) Alcohol-induced mood disorder Current Visit: No Status: Acute (9) Alcohol-induced sleep disorder Current Visit: No Status: Acute (10) Drug-induced mood disorder Current Visit: No Status: Acute (11) Heroin dependence Current Visit: No Status: Acute (12) [place] dependence Current Visit: No Status: Acute (13) Opioid dependence with withdrawal Current Visit: No Status: Acute - Initial Treatment Plan Initial Treatment Plan: Seroquel 50mg po qhs
[2018-01-01] MEDS: TOLNAFTATE 1% CREAM 15 GM TUBE TP SCH ×2 (10:43→22:21)
[2018-01-01] MEDS: PRENATAL VITAMINS W/ FOLIC ACID TABLET (FP) PO SCH (10:43)
--- NOTE | 2018-01-01 11:18 | PN ---
S CIWA - CIWA Score Nausea/Vomitin Muscle Tremors: 2 Anxiety: 2 Agitation: 1-Slight > Activity Paroxysmal Sweats: 2 Orientation: 0-Oriented Tacttile Disturbances: 2-Mild Itch/Numbness/Burn Auditory Disturbances: 0-None Visual Disturbances: 0-None Headache: 2-Mild CIWA-Ar Total Score: 13 BHS Progress Note (SOAP) Subjective: interrupted sleep, sweats, headache Objective: 01/01/18 11:16 Vital Signs Temperature 97.9 F 01/01/18 09:24 Pulse Rate 66 01/01/18 09:24 Respiratory Rate 18 01/01/18 09:24 Blood Pressure 113/78 01/01/18 09:24 O2 Sat by Pulse Oximetry (%) Laboratory Tests 12/31/17 23:06 Urine Color Yellow Urine Appearance Clear Urine pH 6.0 Ur Specific [place] 1.019 Urine Protein Negative Urine Glucose (UA) Negative Urine Ketones Trace H Urine Blood Negative Urine Nitrite Negative Urine Bilirubin Negative Urine Urobilinogen Negative Ur Leukocyte Esterase Negative pending labs pt aox3 in nad lying in bed Assessment: 01/01/18 11:17 withdrawal sx's headache Plan: cont detox increase fluids motrin prn f/up pending labs
--- NOTE | 2018-01-01 11:28 | EKG ---
Test Reason : Blood Pressure : / mmHG Vent. Rate : 064 BPM Atrial Rate : 064 BPM P-R Int : 214 ms QRS Dur : 080 ms QT Int : 394 ms P-R-T Axes : 081 076 057 degrees QTc Int : 406 ms SINUS RHYTHM WITH 1ST DEGREE A-V BLOCK OTHERWISE NORMAL ECG WHEN COMPARED WITH ECG OF 02-NOV-2017 16:50, NO SIGNIFICANT CHANGE WAS FOUND Confirmed by ANNEMARIE MARIA, DAYSI ([id number]) on 01/01/2018 11:28:41 AM Referred By: Confirmed By:DAYSI SHARPE MD
[2018-01-01 14:23] LABS: HEMATOCRIT 38.2 % (35.4-49); HEMOGLOBIN 12.2 GM/dL (11.7-16.9); MCHC 31.9 g/dl (32.0-35.9); MEAN CELL VOLUME 90.9 fl (80-96); MEAN PLT VOLUME 9.3 fl (7.5-11.1); PLATELET COUNT 157 K/MM3 (134-434); RDW 14.1 % (11.9-15.9); WHITE BLOOD COUNT 4.3 K/mm3 (4.0-10.0)
[2018-01-01 14:43] LABS: ALBUMIN 3.4 g/dl (3.4-5.0); ALK PHOS 51 U/L (45-117); ANION GAP 7 MMOL/L (8-16); BILIRUBIN,TOTAL 0.4 mg/dL (0.2-1); BLOOD UREA NITROGEN 16 mg/dL (7-18); CALCIUM 8.9 mg/dL (8.5-10.1); CHLORIDE 106 mmol/L (98-107); CO2 28 mmol/L (21-32); CREATININE 1.1 mg/dL (0.55-1.3); GLUCOSE,RANDOM 92 mg/dL (74-106); POTASSIUM 3.8 mmol/L (3.5-5.1); SGOT/AST 26 U/L (15-37); SGPT/ALT 51 U/L (13-61); SODIUM 140 mmol/L (136-145); TOT PROT 6.7 g/dl (6.4-8.2)
[2018-01-01] MEDS: QUEtiapine FUMARATE 50 MG TABLET PO SCH (22:21)
[2018-01-01] MEDS: THIAMINE HCL 100 MG TABLET (FP) PO SCH (22:21)
[2018-01-02] MEDS: chlordiazePOXIDE HCL 25 MG CAPSULE PO SCH ×3 (05:52→17:26)
[2018-01-02] MEDS: PRENATAL VITAMINS W/ FOLIC ACID TABLET (FP) PO SCH (10:25)
[2018-01-02] MEDS: TOLNAFTATE 1% CREAM 15 GM TUBE TP SCH ×2 (10:25→22:10)
--- NOTE | 2018-01-02 11:00 | PN ---
[facility] CIWA - CIWA Score Nausea/Vomitin-No Nausea/No Vomiting Muscle Tremors: 3 Anxiety: 3 Agitation: 2 Paroxysmal Sweats: 1-Minimal Palms Moist Orientation: 0-Oriented Tacttile Disturbances: 1-Very Mild Itch/Numbness Auditory Disturbances: 0-None Visual Disturbances: 0-None Headache: 1-Very Mild CIWA-Ar Total Score: 11 S Progress Note (SOAP) Subjective: sweat tremor restlessness irritable anxiety Objective: 01/02/18 10:59 Vital Signs Temperature 97.9 F 01/02/18 09:38 Pulse Rate 65 01/02/18 09:38 Respiratory Rate 18 01/02/18 09:38 Blood Pressure 89/51 L 01/02/18 09:38 O2 Sat by Pulse Oximetry (%) Laboratory Last Values WBC 4.3 K/mm3 (4.0-10.0) 01/01/18 07:00 RBC 4.20 M/mm3 (4.00-5.60) 01/01/18 07:00 Hgb 12.2 GM/dL (11.7-16.9) 01/01/18 07:00 Hct 38.2 % (35.4-49) 01/01/18 07:00 MCV 90.9 fl (80-96) 01/01/18 07:00 MCH 29.0 pg (25.7-33.7) 01/01/18 07:00 MCHC 31.9 g/dl (32.0-35.9) L 01/01/18 07:00 RDW 14.1 % (11.9-15.9) 01/01/18 07:00 Plt Count 157 K/MM3 (134-434) 01/01/18 07:00 MPV 9.3 fl (7.5-11.1) 01/01/18 07:00 Sodium 140 mmol/L (136-145) 01/01/18 07:00 Potassium 3.8 mmol/L (3.5-5.1) 01/01/18 07:00 Chloride 106 mmol/L (98-107) 01/01/18 07:00 Carbon Dioxide 28 mmol/L (21-32) 01/01/18 07:00 Anion Gap 7 MMOL/L (8-16) L 01/01/18 07:00 BUN 16 mg/dL (7-18) 01/01/18 07:00 Creatinine 1.1 mg/dL (0.55-1.3) 01/01/18 07:00 Creat Clearance w eGFR > 60 (>60) 01/01/18 07:00 Random Glucose 92 mg/dL (74-106) 01/01/18 07:00 Calcium 8.9 mg/dL (8.5-10.1) 01/01/18 07:00 Total Bilirubin 0.4 mg/dL (0.2-1) 01/01/18 07:00 AST 26 U/L (15-37) 01/01/18 07:00 ALT 51 U/L (13-61) 01/01/18 07:00 Alkaline Phosphatase 51 U/L (45-117) 01/01/18 07:00 Total Protein 6.7 g/dl (6.4-8.2) 01/01/18 07:00 Albumin 3.4 g/dl (3.4-5.0) 01/01/18 07:00 Urine Color Yellow 12/31/17 23:06 Urine Appearance Clear 12/31/17 23:06 Urine pH 6.0 (5.0-8.0) 12/31/17 23:06 Ur Specific [place] 1.019 (1.010-1.035) 12/31/17 23:06 Urine Protein Negative (NEGATIVE) 12/31/17 23:06 Urine Glucose (UA) Negative (NEGATIVE) 12/31/17 23:06 Urine Ketones Trace (NEGATIVE) H 12/31/17 23:06 Urine Blood Negative (NEGATIVE) 12/31/17 23:06 Urine Nitrite Negative (NEGATIVE) 12/31/17 23:06 Urine Bilirubin Negative (<2.0 mg/dL) 12/31/17 23:06 Urine Urobilinogen Negative mg/dL (0.2-1.0) 12/31/17 23:06 Ur Leukocyte Esterase Negative (NEGATIVE) 12/31/17 23:06 RPR Titer Nonreactive (NONREACTIVE) 01/01/18 07:00 lab noted Assessment: 01/02/18 11:00 withdrawal sx Plan: continue detox
[2018-01-02] MEDS: chlordiazePOXIDE 5 MG CAPSULE PO SCH (22:09)
[2018-01-02] MEDS: THIAMINE HCL 100 MG TABLET (FP) PO SCH (22:09)
[2018-01-02] MEDS: QUEtiapine FUMARATE 50 MG TABLET PO SCH (22:09)
[2018-01-03] MEDS: chlordiazePOXIDE 5 MG CAPSULE PO SCH ×3 (05:40→18:14)
[2018-01-03] MEDS: PRENATAL VITAMINS W/ FOLIC ACID TABLET (FP) PO SCH (10:37)
[2018-01-03] MEDS: TOLNAFTATE 1% CREAM 15 GM TUBE TP SCH ×2 (10:38→22:35)
--- NOTE | 2018-01-03 12:40 | PN ---
[facility] Progress Note Note: PATIENT IRRITABLE AND COMPLAINED THAT HE WAS WOKEN UP. Vital Signs Temperature 96.2 F L 01/03/18 09:12 Pulse Rate 71 01/03/18 09:12 Respiratory Rate 18 01/03/18 09:12 Blood Pressure 92/56 L 01/03/18 09:12 O2 Sat by Pulse Oximetry (%) Laboratory Tests 12/31/17 01/01/18 01/01/18 23:06 07:00 07:00 WBC 4.3 RBC 4.20 Hgb 12.2 Hct 38.2 MCV 90.9 MCH 29.0 MCHC 31.9 L RDW 14.1 Plt Count 157 MPV 9.3 Sodium 140 Potassium 3.8 Chloride 106 Carbon Dioxide 28 Anion Gap 7 L BUN 16 Creatinine 1.1 Creat Clearance w eGFR > 60 Random Glucose 92 Calcium 8.9 Total Bilirubin 0.4 AST 26 ALT 51 Alkaline Phosphatase 51 Total Protein 6.7 Albumin 3.4 Urine Color Yellow Urine Appearance Clear Urine pH 6.0 Ur Specific [place] 1.019 Urine Protein Negative Urine Glucose (UA) Negative Urine Ketones Trace H Urine Blood Negative Urine Nitrite Negative Urine Bilirubin Negative Urine Urobilinogen Negative Ur Leukocyte Esterase Negative RPR Titer 01/01/18 07:00 WBC RBC Hgb Hct MCV MCH MCHC RDW Plt Count MPV Sodium Potassium Chloride Carbon Dioxide Anion Gap BUN Creatinine Creat Clearance w eGFR Random Glucose Calcium Total Bilirubin AST ALT Alkaline Phosphatase Total Protein Albumin Urine Color Urine Appearance Urine pH Ur Specific [place] Urine Protein Urine Glucose (UA) Urine Ketones Urine Blood Urine Nitrite Urine Bilirubin Urine Urobilinogen Ur Leukocyte Esterase RPR Titer Nonreactive SKIN WARM AND DRY ALERT AND ORIENTED X 3 IRRITABLE AND CURSING EXT FULL ROM, NO EDEMA A/P WITHDRAWAL SX CONTINUE DETOX ENCOURAGE ORAL FLUIDS CONTINUE TO MONITOR
[2018-01-03] MEDS: THIAMINE HCL 100 MG TABLET (FP) PO SCH (22:35)
[2018-01-03] MEDS: chlordiazePOXIDE HCL 10 MG CAPSULE PO SCH (22:35)
[2018-01-03] MEDS: QUEtiapine FUMARATE 50 MG TABLET PO SCH (22:35)
[2018-01-04] MEDS: chlordiazePOXIDE HCL 10 MG CAPSULE PO SCH (06:34)
[2018-01-04 07:08] VITALS: BP 112/57; PULSE 68; TEMP 97.3
== END 2018-01-04 06:55 | disposition home or self-care (01) | DRG 773 ==
LOC: YASAS 15:12 → Y6N 20:28
PROC: HZ2ZZZZ Detoxification Services for Substance Abuse Treatment (ICD-10-PCS; principal; 2017-12-31)
DX: F11.23 Opioid dependence with withdrawal (principal); F10.230 Alcohol dependence with withdrawal, uncomplicated; F13.20 Sedative, hypnotic or anxiolytic dependence, uncomplicated; F14.20 Cocaine dependence, uncomplicated; F12.20 Cannabis dependence, uncomplicated; F10.24 Alcohol dependence with alcohol-induced mood disorder; F10.282 Alcohol dependence with alcohol-induced sleep disorder; F19.24 Other psychoactive substance dependence with psychoactive substance-induced mood disorder; B18.2 Chronic viral hepatitis C; R63.4 Abnormal weight loss; Z68.21 Body mass index [BMI] 21.0-21.9, adult; Z88.0 Allergy status to penicillin; Z91.013 Allergy to seafood
CPT/HCPCS: 36415; 80053; 81003; 85027; 86593; 93005; 93010

== ENCOUNTER 2018-03-03 16:30 | Inpatient (IN) | payer OTHER ==
[2018-03-03 17:03] VITALS: BMI 20.9
--- NOTE | 2018-03-03 18:55 | HP ---
CIWA Score Nausea/Vomitin-Mild Nausea/No Vomiting Muscle Tremors: 4-Moderate,w/Arms Extend Anxiety: 3 Agitation: 1-Slight > Activity Paroxysmal Sweats: 3 Orientation: 0-Oriented Tacttile Disturbances: 0-None Auditory Disturbances: 0-None Visual Disturbances: 0-None Headache: 4-Moderately Severe CIWA-Ar Total Score: 16 - Admission Criteria OASAS Guidelines: Admission for Medically Managed Detox: Requires at least one of the followin. CIWA greater than 12 2. Seizures within the past 24 hours 3. Delirium tremens within the past 24 hours 4. Hallucinations within the past 24 hours 5. Acute intervention needed for co occurring medical disorder 6. Acute intervention needed for co occurring psychiatric disorder 7. Severe withdrawal that cannot be handled at a lower level of care (continued vomiting, continued diarrhea, abnormal vital signs) requiring intravenous medication and/or fluids 8. Admission ROS [facility] Chief Complaint: Alcohol withdrawal symptoms Allergies/Adverse Reactions: Allergies Allergy/AdvReac Type Severity Reaction Status Date / Time Penicillins Allergy Severe Swelling Verified 03/03/18 18:04 shellfish derived Allergy Severe Swelling Verified 03/03/18 18:04 History of Present Illness: 57 years old male with 30 years of alcohol dependence is seeking admission to detox. Patient has been in multiple detox and reports a year of sobriety. He has medical history of Hep. C, GERD and depression. He denies suicide attempt and suicidal ideation at this time. Exam Limitations: No Limitations - Ebola screening Have you traveled outside of the country in the last 21 days: No (N) Have you had contact with anyone from an Ebola affected area: No Have you been sick,other than usual withdrawal symptoms: No Do you have a fever: No - Review of Systems Constitutional: Chills, Loss of Appetite, Malaise, Night Sweats, Changes in sleep, Unexplained wgt Loss (reports 8 pounds weight loss in a month) EENT: reports: No Symptoms Reported Respiratory: reports: No Symptoms reported Cardiac: reports: No Symptoms Reported GI: reports: Diarrhea (x 3), Nausea, Poor Appetite, Poor Fluid Intake, Abdominal cramping : reports: No Symptoms Reported Musculoskeletal: reports: Back Pain, Joint Pain, Muscle Pain Integumentary: reports: Dryness, Flushing Neuro: reports: Headache, Tremors Endocrine: reports: No Symptoms Reported Hematology: reports: No Symptoms Reported Psychiatric: reports: Orientated x3, Anxious, Depressed Other Systems: Reviewed and Negative Patient History - Patient Medical History Hx Anemia: No Hx Asthma: No Hx Chronic Obstructive Pulmonary Disease (COPD): No Hx Cancer: No Hx Cardiac Disorders: No Hx Congestive Heart Failure: No Hx Hypertension: No Hx Hypercholesterolemia: No Hx Pacemaker: No HX Cerebrovascular Accident: No Hx Seizures: No Hx Dementia: No Hx Diabetes: No Hx Gastrointestinal Disorders: Yes (GERD) Hx Liver Disease: Yes (hep c + no treatment) Hx Genitourinary Disorders: No Hx Sexually Transmitted Disorders: No Hx Renal Disease (ESRD): No Hx Thyroid Disease: No Hx Human Immunodeficiency Virus (HIV): No Hx Hepatitis C: Yes (Not treatment) Hx Depression: Yes (Not on medication) Hx Suicide Attempt: No Hx Bipolar Disorder: No Hx Schizophrenia: No - Patient Surgical History Past Surgical History: No Hx Neurologic Surgery: No Hx Cataract Extraction: No Hx Cardiac Surgery: No Hx Lung Surgery: No Hx Breast Surgery: No Hx Breast Biopsy: No Hx Abdominal Surgery: No Hx Appendectomy: No Hx Cholecystectomy: No Hx Genitourinary Surgery: No Hx Section: No Hx Orthopedic Surgery: No Hx Hysterectomy: No Anesthesia Reaction: No - PPD History Previous Implant?: Yes Documented Results: Negative w/proof Date: 01/02/18 Results: 0 mm PPD to be Administered?: No - Reproductive History Patient is a Female of Child Bearing Age (11 -55 yrs old): No (Male) - Smoking Cessation Smoking history: Never smoked Have you smoked in the past 12 months: No Hx Chewing Tobacco Use: No Initiated information on smoking cessation: No - Substance & Tx. History Substance Use Type: Alcohol, Cocaine - Substances Abused Alcohol Route: Oral Frequency: Daily Amount used: LIQUOR- 3 PINTS Age of first use: 27 Date of Last Use: 03/02/18 Cocaine Route: Smoking Frequency: Daily Amount used: $100 WORTH Age of first use: 27 Date of Last Use: 03/02/18 Family Disease History - Family Disease History Family Disease History: Heart Disease: Father ([place],ALCOHOL), Other: Father Admission Physical Exam [facility] - Vital Signs Vital Signs: Vital Signs - 24 hr 03/03/18 17:01 Temperature 96 F L Pulse Rate 71 Respiratory 20 Rate Blood Pressure 114/72 - Physical General Appearance: Yes: Moderate Distress, Tremorous, Anxious HEENTM: Yes: EOMI, Normal ENT Inspection, Normal Voice Respiratory: Yes: Lungs Clear, Normal Breath Sounds, No Respiratory Distress Neck: Yes: Supple Breast: Yes: Breast Exam Deferred Cardiology: Yes: Regular Rhythm, Regular Rate Abdominal: Yes: Normal Bowel Sounds, Soft Genitourinary: Yes: Within Normal Limits Back: Yes: Normal Inspection Musculoskeletal: Yes: Back pain, Joint swelling, Muscle Pain Extremities: Yes: Tremors 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: tumblers supervisor II-XII NML intact, Alert, Normal Mood/Affect Integumentary: Yes: Warm Lymphatic: Yes: Within Normal Limits - Diagnostic (1) Alcohol dependence with uncomplicated withdrawal Current Visit: Yes Status: Chronic (2) Cocaine dependence Current Visit: Yes Status: Chronic Qualifiers: Substance use status: uncomplicated Qualified Code(s): F14.20 - Cocaine dependence, uncomplicated (3) GERD (gastroesophageal reflux disease) Current Visit: Yes Status: Chronic Qualifiers: Esophagitis presence: without esophagitis Qualified Code(s): K21.9 - Gastro -esophageal reflux disease without esophagitis (4) Hepatitis C Current Visit: Yes Status: Chronic Qualifiers: Viral hepatitis chronicity: chronic Hepatic coma status: without hepatic coma Qualified Code(s): B18.2 - Chronic viral hepatitis C (5) Sedative hypnotic or anxiolytic dependence Current Visit: Yes Status: Chronic Cleared for Admission [facility] - Detox or Rehab [facility] Level of Care: Medically Managed Detox Regimen/Protocol: Librium [facility] Breath Alcohol Content Breath Alcohol Content: 0 Urine Drug Screen - Results Drug Screen Negative: No Urine Drug Screen Results: VINEET-Cocaine
[2018-03-03] MEDS ORDERED: IBUPROFEN 400 MG TABLET (FP) PO PRN (19:01)
[2018-03-03] MEDS ORDERED: MAGNESIUM HYDROX 2400MG/30ML ORAL SUSPENSION 30 ML CUP PO PRN (19:01)
[2018-03-03] MEDS ORDERED: MAG HYDROX/AL HYDROX/SIMETH 30 ML UNIT-DOSE CUP PO PRN (19:01)
[2018-03-03] MEDS ORDERED: P-EPHED 60MG/TRIPROLIDI 2.5MG TABLET PO PRN (19:01)
[2018-03-03] MEDS ORDERED: ACETAMINOPHEN 325 MG TABLET (FP) PO PRN (19:01)
[2018-03-03] MEDS ORDERED: guaiFENesin/D-METHORPHAN HB 10 ML UNIT-DOSE CUPS PO PRN (19:01)
[2018-03-03] MEDS ORDERED: MAGNESIUM CITRATE 300 ML BOTTLE PO PRN (19:01)
[2018-03-03] MEDS ORDERED: LOPERAMIDE HCL 2 MG CAPSULE PO PRN (19:01)
[2018-03-03] MEDS ORDERED: MENTHOL/PHENOL 1 EACH UD MM PRN (19:01)
[2018-03-03] MEDS ORDERED: chlordiazePOXIDE HCL 25 MG CAPSULE PO PRN (19:01)
[2018-03-03] MEDS: chlordiazePOXIDE HCL 25 MG CAPSULE PO SCH (22:55)
[2018-03-03] MEDS: THIAMINE HCL 100 MG TABLET (FP) PO SCH (22:55)
[2018-03-04] MEDS: chlordiazePOXIDE HCL 25 MG CAPSULE PO SCH ×4 (05:50→22:41)
[2018-03-04] MEDS: PRENATAL VITAMINS W/ FOLIC ACID TABLET (FP) PO SCH (10:29)
[2018-03-04 10:55] LABS: ALK PHOS 72 U/L (45-117); ANION GAP 7 MMOL/L (8-16); BILIRUBIN,TOTAL 0.2 mg/dL (0.2-1); BLOOD UREA NITROGEN 16 mg/dL (7-18); CALCIUM 8.3 mg/dL (8.5-10.1); CHLORIDE 106 mmol/L (98-107); CO2 26 mmol/L (21-32); CREATININE 1.2 mg/dL (0.55-1.3); GLUCOSE,RANDOM 133 mg/dL (74-106); POTASSIUM 3.6 mmol/L (3.5-5.1); SGOT/AST 36 U/L (15-37); SGPT/ALT 47 U/L (13-61); SODIUM 139 mmol/L (136-145)
[2018-03-04 11:11] LABS: HEMATOCRIT 37.6 % (35.4-49); MCH 29.2 pg (25.7-33.7); MCHC 31.9 g/dl (32.0-35.9); MEAN CELL VOLUME 91.6 fl (80-96); MEAN PLT VOLUME 9.2 fl (7.5-11.1); PLATELET COUNT 140 K/MM3 (134-434); RBC 4.11 M/mm3 (4.00-5.60); RDW 14.2 % (11.9-15.9); WHITE BLOOD COUNT 3.2 K/mm3 (4.0-10.0)
--- NOTE | 2018-03-04 11:55 | PN ---
[facility] CIWA - CIWA Score Nausea/Vomitin Muscle Tremors: 2 Anxiety: 2 Agitation: 2 Paroxysmal Sweats: 2 Orientation: 0-Oriented Tacttile Disturbances: 2-Mild Itch/Numbness/Burn Auditory Disturbances: 0-None Visual Disturbances: 0-None Headache: 0-None Present CIWA-Ar Total Score: 12 S Progress Note (SOAP) Subjective: interrupted sleep, tired, achy, sweats Objective: 03/04/18 11:53 Vital Signs Temperature 97.7 F 03/04/18 09:26 Pulse Rate 91 H 03/04/18 09:26 Respiratory Rate 18 03/04/18 09:26 Blood Pressure 105/61 03/04/18 09:26 O2 Sat by Pulse Oximetry (%) Laboratory Tests 03/04/18 03/04/18 07:50 07:50 WBC 3.2 L RBC 4.11 Hgb 12.0 Hct 37.6 MCV 91.6 MCH 29.2 MCHC 31.9 L RDW 14.2 Plt Count 140 MPV 9.2 Sodium 139 Potassium 3.6 Chloride 106 Carbon Dioxide 26 Anion Gap 7 L BUN 16 Creatinine 1.2 Creat Clearance w eGFR > 60 Random Glucose 133 H Calcium 8.3 L Total Bilirubin 0.2 AST 36 ALT 47 Alkaline Phosphatase 72 Total Protein 6.0 L Albumin 3.0 L pt aox3 in nad ambulating Assessment: 03/04/18 11:54 withdrawal sx's elevated glucose leukopenia Plan: cont. detox increase fluids repeat fasting glucose
[2018-03-04] MEDS: THIAMINE HCL 100 MG TABLET (FP) PO SCH (22:41)
[2018-03-04] MEDS: MELATONIN 5 MG TABLETS PO PRN (22:42)
[2018-03-05] MEDS: chlordiazePOXIDE HCL 25 MG CAPSULE PO SCH ×3 (05:37→17:38)
[2018-03-05] MEDS: PRENATAL VITAMINS W/ FOLIC ACID TABLET (FP) PO SCH (10:23)
[2018-03-05 10:27] LABS: ANION GAP 5 MMOL/L (8-16); BLOOD UREA NITROGEN 12 mg/dL (7-18); CALCIUM 8.8 mg/dL (8.5-10.1); CHLORIDE 109 mmol/L (98-107); CO2 27 mmol/L (21-32); GLUCOSE,RANDOM 92 mg/dL (74-106); POTASSIUM 3.9 mmol/L (3.5-5.1); SODIUM 141 mmol/L (136-145)
[2018-03-05] MEDS: RANITIDINE HCL 150 MG TABLET (FP) PO SCH ×2 (12:10→22:08)
--- NOTE | 2018-03-05 12:52 | PN ---
[facility] CIWA - CIWA Score Nausea/Vomitin-No Nausea/No Vomiting Muscle Tremors: 3 Anxiety: 3 Agitation: 3 Paroxysmal Sweats: 2 Orientation: 0-Oriented Tacttile Disturbances: 0-None Auditory Disturbances: 0-None Visual Disturbances: 0-None Headache: 0-None Present CIWA-Ar Total Score: 11 S Progress Note (SOAP) Subjective: sweats shakes interrupted sleep body aches nausea i need gingerale and ensure Objective: 03/05/18 12:50 Vital Signs Temperature 97.0 F L 03/05/18 09:33 Pulse Rate 76 03/05/18 09:33 Respiratory Rate 18 03/05/18 09:33 Blood Pressure 113/56 L 03/05/18 09:33 O2 Sat by Pulse Oximetry (%) Laboratory Tests 03/04/18 03/04/18 03/04/18 07:50 07:50 07:50 WBC 3.2 L RBC 4.11 Hgb 12.0 Hct 37.6 MCV 91.6 MCH 29.2 MCHC 31.9 L RDW 14.2 Plt Count 140 MPV 9.2 Sodium 139 Potassium 3.6 Chloride 106 Carbon Dioxide 26 Anion Gap 7 L BUN 16 Creatinine 1.2 Creat Clearance w eGFR > 60 Random Glucose 133 H Calcium 8.3 L Total Bilirubin 0.2 AST 36 ALT 47 Alkaline Phosphatase 72 Total Protein 6.0 L Albumin 3.0 L RPR Titer Nonreactive 03/05/18 07:10 WBC RBC Hgb Hct MCV MCH MCHC RDW Plt Count MPV Sodium 141 Potassium 3.9 Chloride 109 H Carbon Dioxide 27 Anion Gap 5 L BUN 12 Creatinine 1.0 Creat Clearance w eGFR > 60 Random Glucose 92 Calcium 8.8 Total Bilirubin AST ALT Alkaline Phosphatase Total Protein Albumin RPR Titer aaox3 ambulating no acute distress Assessment: 03/05/18 12:51 withdrawal sx Plan: continue detox increase fluids gingerale with meals ensure bid zofran prn
[2018-03-05] MEDS: chlordiazePOXIDE 5 MG CAPSULE PO SCH (22:08)
[2018-03-05] MEDS: THIAMINE HCL 100 MG TABLET (FP) PO SCH (22:08)
[2018-03-05] MEDS: MELATONIN 5 MG TABLETS PO PRN (22:09)
[2018-03-06] MEDS: chlordiazePOXIDE 5 MG CAPSULE PO SCH ×2 (05:41→10:34)
[2018-03-06 10:00] VITALS: BP 127/66; PULSE 81; TEMP 97.9
[2018-03-06] MEDS: RANITIDINE HCL 150 MG TABLET (FP) PO SCH (10:34)
[2018-03-06] MEDS: PRENATAL VITAMINS W/ FOLIC ACID TABLET (FP) PO SCH (10:34)
--- NOTE | 2018-03-06 11:32 | PN ---
[facility] Progress Note (SOAP) Subjective: sweats agitation Objective: 03/06/18 11:41 Vital Signs Temperature 97.9 F 03/06/18 09:59 Pulse Rate 81 03/06/18 09:59 Respiratory Rate 18 03/06/18 09:59 Blood Pressure 127/66 03/06/18 09:59 O2 Sat by Pulse Oximetry (%) aaox3 ambulating no acute distress Assessment: 03/06/18 11:43 withdrawal sx Plan: continue detox increase fluids d/c in am
--- NOTE | 2018-03-06 12:22 | DS ---
[facility] Detox Discharge Summary Admission Date: 03/03/18 Discharge Date: 03/06/18 - History Present History: Alcohol Dependence, Cocaine Dependence, Opioid Dependence, Sedative Dependence - Physical Exam Results Vital Signs: Vital Signs Temperature 97.9 F 03/06/18 09:59 Pulse Rate 81 03/06/18 09:59 Respiratory Rate 18 03/06/18 09:59 Blood Pressure 127/66 03/06/18 09:59 O2 Sat by Pulse Oximetry (%) - Treatment Hospital Course: Detox Protocol Followed, Detoxed Safely, Responded well, Discharged Condition Good, Rehab Referral Accepted - Medication Discharge Medications: Ambulatory Orders Omeprazole Magnesium [Prilosec Otc] 20 mg PO DAILY #30 tablet. 11/18/17 Quetiapine Fumarate [Seroquel -] 50 mg PO HS #30 tablet 01/01/18 - Diagnosis (1) Alcohol dependence with uncomplicated withdrawal Current Visit: Yes Status: Chronic (2) Cocaine dependence Current Visit: Yes Status: Chronic Qualifiers: Substance use status: uncomplicated Qualified Code(s): F14.20 - Cocaine dependence, uncomplicated (3) GERD (gastroesophageal reflux disease) Current Visit: Yes Status: Chronic Qualifiers: Esophagitis presence: without esophagitis Qualified Code(s): K21.9 - Gastro -esophageal reflux disease without esophagitis (4) Hepatitis C Current Visit: Yes Status: Chronic Qualifiers: Viral hepatitis chronicity: chronic Hepatic coma status: without hepatic coma Qualified Code(s): B18.2 - Chronic viral hepatitis C (5) Sedative hypnotic or anxiolytic dependence Current Visit: Yes Status: Chronic (6) Alcohol-induced mood disorder Current Visit: No Status: Acute (7) Alcohol-induced sleep disorder Current Visit: No Status: Acute (8) Drug-induced mood disorder Current Visit: No Status: Acute (9) Insomnia Current Visit: No Status: Acute Qualifiers: Insomnia type: drug-induced Qualified Code(s): F19.982 - Other psychoactive substance use, unspecified with psychoactive substance-induced sleep disorder (10) [place] dependence Current Visit: No Status: Acute (11) Opioid dependence with withdrawal Current Visit: Yes Status: Chronic (12) Substance induced mood disorder Current Visit: No Status: Acute (13) Substance-induced anxiety disorder Current Visit: No Status: Acute (14) Substance-induced sleep disorder Current Visit: No Status: Acute (15) Weight decreased Current Visit: No Status: Acute
[2018-03-06] MEDS ORDERED: QUEtiapine FUMARATE 50 MG TABLET PO SCH (22:00)
[2018-03-06] MEDS ORDERED: chlordiazePOXIDE HCL 10 MG CAPSULE PO SCH (23:00)
== END 2018-03-06 02:20 | disposition home or self-care (01) | DRG 773 ==
LOC: YASAS 16:30 → Y6N 19:11
PROC: HZ2ZZZZ Detoxification Services for Substance Abuse Treatment (ICD-10-PCS; principal; 2018-03-03)
DX: F11.23 Opioid dependence with withdrawal (principal); F10.230 Alcohol dependence with withdrawal, uncomplicated; F10.24 Alcohol dependence with alcohol-induced mood disorder; F10.282 Alcohol dependence with alcohol-induced sleep disorder; F13.20 Sedative, hypnotic or anxiolytic dependence, uncomplicated; F14.20 Cocaine dependence, uncomplicated; F12.20 Cannabis dependence, uncomplicated; F19.282 Other psychoactive substance dependence with psychoactive substance-induced sleep disorder; F19.24 Other psychoactive substance dependence with psychoactive substance-induced mood disorder; G47.00 Insomnia, unspecified; B18.2 Chronic viral hepatitis C; K21.9 Gastro-esophageal reflux disease without esophagitis; D72.819 Decreased white blood cell count, unspecified; R73.9 Hyperglycemia, unspecified; Z88.0 Allergy status to penicillin; Z91.013 Allergy to seafood
CPT/HCPCS: 36415; 80048; 80053; 85027; 86593

== ENCOUNTER 2018-10-17 14:05 | Inpatient (IN) | payer OTHER ==
[2018-10-17 17:35] VITALS: BMI 19.8
--- NOTE | 2018-10-17 18:24 | HP ---
CIWA Score Nausea/Vomitin Muscle Tremors: 3 Anxiety: 1-Mildly Anxious Agitation: 1-Slight > Activity Paroxysmal Sweats: 2 Orientation: 0-Oriented Tacttile Disturbances: 0-None Auditory Disturbances: 1-Very Mild Visual Disturbances: 1-Very Mild Sensitivity Headache: 2-Mild CIWA-Ar Total Score: 13 - Admission Criteria OASAS Guidelines: Admission for Medically Managed Detox: Requires at least one of the followin. CIWA greater than 12 2. Seizures within the past 24 hours 3. Delirium tremens within the past 24 hours 4. Hallucinations within the past 24 hours 5. Acute intervention needed for co occurring medical disorder 6. Acute intervention needed for co occurring psychiatric disorder 7. Severe withdrawal that cannot be handled at a lower level of care (continued vomiting, continued diarrhea, abnormal vital signs) requiring intravenous medication and/or fluids 8. Admission ROS [facility] - [facility] Chief Complaint: alcohol detox Allergies/Adverse Reactions: Allergies Allergy/AdvReac Type Severity Reaction Status Date / Time Penicillins Allergy Severe Swelling Verified 10/17/18 17:27 shellfish derived Allergy Severe Swelling Verified 10/17/18 17:27 History of Present Illness: 58 y/o M with hx hep c (not tx) presenting for alcohol detox. Per pt, he has been drinking 1 quart of vodka daily, which he drank this AM as well. Drinks to feel relaxed. No history of alc withdrawal seizures. History of blackouts. Drinks because it makes him feel calm. Started as a social occurrence, but became "a habit.'' During this time, pt has also been using vicodin. Uses 3 a day of 5mg each. Does this daily since he was 42 y/o. Makes him feel calm. Also uses cocaine 1-2x a month; smokes $200 worth and makes him feel paranoid and hyper. 02/2018 - detox and rehab [facility] after detox wants to go to rehab. 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 denies smoking. would like to move since it is connected with the "people, place and things" Exam Limitations: No Limitations - Ebola screening Have you traveled outside of the country in the last 21 days: No Have you had contact with anyone from an Ebola affected area: No Have you been sick,other than usual withdrawal symptoms: No Do you have a fever: No - Review of Systems Constitutional: Chills, Diaphoresis, Unintentional Wgt. Loss (+40 lbs a month) EENT: reports: No Symptoms Reported Respiratory: reports: No Symptoms reported Cardiac: reports: No Symptoms Reported GI: reports: Nausea : reports: No Symptoms Reported Musculoskeletal: reports: Back Pain, Joint Pain Integumentary: reports: No Symptoms Reported Neuro: reports: No Symptoms reported Endocrine: reports: No Symptoms Reported Hematology: reports: No Symptoms Reported Psychiatric: reports: Orientated x3 Patient History - Patient Medical History Hx Anemia: No Hx Asthma: No Hx Chronic Obstructive Pulmonary Disease (COPD): No Hx Cancer: No Hx Cardiac Disorders: No Hx Congestive Heart Failure: No Hx Hypertension: No Hx Hypercholesterolemia: No Hx Pacemaker: No HX Cerebrovascular Accident: No Hx Seizures: No Hx Dementia: No Hx Diabetes: No Hx Gastrointestinal Disorders: Yes (GERD) Hx Liver Disease: Yes (hep c + no treatment) Hx Genitourinary Disorders: No Hx Sexually Transmitted Disorders: No Hx Renal Disease (ESRD): No Hx Thyroid Disease: No Hx Human Immunodeficiency Virus (HIV): No Hx Hepatitis C: Yes (Not treatment) Hx Depression: Yes (Not on medication) Hx Suicide Attempt: No Hx Bipolar Disorder: No Hx Schizophrenia: No - Patient Surgical History Past Surgical History: No Hx Neurologic Surgery: No Hx Cataract Extraction: No Hx Cardiac Surgery: No Hx Lung Surgery: No Hx Breast Surgery: No Hx Breast Biopsy: No Hx Abdominal Surgery: No Hx Appendectomy: No Hx Cholecystectomy: No Hx Genitourinary Surgery: No Hx Section: No Hx Orthopedic Surgery: No Hx Hysterectomy: No Anesthesia Reaction: No - PPD History Date: 01/02/18 Results: 0 mm PPD to be Administered?: No - Reproductive History Patient is a Female of Child Bearing Age (11 -55 yrs old): No - Smoking Cessation Smoking history: Never smoked Have you smoked in the past 12 months: No Hx Chewing Tobacco Use: No - Substances abused Alcohol Substance route: Oral Frequency: Daily Amount used: 1 quart of vodka, 6 packs of beer. Age of first use: 20 Date of last use: 08/09/19 Alprazolam (Xanax) Substance route: Oral Frequency: Daily Amount used: 5 mg Age of first use: 20 Date of last use: 10/15/18 Other Other (specify): vicodin Substance route: Oral Frequency: Daily Amount used: 3 pills of 5mg each daily Age of first use: 42 Date of last use: 10/16/18 Family Disease History - Family Disease History Family Disease History: Heart Disease: Father ([place],ALCOHOL), Other: Father Admission Physical Exam [facility] - Vital Signs Vital Signs: Vital Signs - 24 hr 10/17/18 17:29 Temperature 98.6 F Pulse Rate 90 Respiratory 18 Rate Blood Pressure 114/73 - Physical General Appearance: Yes: Within Normal Limits HEENTM: Yes: Hearing grossly Normal Respiratory: Yes: Lungs Clear Neck: Yes: Within Normal Limits Breast: Yes: Breast Exam Deferred Cardiology: Yes: Regular Rhythm, Regular Rate, S1, S2 Abdominal: Yes: Non Tender, Flat Genitourinary: Yes: Within Normal Limits Back: Yes: Within Normal Limits Musculoskeletal: Yes: full range of Motion Extremities: Yes: Normal Capillary Refill 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: dry primer powder blender II-XII NML intact Integumentary: Yes: Dry, Warm Lymphatic: Yes: Within Normal Limits - Diagnostic (1) Insomnia Current Visit: Yes Status: Chronic Qualifiers: Insomnia type: drug-induced Qualified Code(s): F19.982 - Other psychoactive substance use, unspecified with psychoactive substance-induced sleep disorder (2) Weight decreased Current Visit: Yes Status: Chronic (3) Alcohol dependence with uncomplicated withdrawal Current Visit: Yes Status: Acute (4) Cocaine dependence Current Visit: Yes Status: Chronic Qualifiers: Substance use status: uncomplicated Qualified Code(s): F14.20 - Cocaine dependence, uncomplicated (5) GERD (gastroesophageal reflux disease) Current Visit: Yes Status: Chronic Qualifiers: Esophagitis presence: without esophagitis Qualified Code(s): K21.9 - Gastro -esophageal reflux disease without esophagitis (6) Hepatitis C Current Visit: Yes Status: Chronic Qualifiers: Viral hepatitis chronicity: chronic Hepatic coma status: without hepatic coma Qualified Code(s): B18.2 - Chronic viral hepatitis C Cleared for Admission [facility] - Detox or Rehab [facility] Level of Care: Medically Managed Detox Regimen/Protocol: Valium Breathalyzer - Breathalyzer Breathalyzer: 0 Urine Drug Screen - Test Device Lot number: [id number] Expiration date: 07/08/20 - Control Is test valid?: Yes - Results Drug screen NEGATIVE: No Urine drug screen results: VINEET-Cocaine Inpatient Rehab Admission - Rehab Decision to Admit Inpatient rehab admission?: No
--- NOTE | 2018-10-17 19:06 | PN ---
Teaching Attending Note Name of Resident: Beverley Gandara ATTENDING PHYSICIAN STATEMENT I saw and evaluated the patient. I reviewed the resident's note and discussed the case with the resident. I agree with the resident's findings and plan as documented. SUBJECTIVE: 58 yo with HCV pos, not treated, here for alcohol detox. Drinks 1 quart of vodka a day. Uses vicodin 15mg/day cocaine crack $300/day OBJECTIVE: Vital Signs - 24 hr 10/17/18 17:29 Temperature 98.6 F Pulse Rate 90 Respiratory 18 Rate Blood Pressure 114/73 alert and oriented mildly tremulous ASSESSMENT AND PLAN: alcohol detox- pt prefers Valium, says librium does not work for him
[2018-10-17] MEDS ORDERED: BISMUTH SUBSALICYLATE 524 MG/30 ML UD PO PRN (19:09)
[2018-10-17] MEDS ORDERED: MAG HYDROX/AL HYDROX/SIMETH 30 ML UNIT-DOSE CUP PO PRN (19:09)
[2018-10-17] MEDS ORDERED: MENTHOL/PHENOL 1 EACH UD MM PRN (19:09)
[2018-10-17] MEDS ORDERED: MAGNESIUM CITRATE 300 ML BOTTLE PO PRN (19:09)
[2018-10-17] MEDS ORDERED: MELATONIN 5 MG TABLETS PO PRN (19:09)
[2018-10-17] MEDS ORDERED: MAGNESIUM HYDROX 2400MG/30ML ORAL SUSPENSION 30 ML CUP PO PRN (19:09)
[2018-10-17] MEDS ORDERED: IBUPROFEN 400 MG TABLET (FP) PO PRN (19:09)
[2018-10-17] MEDS ORDERED: ACETAMINOPHEN 325 MG TABLET (FP) PO PRN ×2 (19:09)
[2018-10-17] MEDS ORDERED: hydrOXYzine PAMOATE 25 MG CAPSULE (FP) PO PRN (19:09)
[2018-10-17] MEDS ORDERED: cloNIDine HCL 0.1 MG TABLET PO PRN (19:21)
[2018-10-17] MEDS: diazePAM 5 MG TABLET PO PRN (20:15)
[2018-10-17] MEDS: PANTOPRAZOLE 20 MG TABLET (FP) PO SCH (20:15)
[2018-10-17] MEDS: diazePAM 5 MG TABLET PO SCH (22:07)
[2018-10-17] MEDS: THIAMINE HCL 100 MG TABLET (FP) PO SCH (22:07)
[2018-10-18] MEDS: diazePAM 5 MG TABLET PO SCH ×3 (05:16→22:15)
[2018-10-18 09:54] LABS: BILIRUBIN,TOTAL 0.2 mg/dL (0.2-1); BLOOD UREA NITROGEN 16.6 mg/dL (7-18); CALCIUM 8.7 mg/dL (8.5-10.1)
[2018-10-18 09:59] LABS: HEMATOCRIT 37.6 % (35.4-49); HEMOGLOBIN 12.2 GM/dL (11.7-16.9); MCH 29.1 pg (25.7-33.7); MCHC 32.5 g/dl (32.0-35.9); MEAN CELL VOLUME 89.6 fl (80-96); MEAN PLT VOLUME 8.8 fl (7.5-11.1); PLATELET COUNT 143 K/MM3 (134-434); RBC 4.19 M/mm3 (4.00-5.60); RDW 14.2 % (11.9-15.9); WHITE BLOOD COUNT 4.1 K/mm3 (4.0-10.0)
--- NOTE | 2018-10-18 10:30 | PN ---
S CIWA - CIWA Score Nausea/Vomitin-Mild Nausea/No Vomiting Muscle Tremors: 2 Anxiety: 3 Agitation: 0-Normal Activity Paroxysmal Sweats: 3 Orientation: 0-Oriented Tacttile Disturbances: 0-None Auditory Disturbances: 0-None Visual Disturbances: 0-None Headache: 2-Mild CIWA-Ar Total Score: 11 S Progress Note (SOAP) Subjective: c/o sweats, anxiety, headache, and interrupted sleep. Objective: 10/18/18 10:29 Vital Signs 10/18/18 10/18/18 10/18/18 03:30 06:28 09:19 Temperature 97.1 F L 97.3 F L Pulse Rate 71 69 Respiratory 18 18 18 Rate Blood Pressure 100/63 98/66 Lab Results WBC 4.1 K/mm3 (4.0-10.0) 10/18/18 08:00 RBC 4.19 M/mm3 (4.00-5.60) 10/18/18 08:00 Hgb 12.2 GM/dL (11.7-16.9) 10/18/18 08:00 Hct 37.6 % (35.4-49) 10/18/18 08:00 MCV 89.6 fl (80-96) 10/18/18 08:00 MCHC 32.5 g/dl (32.0-35.9) 10/18/18 08:00 RDW 14.2 % (11.9-15.9) 10/18/18 08:00 Plt Count 143 K/MM3 (134-434) 10/18/18 08:00 Sodium 142 mmol/L (136-145) 10/18/18 08:00 Potassium 4.0 mmol/L (3.5-5.1) 10/18/18 08:00 Chloride 107 mmol/L (98-107) 10/18/18 08:00 Carbon Dioxide 29 mmol/L (21-32) 10/18/18 08:00 Anion Gap 6 MMOL/L (8-16) L 10/18/18 08:00 BUN 16.6 mg/dL (7-18) 10/18/18 08:00 Creatinine 1.0 mg/dL (0.55-1.3) 10/18/18 08:00 Random Glucose 84 mg/dL (74-106) 10/18/18 08:00 Calcium 8.7 mg/dL (8.5-10.1) 10/18/18 08:00 Labs noted Assessment: 10/18/18 10:30 AOX3, in no acute respiratory distress Full ROM, ambulating in the unit. withdrawal symptoms. Plan: continue detox
[2018-10-18] MEDS: PANTOPRAZOLE 20 MG TABLET (FP) PO SCH (10:44)
[2018-10-18] MEDS: PRENATAL VITAMINS W/ FOLIC ACID TABLET (FP) PO SCH (10:44)
[2018-10-18] MEDS: METHOCARBAMOL 500 MG TABLET PO PRN ×2 (10:47→22:17)
--- NOTE | 2018-10-18 13:26 | CONSULT ---
[facility] Psychiatric Consult - Data Date of interview: 10/18/18 Admission source: [facility] Identifying data: Readmission to [facility] for this 58 y/o AA male, self- referred for detoxification (alcohol, opioid, cocaine). Interviewed at [address] [place] [address]. 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 Substance Abuse History: Confirmed by patient. Details in current [facility] report as follows : Smoking history: Never smoked. Have you smoked in the past 12 months : No. Hx Chewing Tobacco Use: No. Substances abused. Alcohol. Substance route: Oral. Frequency: Daily. Amount used: 1 quart of vodka, 6 packs of beer. Age of first use: 20. Date of last use: 10/17/18. Alprazolam (Xanax) . Substance route: Oral. Frequency: Daily. Amount used: 5 mg. Age of first use: 20. Date of last use: 10/15/18. Other. Other (specify): vicodin. Substance route: Oral. Frequency: Daily. Amount used: 3 pills of 5mg each daily. Age of first use: 42. Date of last use: 10/16/18 Medical History: Hepatitis C. Psychiatric History: Patient denies history of psychiatric hospitalizations, OPD care or suicide attempts. Mr Adams reports past exposure to seroquel from admissions to various substance abuse treatment centers. Physical/Sexual Abuse/Trauma History: Patient denies. Additional Comment: Urine drug screen results: VINEET-Cocaine. Noted. Mental Status Exam - Mental Status Exam Alert and Oriented to: Time, Place, Person Cognitive Function: Good Patient Appearance: Well Groomed Mood: Hopeful, Euthymic Affect: Appropriate, Normal Range Patient Behavior: Appropriate, Cooperative Speech Pattern: Clear Voice Loudness: Normal Thought Process: Intact, Goal Oriented Thought Disorder: Not Present Hallucinations: Denies Suicidal Ideation: Denies Homicidal Ideation: Denies Insight/Judgement: Poor Sleep: Poorly, Difficulty falling asleep Appetite: Good Muscle strength/Tone: Normal Gait/Station: Normal Psychiatric Findings - Problem List ([place] 1, 2,3) (1) Alcohol dependence with uncomplicated withdrawal Current Visit: Yes Status: Acute (2) Opioid use disorder Current Visit: Yes Status: Chronic (3) Cocaine dependence Current Visit: Yes Status: Chronic Qualifiers: Substance use status: uncomplicated Qualified Code(s): F14.20 - Cocaine dependence, uncomplicated (4) Substance induced mood disorder Current Visit: Yes Status: Chronic (5) Insomnia Current Visit: Yes Status: Chronic Qualifiers: Insomnia type: drug-induced Qualified Code(s): F19.982 - Other psychoactive substance use, unspecified with psychoactive substance-induced sleep disorder - Initial Treatment Plan Initial Treatment Plan: Psychoeducation. Sleep hygiene. Detoxification. Support. Seroquel 50 mg po hs. Side effects/benefits discussed with patient. Gave consent (verbal) to . NA/AA meetings. Observation.
[2018-10-18] MEDS: diazePAM 5 MG TABLET PO PRN (14:42)
[2018-10-18] MEDS: QUEtiapine FUMARATE 50 MG TABLET PO SCH (22:15)
[2018-10-18] MEDS: THIAMINE HCL 100 MG TABLET (FP) PO SCH (22:15)
[2018-10-19] MEDS: diazePAM 5 MG TABLET PO SCH ×2 (05:49→17:52)
--- NOTE | 2018-10-19 09:59 | PN ---
[facility] CIWA - CIWA Score Nausea/Vomitin-No Nausea/No Vomiting Muscle Tremors: 3 Anxiety: 2 Agitation: 2 Paroxysmal Sweats: 1-Minimal Palms Moist Orientation: 0-Oriented Tacttile Disturbances: 0-None Auditory Disturbances: 0-None Visual Disturbances: 0-None Headache: 0-None Present CIWA-Ar Total Score: 8 S Progress Note (SOAP) Subjective: 58 years old male admitted on 10/17/18 for acute alcohol withdrawal sx management doing well with valium detox protocol medical history of hepatitis c and gerd resting on bed less anxious with mild tremor Objective: 10/19/18 09:59 Vital Signs Temperature 96.7 F L 10/19/18 09:28 Pulse Rate 76 10/19/18 09:28 Respiratory Rate 18 10/19/18 09:28 Blood Pressure 100/64 10/19/18 09:28 O2 Sat by Pulse Oximetry (%) Laboratory Last Values WBC 4.1 K/mm3 (4.0-10.0) 10/18/18 08:00 RBC 4.19 M/mm3 (4.00-5.60) 10/18/18 08:00 Hgb 12.2 GM/dL (11.7-16.9) 10/18/18 08:00 Hct 37.6 % (35.4-49) 10/18/18 08:00 MCV 89.6 fl (80-96) 10/18/18 08:00 MCH 29.1 pg (25.7-33.7) 10/18/18 08:00 MCHC 32.5 g/dl (32.0-35.9) 10/18/18 08:00 RDW 14.2 % (11.9-15.9) 10/18/18 08:00 Plt Count 143 K/MM3 (134-434) 10/18/18 08:00 MPV 8.8 fl (7.5-11.1) 10/18/18 08:00 Sodium 142 mmol/L (136-145) 10/18/18 08:00 Potassium 4.0 mmol/L (3.5-5.1) 10/18/18 08:00 Chloride 107 mmol/L (98-107) 10/18/18 08:00 Carbon Dioxide 29 mmol/L (21-32) 10/18/18 08:00 Anion Gap 6 MMOL/L (8-16) L 10/18/18 08:00 BUN 16.6 mg/dL (7-18) 10/18/18 08:00 Creatinine 1.0 mg/dL (0.55-1.3) 10/18/18 08:00 Est GFR (CKD-EPI)AfAm 97.08 10/18/18 08:00 Est GFR (CKD-EPI)NonAf 83.76 10/18/18 08:00 Random Glucose 84 mg/dL (74-106) 10/18/18 08:00 Calcium 8.7 mg/dL (8.5-10.1) 10/18/18 08:00 Total Bilirubin 0.2 mg/dL (0.2-1) 10/18/18 08:00 AST 16 U/L (15-37) 10/18/18 08:00 ALT 22 U/L (13-61) 10/18/18 08:00 Alkaline Phosphatase 72 U/L (45-117) 10/18/18 08:00 Total Protein 6.0 g/dl (6.4-8.2) L 10/18/18 08:00 Albumin 3.0 g/dl (3.4-5.0) L 10/18/18 08:00 RPR Titer Nonreactive (NONREACTIVE) 10/18/18 08:00 lab noted Assessment: 10/19/18 10:04 alcohol withdrawal sx Plan: continue valium detox protocol
[2018-10-19] MEDS: PANTOPRAZOLE 20 MG TABLET (FP) PO SCH (10:56)
[2018-10-19] MEDS: PRENATAL VITAMINS W/ FOLIC ACID TABLET (FP) PO SCH (10:57)
[2018-10-19] MEDS: QUEtiapine FUMARATE 50 MG TABLET PO SCH (22:11)
[2018-10-19] MEDS: THIAMINE HCL 100 MG TABLET (FP) PO SCH (22:11)
[2018-10-19] MEDS: diazePAM 5 MG TABLET PO PRN (22:13)
[2018-10-20] MEDS ORDERED: diazePAM 5 MG TABLET PO ONE (06:00)
[2018-10-20 09:26] VITALS: BP 94/60; PULSE 81; TEMP 97
[2018-10-20] MEDS: PANTOPRAZOLE 20 MG TABLET (FP) PO SCH (10:33)
[2018-10-20] MEDS: PRENATAL VITAMINS W/ FOLIC ACID TABLET (FP) PO SCH (10:33)
--- NOTE | 2018-10-20 14:41 | DS ---
[facility] Detox Discharge Summary Admission Date: 10/17/18 Discharge Date: 10/20/18 - History Present History: Alcohol Dependence Additional Comments: 58 years old male admitted on 10/17/18 for acute alcohol withdrawal sx management doing well with valium detox regimen no complication through out the detox regimen alert oriented x 3 steady gait denies pain sleep better at night Pertinent Past History: hepatitis c gerd - Physical Exam Results Vital Signs: Vital Signs Temperature 97.0 F L 10/20/18 09:25 Pulse Rate 81 10/20/18 09:25 Respiratory Rate 16 10/20/18 09:25 Blood Pressure 94/60 10/20/18 09:25 O2 Sat by Pulse Oximetry (%) Pertinent Admission Physical Exam Findings: alcohol withdrawal sx Laboratory Last Values WBC 4.1 K/mm3 (4.0-10.0) 10/18/18 08:00 RBC 4.19 M/mm3 (4.00-5.60) 10/18/18 08:00 Hgb 12.2 GM/dL (11.7-16.9) 10/18/18 08:00 Hct 37.6 % (35.4-49) 10/18/18 08:00 MCV 89.6 fl (80-96) 10/18/18 08:00 MCH 29.1 pg (25.7-33.7) 10/18/18 08:00 MCHC 32.5 g/dl (32.0-35.9) 10/18/18 08:00 RDW 14.2 % (11.9-15.9) 10/18/18 08:00 Plt Count 143 K/MM3 (134-434) 10/18/18 08:00 MPV 8.8 fl (7.5-11.1) 10/18/18 08:00 Sodium 142 mmol/L (136-145) 10/18/18 08:00 Potassium 4.0 mmol/L (3.5-5.1) 10/18/18 08:00 Chloride 107 mmol/L (98-107) 10/18/18 08:00 Carbon Dioxide 29 mmol/L (21-32) 10/18/18 08:00 Anion Gap 6 MMOL/L (8-16) L 10/18/18 08:00 BUN 16.6 mg/dL (7-18) 10/18/18 08:00 Creatinine 1.0 mg/dL (0.55-1.3) 10/18/18 08:00 Est GFR (CKD-EPI)AfAm 97.08 10/18/18 08:00 Est GFR (CKD-EPI)NonAf 83.76 10/18/18 08:00 Random Glucose 84 mg/dL (74-106) 10/18/18 08:00 Calcium 8.7 mg/dL (8.5-10.1) 10/18/18 08:00 Total Bilirubin 0.2 mg/dL (0.2-1) 10/18/18 08:00 AST 16 U/L (15-37) 10/18/18 08:00 ALT 22 U/L (13-61) 10/18/18 08:00 Alkaline Phosphatase 72 U/L (45-117) 10/18/18 08:00 Total Protein 6.0 g/dl (6.4-8.2) L 10/18/18 08:00 Albumin 3.0 g/dl (3.4-5.0) L 10/18/18 08:00 RPR Titer Nonreactive (NONREACTIVE) 10/18/18 08:00 lab noted ekg indicates 1st degree av block asymptomatic denies chest pain no shortness of breath S1S2 clear lung bilaterally abdomen soft none tender lab noted S1S2 - Treatment Hospital Course: Detox Protocol Followed, Detoxed Safely, Responded well, Discharged Condition Good, Rehab Referral Accepted Patient has Accepted [facility] Ref[facility] - Medication Discharge Medications: Ambulatory Orders Omeprazole Magnesium [Prilosec Otc] 20 mg PO DAILY #30 tablet. 11/18/17 Quetiapine Fumarate [Seroquel -] 50 mg PO HS #30 tablet 01/01/18 Quetiapine Fumarate [Seroquel -] 50 mg PO HS #30 tablet 10/19/18 - Diagnosis (1) Alcohol dependence with uncomplicated withdrawal Status: Acute (2) GERD (gastroesophageal reflux disease) Status: Chronic Qualifiers: Esophagitis presence: without esophagitis Qualified Code(s): K21.9 - Gastro -esophageal reflux disease without esophagitis (3) Hepatitis C Status: Chronic Qualifiers: Viral hepatitis chronicity: chronic Hepatic coma status: without hepatic coma Qualified Code(s): B18.2 - Chronic viral hepatitis C (4) Substance induced mood disorder Status: Suspected (5) Weight decreased Status: Acute - AMA Did Patient Leave Against Medical Advice: No
== END 2018-10-20 14:13 | disposition other institution (70) | DRG 773 ==
LOC: YASAS 14:05 → Y3N 19:33
PROVIDERS: ADMIT Surgery; ATTEND Surgery
PROC: HZ2ZZZZ Detoxification Services for Substance Abuse Treatment (ICD-10-PCS; principal; 2018-10-17)
DX: F10.230 Alcohol dependence with withdrawal, uncomplicated (principal); F11.90 Opioid use, unspecified, uncomplicated; F19.24 Other psychoactive substance dependence with psychoactive substance-induced mood disorder; K21.9 Gastro-esophageal reflux disease without esophagitis; B18.2 Chronic viral hepatitis C; R63.4 Abnormal weight loss; G47.00 Insomnia, unspecified; Z88.0 Allergy status to penicillin; Z91.013 Allergy to seafood
CPT/HCPCS: 36415; 80053; 85027; 86593

== ENCOUNTER 2018-10-20 14:38 | Inpatient (IN) | payer OTHER ==
[2018-10-20] MEDS ORDERED: MENTHOL/PHENOL 1 EACH UD MM PRN (14:49)
[2018-10-20] MEDS ORDERED: P-EPHED 60MG/TRIPROLIDI 2.5MG TABLET PO PRN (14:49)
[2018-10-20] MEDS ORDERED: hydrOXYzine PAMOATE 25 MG CAPSULE (FP) PO PRN (14:49)
[2018-10-20] MEDS ORDERED: LOPERAMIDE HCL 2 MG CAPSULE PO PRN (14:49)
[2018-10-20] MEDS ORDERED: guaiFENesin 200 MG/10 ML 10 ML UNIT-DOSE CUPS PO PRN (14:49)
[2018-10-20] MEDS ORDERED: MAGNESIUM HYDROX 2400MG/30ML ORAL SUSPENSION 30 ML CUP PO PRN (14:49)
[2018-10-20] MEDS ORDERED: MAG HYDROX/AL HYDROX/SIMETH 30 ML UNIT-DOSE CUP PO PRN (14:49)
[2018-10-20] MEDS ORDERED: MAGNESIUM CITRATE 300 ML BOTTLE PO PRN (14:49)
--- NOTE | 2018-10-20 14:49 | HP ---
[facility] Rehab Assess/Revision - Admission History Admitted to Rehab from: [facility] Date of Admission to Rehab: 10/20/18 - Findings Detox History & Physical reviewed: Yes Concur with findings: Yes Comments/Additional Findings: transferred from detox to rehab admission as per protocol Inpatient Rehab Admission - Rehab Decision to Admit Inpatient rehab admission?: Yes - Initial Determination Are CD services needed?: Yes Free of communicable disease: Yes Not in need of hospitalization: Yes - Rehab Admission Criteria Previous failed treatment: Yes Poor recovery environment: Yes Comorbidities: Yes Lacks judgement: No Patient is meeting Inpatient Rehab admission criteria:: Yes
[2018-10-20] MEDS ORDERED: MELATONIN 5 MG TABLETS PO PRN (22:00)
[2018-10-20] MEDS: QUEtiapine FUMARATE 50 MG TABLET PO SCH (22:08)
[2018-10-20] MEDS: THIAMINE HCL 100 MG TABLET (FP) PO SCH (22:08)
[2018-10-21] MEDS ORDERED: PANTOPRAZOLE 20 MG TABLET (FP) PO ONE (10:00)
[2018-10-21] MEDS: PRENATAL VITAMINS W/ FOLIC ACID TABLET (FP) PO SCH (10:10)
[2018-10-21] MEDS: ACETAMINOPHEN 325 MG TABLET (FP) PO PRN ×2 (10:11→21:15)
[2018-10-21] MEDS: QUEtiapine FUMARATE 50 MG TABLET PO SCH (21:14)
[2018-10-21] MEDS: THIAMINE HCL 100 MG TABLET (FP) PO SCH (21:14)
[2018-10-22] MEDS: PRENATAL VITAMINS W/ FOLIC ACID TABLET (FP) PO SCH (10:51)
[2018-10-22] MEDS: THIAMINE HCL 100 MG TABLET (FP) PO SCH (21:10)
[2018-10-22] MEDS: QUEtiapine FUMARATE 50 MG TABLET PO SCH (21:10)
[2018-10-22] MEDS: ACETAMINOPHEN 325 MG TABLET (FP) PO PRN (21:10)
[2018-10-23] MEDS: PRENATAL VITAMINS W/ FOLIC ACID TABLET (FP) PO SCH (09:17)
[2018-10-23] MEDS: THIAMINE HCL 100 MG TABLET (FP) PO SCH (21:38)
[2018-10-23] MEDS: QUEtiapine FUMARATE 50 MG TABLET PO SCH (21:38)
[2018-10-23] MEDS: ACETAMINOPHEN 325 MG TABLET (FP) PO PRN (21:39)
[2018-10-24] MEDS: PRENATAL VITAMINS W/ FOLIC ACID TABLET (FP) PO SCH (10:43)
[2018-10-24] MEDS: ACETAMINOPHEN 325 MG TABLET (FP) PO PRN (21:06)
[2018-10-24] MEDS: QUEtiapine FUMARATE 50 MG TABLET PO SCH (21:06)
[2018-10-24] MEDS: THIAMINE HCL 100 MG TABLET (FP) PO SCH (21:06)
[2018-10-25 06:28] VITALS: BP 112/74; PULSE 71; TEMP 97.9
[2018-10-25] MEDS: PRENATAL VITAMINS W/ FOLIC ACID TABLET (FP) PO SCH (10:43)
--- NOTE | 2018-10-25 12:25 | PN ---
[facility] Progress Note Note: REHAB DISCHARGE NOTE Patient discharged AMA on 10/25/18 Admission date: 10/20/18 Patient discharged AMA because he has to go to work Admitted for alcohol detox with subsequent admission for rehab Past Medical;l history GERD Hep C Depression Cocaine use Vital Signs Temperature 97.9 F 10/25/18 06:27 Pulse Rate 71 10/25/18 06:27 Respiratory Rate 18 10/25/18 06:27 Blood Pressure 112/74 10/25/18 06:27 O2 Sat by Pulse Oximetry (%) General Appearance: No apparent distress
== END 2018-10-25 12:55 | disposition left against medical advice (07) | DRG 770 ==
LOC: YASAS 14:38 → Y3W 14:39
PROVIDERS: ADMIT Neuromusculoskeletal Medicine & OMM; ATTEND Neuromusculoskeletal Medicine & OMM
PROC: HZ42ZZZ Group Counseling for Substance Abuse Treatment, Cognitive-Behavioral (ICD-10-PCS; principal; 2018-10-20)
DX: F10.20 Alcohol dependence, uncomplicated (principal); F14.20 Cocaine dependence, uncomplicated; K21.9 Gastro-esophageal reflux disease without esophagitis; G47.00 Insomnia, unspecified; B18.2 Chronic viral hepatitis C; Z88.0 Allergy status to penicillin; Z91.013 Allergy to seafood

== ENCOUNTER 2018-11-30 10:31 | Inpatient (IN) | payer OTHER ==
[2018-11-30 13:37] VITALS: BMI 21.2
--- NOTE | 2018-11-30 14:57 | HP ---
CIWA Score Nausea/Vomitin Muscle Tremors: 3 Anxiety: 2 Agitation: 2 Paroxysmal Sweats: No Perspiration Orientation: 0-Oriented Tacttile Disturbances: 1-Very Mild Itch/Numbness Auditory Disturbances: 2-Mild Harshness/Frighten Visual Disturbances: 1-Very Mild Sensitivity Headache: 2-Mild CIWA-Ar Total Score: 15 - Admission Criteria OASAS Guidelines: Admission for Medically Managed Detox: Requires at least one of the followin. CIWA greater than 12 2. Seizures within the past 24 hours 3. Delirium tremens within the past 24 hours 4. Hallucinations within the past 24 hours 5. Acute intervention needed for co occurring medical disorder 6. Acute intervention needed for co occurring psychiatric disorder 7. Severe withdrawal that cannot be handled at a lower level of care (continued vomiting, continued diarrhea, abnormal vital signs) requiring intravenous medication and/or fluids 8. Admission ROS BHS - HPI Chief Complaint: IM TIRED I WANT HELP Allergies/Adverse Reactions: Allergies Allergy/AdvReac Type Severity Reaction Status Date / Time Penicillins Allergy Severe Swelling Verified 11/30/18 13:18 shellfish derived Allergy Severe Swelling Verified 11/30/18 13:18 History of Present Illness: 30 YO BEGAN DRINKING AND USING SUBSTANCES ONLY [place]IJ[place]NA UP UNTIL THEN BEGAN IN - Ebola screening Have you traveled outside of the country in the last 21 days: No (N) Have you had contact with anyone from an Ebola affected area: No Do you have a fever: No - Review of Systems Constitutional: Loss of Appetite, Changes in sleep EENT: reports: No Symptoms Reported Respiratory: reports: No Symptoms reported Cardiac: reports: No Symptoms Reported GI: reports: No Symptoms Reported : reports: No Symptoms Reported Musculoskeletal: reports: No Symptoms Reported Integumentary: reports: No Symptoms Reported Neuro: reports: No Symptoms reported Endocrine: reports: No Symptoms Reported Hematology: reports: No Symptoms Reported Psychiatric: reports: Mood/Affect Appropiate, Orientated x3 Patient History - Patient Medical History Hx Anemia: No Hx Asthma: No Hx Chronic Obstructive Pulmonary Disease (COPD): No Hx Cancer: No Hx Cardiac Disorders: No Hx Congestive Heart Failure: No Hx Hypertension: No Hx Hypercholesterolemia: No Hx Pacemaker: No HX Cerebrovascular Accident: No Hx Seizures: No Hx Dementia: No Hx Diabetes: No Hx Gastrointestinal Disorders: Yes Hx Liver Disease: Yes (hep c + no treatment) Hx Genitourinary Disorders: No Hx Sexually Transmitted Disorders: No Hx Renal Disease (ESRD): No Hx Thyroid Disease: No Hx Human Immunodeficiency Virus (HIV): No Hx Hepatitis C: Yes (Not treatment) Hx Depression: Yes Hx Suicide Attempt: No Hx Bipolar Disorder: No Hx Schizophrenia: No - Patient Surgical History Past Surgical History: No Hx Neurologic Surgery: No Hx Cataract Extraction: No Hx Cardiac Surgery: No Hx Lung Surgery: No Hx Breast Surgery: No Hx Breast Biopsy: No Hx Abdominal Surgery: No Hx Appendectomy: No Hx Cholecystectomy: No Hx Genitourinary Surgery: No Hx Section: No Hx Orthopedic Surgery: No Hx Hysterectomy: No Anesthesia Reaction: No - PPD History Date: 01/02/18 Results: 0 mm - Smoking Cessation Smoking history: Never smoked Have you smoked in the past 12 months: No Hx Chewing Tobacco Use: No - Substances abused Alcohol Substance route: Oral Frequency: Daily Amount used: 1 quart of vodka, 6 packs of beer. Age of first use: 30 Date of last use: 11/29/18 Alprazolam (Xanax) Substance route: Oral Frequency: Daily Amount used: 3-4 bars Age of first use: 30 Date of last use: 11/29/18 Other Other (specify): vicodin Substance route: Oral Frequency: Daily Amount used: 3 pills of 5mg each daily Age of first use: 42 Date of last use: 10/16/18 Cocaine Substance route: Smoking Frequency: Daily Amount used: $100-200 Age of first use: 30 Date of last use: 11/29/18 Admission Physical Exam S - Vital Signs Vital Signs: Vital Signs - 24 hr 11/30/18 13:17 Temperature 98.3 F Pulse Rate 85 Respiratory 16 Rate Blood Pressure 123/86 - Physical General Appearance: Yes: Mild Distress HEENTM: Yes: EOMI, Normal ENT Inspection, Normocephalic Respiratory: Yes: Chest Non-Tender, Lungs Clear, Normal Breath Sounds Neck: Yes: No masses,lesions,Nodules Breast: Yes: Breast Exam Deferred Cardiology: Yes: Regular Rhythm, Regular Rate, S1, S2 Abdominal: Yes: Normal Bowel Sounds, Non Tender Genitourinary: Yes: Within Normal Limits Back: Yes: Within Normal Limits, Normal Inspection Musculoskeletal: Yes: full range of Motion, Gait Steady Extremities: Yes: Normal Capillary Refill, Normal Inspection, Normal Range of Motion, Non-Tender 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: Fully Oriented, Alert, Motor Strength 5/5, Normal Mood/Affect Integumentary: Yes: Within Normal Limits, Normal Color Lymphatic: Yes: Within Normal Limits - Diagnostic (1) Alcohol dependence with uncomplicated withdrawal Current Visit: Yes Status: Acute (2) Drug-induced mood disorder Current Visit: Yes Status: Acute Breathalyzer - Breathalyzer Breathalyzer: 0 Urine Drug Screen - Test Device Lot number: [id number] Expiration date: 08/08/20 - Control Is test valid?: Yes - Results Drug screen NEGATIVE: No Urine drug screen results: VINEET-Cocaine Inpatient Rehab Admission - Rehab Decision to Admit Inpatient rehab admission?: No
[2018-11-30] MEDS ORDERED: METHOCARBAMOL 500 MG TABLET PO PRN (15:02)
[2018-11-30] MEDS ORDERED: MAGNESIUM CITRATE 300 ML BOTTLE PO PRN (15:02)
[2018-11-30] MEDS ORDERED: diazePAM 5 MG TABLET PO PRN (15:02)
[2018-11-30] MEDS ORDERED: ACETAMINOPHEN 325 MG TABLET (FP) PO PRN ×2 (15:02)
[2018-11-30] MEDS ORDERED: IBUPROFEN 400 MG TABLET (FP) PO PRN (15:02)
[2018-11-30] MEDS ORDERED: MAGNESIUM HYDROX 2400MG/30ML ORAL SUSPENSION 30 ML CUP PO PRN (15:02)
[2018-11-30] MEDS ORDERED: MAG HYDROX/AL HYDROX/SIMETH 30 ML UNIT-DOSE CUP PO PRN (15:02)
[2018-11-30] MEDS ORDERED: BISMUTH SUBSALICYLATE 524 MG/30 ML UD PO PRN (15:02)
[2018-11-30] MEDS ORDERED: hydrOXYzine PAMOATE 25 MG CAPSULE (FP) PO PRN (15:02)
[2018-11-30] MEDS ORDERED: MENTHOL/PHENOL 1 EACH UD MM PRN (15:02)
[2018-11-30] MEDS: QUEtiapine FUMARATE 25 MG TABLET (FP) PO PRN (22:15)
[2018-11-30] MEDS: THIAMINE HCL 100 MG TABLET (FP) PO SCH (22:15)
[2018-11-30] MEDS: MELATONIN 5 MG TABLETS PO PRN (22:15)
[2018-11-30] MEDS: diazePAM 5 MG TABLET PO SCH (22:15)
[2018-12-01] MEDS: diazePAM 5 MG TABLET PO SCH ×3 (06:09→22:09)
[2018-12-01 10:39] LABS: HEMATOCRIT 37.4 % (35.4-49); HEMOGLOBIN 12.2 GM/dL (11.7-16.9); MCH 29.3 pg (25.7-33.7); MCHC 32.6 g/dl (32.0-35.9); MEAN CELL VOLUME 89.8 fl (80-96); MEAN PLT VOLUME 8.8 fl (7.5-11.1); PLATELET COUNT 178 K/MM3 (134-434); RBC 4.16 M/mm3 (4.00-5.60); RDW 14.5 % (11.9-15.9)
[2018-12-01 10:49] LABS: BILIRUBIN,TOTAL 0.2 mg/dL (0.2-1); BLOOD UREA NITROGEN 16.5 mg/dL (7-18); CALCIUM 8.6 mg/dL (8.5-10.1); CREATININE 1.1 mg/dL (0.55-1.3); POTASSIUM 3.7 mmol/L (3.5-5.1); TOT PROT 6.1 g/dl (6.4-8.2)
[2018-12-01] MEDS: PRENATAL VITAMINS W/ FOLIC ACID TABLET (FP) PO SCH (10:51)
--- NOTE | 2018-12-01 11:58 | PN ---
[facility] CIWA - CIWA Score Nausea/Vomitin-Mild Nausea/No Vomiting Muscle Tremors: 3 Anxiety: 4-Mod. Anxious/Guarded Agitation: 3 Paroxysmal Sweats: 2 Orientation: 0-Oriented Tacttile Disturbances: 0-None Auditory Disturbances: 0-None Visual Disturbances: 0-None Headache: 0-None Present CIWA-Ar Total Score: 13 S Progress Note (SOAP) Subjective: doing well with valium detox regmen ate breakfast feeling tired prefer to stay in bed resting today Objective: 12/01/18 11:57 Vital Signs Temperature 97.3 F L 12/01/18 09:33 Pulse Rate 87 12/01/18 09:33 Respiratory Rate 18 12/01/18 09:33 Blood Pressure 95/61 12/01/18 09:33 O2 Sat by Pulse Oximetry (%) Laboratory Last Values WBC 4.0 K/mm3 (4.0-10.0) 12/01/18 08:30 RBC 4.16 M/mm3 (4.00-5.60) 12/01/18 08:30 Hgb 12.2 GM/dL (11.7-16.9) 12/01/18 08:30 Hct 37.4 % (35.4-49) 12/01/18 08:30 MCV 89.8 fl (80-96) 12/01/18 08:30 MCH 29.3 pg (25.7-33.7) 12/01/18 08:30 MCHC 32.6 g/dl (32.0-35.9) 12/01/18 08:30 RDW 14.5 % (11.9-15.9) 12/01/18 08:30 Plt Count 178 K/MM3 (134-434) D 12/01/18 08:30 MPV 8.8 fl (7.5-11.1) 12/01/18 08:30 Sodium 139 mmol/L (136-145) 12/01/18 08:30 Potassium 3.7 mmol/L (3.5-5.1) 12/01/18 08:30 Chloride 104 mmol/L (98-107) 12/01/18 08:30 Carbon Dioxide 28 mmol/L (21-32) 12/01/18 08:30 Anion Gap 7 MMOL/L (8-16) L 12/01/18 08:30 BUN 16.5 mg/dL (7-18) 12/01/18 08:30 Creatinine 1.1 mg/dL (0.55-1.3) 12/01/18 08:30 Est GFR (CKD-EPI)AfAm 86.52 12/01/18 08:30 Est GFR (CKD-EPI)NonAf 74.65 12/01/18 08:30 Random Glucose 92 mg/dL (74-106) 12/01/18 08:30 Calcium 8.6 mg/dL (8.5-10.1) 12/01/18 08:30 Total Bilirubin 0.2 mg/dL (0.2-1) 12/01/18 08:30 AST 14 U/L (15-37) L 12/01/18 08:30 ALT 22 U/L (13-61) 12/01/18 08:30 Alkaline Phosphatase 62 U/L (45-117) 12/01/18 08:30 Total Protein 6.1 g/dl (6.4-8.2) L 12/01/18 08:30 Albumin 3.0 g/dl (3.4-5.0) L 12/01/18 08:30 lab noted Assessment: 12/01/18 11:58 alcohol and benzo detox Plan: continue valium detox regimen
[2018-12-01] MEDS: THIAMINE HCL 100 MG TABLET (FP) PO SCH (22:09)
[2018-12-01] MEDS: QUEtiapine FUMARATE 25 MG TABLET (FP) PO PRN (22:11)
[2018-12-02] MEDS: QUEtiapine FUMARATE 25 MG TABLET (FP) PO PRN ×2 (05:37→21:43)
[2018-12-02] MEDS: diazePAM 5 MG TABLET PO SCH ×2 (05:37→18:11)
[2018-12-02] MEDS: PRENATAL VITAMINS W/ FOLIC ACID TABLET (FP) PO SCH (10:07)
--- NOTE | 2018-12-02 10:38 | PN ---
[facility] CIWA - CIWA Score Nausea/Vomitin-Mild Nausea/No Vomiting Muscle Tremors: 2 Anxiety: 2 Agitation: 2 Paroxysmal Sweats: 1-Minimal Palms Moist Orientation: 0-Oriented Tacttile Disturbances: 0-None Auditory Disturbances: 0-None Visual Disturbances: 0-None Headache: 0-None Present CIWA-Ar Total Score: 8 S Progress Note (SOAP) Subjective: doing well with valium detox regimen discuss aftercare with staff prefers mimi campos Objective: 12/02/18 10:46 Vital Signs Temperature 97.2 F L 12/02/18 09:33 Pulse Rate 77 12/02/18 09:33 Respiratory Rate 16 12/02/18 09:33 Blood Pressure 106/71 12/02/18 09:33 O2 Sat by Pulse Oximetry (%) Laboratory Last Values WBC 4.0 K/mm3 (4.0-10.0) 12/01/18 08:30 RBC 4.16 M/mm3 (4.00-5.60) 12/01/18 08:30 Hgb 12.2 GM/dL (11.7-16.9) 12/01/18 08:30 Hct 37.4 % (35.4-49) 12/01/18 08:30 MCV 89.8 fl (80-96) 12/01/18 08:30 MCH 29.3 pg (25.7-33.7) 12/01/18 08:30 MCHC 32.6 g/dl (32.0-35.9) 12/01/18 08:30 RDW 14.5 % (11.9-15.9) 12/01/18 08:30 Plt Count 178 K/MM3 (134-434) D 12/01/18 08:30 MPV 8.8 fl (7.5-11.1) 12/01/18 08:30 Sodium 139 mmol/L (136-145) 12/01/18 08:30 Potassium 3.7 mmol/L (3.5-5.1) 12/01/18 08:30 Chloride 104 mmol/L (98-107) 12/01/18 08:30 Carbon Dioxide 28 mmol/L (21-32) 12/01/18 08:30 Anion Gap 7 MMOL/L (8-16) L 12/01/18 08:30 BUN 16.5 mg/dL (7-18) 12/01/18 08:30 Creatinine 1.1 mg/dL (0.55-1.3) 12/01/18 08:30 Est GFR (CKD-EPI)AfAm 86.52 12/01/18 08:30 Est GFR (CKD-EPI)NonAf 74.65 12/01/18 08:30 Random Glucose 92 mg/dL (74-106) 12/01/18 08:30 Calcium 8.6 mg/dL (8.5-10.1) 12/01/18 08:30 Total Bilirubin 0.2 mg/dL (0.2-1) 12/01/18 08:30 AST 14 U/L (15-37) L 12/01/18 08:30 ALT 22 U/L (13-61) 12/01/18 08:30 Alkaline Phosphatase 62 U/L (45-117) 12/01/18 08:30 Total Protein 6.1 g/dl (6.4-8.2) L 12/01/18 08:30 Albumin 3.0 g/dl (3.4-5.0) L 12/01/18 08:30 RPR Titer Nonreactive (NONREACTIVE) 12/01/18 08:30 lab noted Assessment: 12/02/18 10:46 alcohol and benzo withdrawal sx Plan: continue valium detox regimen
[2018-12-02] MEDS: THIAMINE HCL 100 MG TABLET (FP) PO SCH (21:42)
[2018-12-02] MEDS: MELATONIN 5 MG TABLETS PO PRN (21:43)
[2018-12-03] MEDS ORDERED: diazePAM 5 MG TABLET PO ONE (06:00)
[2018-12-03 09:13] VITALS: BP 121/64; PULSE 73; TEMP 96.9
[2018-12-03] MEDS: PRENATAL VITAMINS W/ FOLIC ACID TABLET (FP) PO SCH (12:26)
--- NOTE | 2018-12-03 13:21 | DS ---
[facility] Detox Discharge Summary Admission Date: 11/30/18 Discharge Date: 12/03/18 - History Present History: Alcohol Dependence, Sedative Dependence Additional Comments: 58 years old male admitted on 11/30/18 for alcohol and benzo withdrawal sx management did well with valium detox regimen no complication through out the detox stay alert oriented x 3 denies dizziness no shortness of breath speech clearly coherently ambulate steady gait skin warm dry extremities full range of motion - Physical Exam Results Vital Signs: Vital Signs Temperature 96.9 F L 12/03/18 09:12 Pulse Rate 73 12/03/18 09:12 Respiratory Rate 18 12/03/18 09:12 Blood Pressure 121/64 12/03/18 09:12 O2 Sat by Pulse Oximetry (%) Pertinent Admission Physical Exam Findings: alcohol and benzo withdrawal sx Laboratory Last Values WBC 4.0 K/mm3 (4.0-10.0) 12/01/18 08:30 RBC 4.16 M/mm3 (4.00-5.60) 12/01/18 08:30 Hgb 12.2 GM/dL (11.7-16.9) 12/01/18 08:30 Hct 37.4 % (35.4-49) 12/01/18 08:30 MCV 89.8 fl (80-96) 12/01/18 08:30 MCH 29.3 pg (25.7-33.7) 12/01/18 08:30 MCHC 32.6 g/dl (32.0-35.9) 12/01/18 08:30 RDW 14.5 % (11.9-15.9) 12/01/18 08:30 Plt Count 178 K/MM3 (134-434) D 12/01/18 08:30 MPV 8.8 fl (7.5-11.1) 12/01/18 08:30 Sodium 139 mmol/L (136-145) 12/01/18 08:30 Potassium 3.7 mmol/L (3.5-5.1) 12/01/18 08:30 Chloride 104 mmol/L (98-107) 12/01/18 08:30 Carbon Dioxide 28 mmol/L (21-32) 12/01/18 08:30 Anion Gap 7 MMOL/L (8-16) L 12/01/18 08:30 BUN 16.5 mg/dL (7-18) 12/01/18 08:30 Creatinine 1.1 mg/dL (0.55-1.3) 12/01/18 08:30 Est GFR (CKD-EPI)AfAm 86.52 12/01/18 08:30 Est GFR (CKD-EPI)NonAf 74.65 12/01/18 08:30 Random Glucose 92 mg/dL (74-106) 12/01/18 08:30 Calcium 8.6 mg/dL (8.5-10.1) 12/01/18 08:30 Total Bilirubin 0.2 mg/dL (0.2-1) 12/01/18 08:30 AST 14 U/L (15-37) L 12/01/18 08:30 ALT 22 U/L (13-61) 12/01/18 08:30 Alkaline Phosphatase 62 U/L (45-117) 12/01/18 08:30 Total Protein 6.1 g/dl (6.4-8.2) L 12/01/18 08:30 Albumin 3.0 g/dl (3.4-5.0) L 12/01/18 08:30 RPR Titer Nonreactive (NONREACTIVE) 12/01/18 08:30 lab noted - Treatment Hospital Course: Detox Protocol Followed, Detoxed Safely, Responded well, Discharged Condition Good, Rehab Referral Accepted Patient [facility] - Medication Discharge Medications: Ambulatory Orders NK [No Known Home Medication] 11/30/18 - Diagnosis (1) Alcohol dependence with uncomplicated withdrawal Status: Acute (2) Weight decreased Status: Acute (3) GERD (gastroesophageal reflux disease) Status: Chronic Qualifiers: Esophagitis presence: without esophagitis Qualified Code(s): K21.9 - Gastro -esophageal reflux disease without esophagitis (4) Hepatitis C Status: Chronic Qualifiers: Viral hepatitis chronicity: chronic Hepatic coma status: without hepatic coma Qualified Code(s): B18.2 - Chronic viral hepatitis C (5) Sedative hypnotic or anxiolytic dependence Status: Acute (6) Substance induced mood disorder Status: Suspected - AMA Did Patient Leave Against Medical Advice: No CIWA Score - CIWA Score Nausea/Vomitin-No Nausea/No Vomiting Muscle Tremors: 1-None Visible, but Maud Anxiety: 1-Mildly Anxious Agitation: 1-Slight > Activity Paroxysmal Sweats: No Perspiration Orientation: 0-Oriented Tacttile Disturbances: 0-None Auditory Disturbances: 0-None Visual Disturbances: 0-None Headache: 0-None Present CIWA-Ar Total Score: 3
== END 2018-12-03 12:32 | disposition other institution (70) | DRG 775 ==
LOC: YASAS 10:31 → Y3N 15:25
PROVIDERS: ADMIT Surgery; ATTEND Surgery
PROC: HZ2ZZZZ Detoxification Services for Substance Abuse Treatment (ICD-10-PCS; principal; 2018-11-30)
DX: F10.230 Alcohol dependence with withdrawal, uncomplicated (principal); F13.230 Sedative, hypnotic or anxiolytic dependence with withdrawal, uncomplicated; F19.24 Other psychoactive substance dependence with psychoactive substance-induced mood disorder; K21.9 Gastro-esophageal reflux disease without esophagitis; B18.2 Chronic viral hepatitis C; R63.4 Abnormal weight loss; Z88.0 Allergy status to penicillin; Z91.013 Allergy to seafood
CPT/HCPCS: 36415; 80053; 85027; 86593

== ENCOUNTER 2018-12-03 12:39 | Inpatient (IN) | payer OTHER ==
--- NOTE | 2018-12-03 13:17 | DS ---
[facility] Detox Discharge Summary Admission Date: 12/03/18 Discharge Date: 12/03/18 - History Present History: Alcohol Dependence, Sedative Dependence Additional Comments: did well with valium detox regimen no complication through out the detox regimen no complication through out the detox stay alert oriented x 3 cardiac S1S2 regular rate rhythm ekg indicated first degree av block respiratory clear lung bilaterally on auscultation abdomen soft no rebound tenderness - Physical Exam Results Vital Signs: Vital Signs Temperature 98.1 F 12/03/18 12:55 Pulse Rate 86 12/03/18 12:55 Respiratory Rate 12/03/18 12:55 Blood Pressure 101/66 12/03/18 12:55 O2 Sat by Pulse Oximetry (%) Pertinent Admission Physical Exam Findings: alcohol and benzo withdrawal sx see - Treatment Hospital Course: Detox Protocol Followed, Detoxed Safely, Responded well, Discharged Condition Good, Rehab Referral Accepted - Medication Discharge Medications: Ambulatory Orders NK [No Known Home Medication] 11/30/18
[2018-12-03] MEDS ORDERED: guaiFENesin 200 MG/10 ML 10 ML UNIT-DOSE CUPS PO PRN (13:25)
[2018-12-03] MEDS ORDERED: MAG HYDROX/AL HYDROX/SIMETH 30 ML UNIT-DOSE CUP PO PRN (13:25)
[2018-12-03] MEDS ORDERED: LOPERAMIDE HCL 2 MG CAPSULE PO PRN (13:25)
[2018-12-03] MEDS ORDERED: NICOTINE POLACRILEX 2 MG GUM BUC PRN (13:25)
[2018-12-03] MEDS ORDERED: MAGNESIUM CITRATE 300 ML BOTTLE PO PRN (13:25)
[2018-12-03] MEDS ORDERED: MAGNESIUM HYDROX 2400MG/30ML ORAL SUSPENSION 30 ML CUP PO PRN (13:25)
--- NOTE | 2018-12-03 13:25 | HP ---
[facility] Rehab Assess/Revision - Admission History Admitted to Rehab from: [facility] Date of Admission to Rehab: 12/03/18 - Vital signs Vital Signs: Vital Signs Period Temp Pulse Resp BP Sys/Wu Pulse Ox Last 24 Hr 98.1 F 86 19 101/66 - Findings Detox History & Physical reviewed: Yes Concur with findings: Yes Comments/Additional Findings: transferred from detox to rehab admission as per protocol Inpatient Rehab Admission - Rehab Decision to Admit Inpatient rehab admission?: Yes - Initial Determination Are CD services needed?: Yes Free of communicable disease: Yes Not in need of hospitalization: Yes - Rehab Admission Criteria Previous failed treatment: Yes Poor recovery environment: Yes Comorbidities: Yes Lacks judgement: Yes Patient is meeting Inpatient Rehab admission criteria:: Yes
[2018-12-03] MEDS ORDERED: NICOTINE 7 MG/24 HOURS TOPICAL PATCH TD PRN (14:00)
[2018-12-03] MEDS: THIAMINE HCL 100 MG TABLET (FP) PO SCH (21:25)
[2018-12-03] MEDS: MELATONIN 5 MG TABLETS PO PRN (21:26)
[2018-12-03] MEDS: ACETAMINOPHEN 325 MG TABLET (FP) PO PRN (21:26)
[2018-12-04] MEDS: ACETAMINOPHEN 325 MG TABLET (FP) PO PRN ×2 (04:41→21:05)
[2018-12-04] MEDS: PRENATAL VITAMINS W/ FOLIC ACID TABLET (FP) PO SCH (10:12)
[2018-12-04] MEDS: QUEtiapine FUMARATE 50 MG TABLET PO SCH (21:05)
[2018-12-04] MEDS: THIAMINE HCL 100 MG TABLET (FP) PO SCH (21:05)
[2018-12-04] MEDS: MELATONIN 5 MG TABLETS PO PRN (21:06)
[2018-12-05] MEDS: PRENATAL VITAMINS W/ FOLIC ACID TABLET (FP) PO SCH (09:49)
--- NOTE | 2018-12-05 12:43 | CONSULT ---
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 Refer to addiction counselor's summary for further information Medical History: Significant for hepatitis C. Psychiatric History: Patient denies history of previous psychiatric psychiatric treatment or suicidal attempt. However, reports taking Seroquel for insomnia Physical/Sexual Abuse/Trauma History: Denies history of emotional, physical or sexual abuse as well as DV relationship. Reports serving 3 years in the [employer] with honorable discharge Additional Comment: Reports history of 3 previous arrests including 3 felony convictions. Denies being on parole/probation currently Mental Status Exam - Mental Status Exam Alert and Oriented to: Time, Place, Person Cognitive Function: Fair Patient Appearance: Well Groomed Mood: Hopeful, Euthymic Patient Behavior: Cooperative Speech Pattern: Clear Voice Loudness: Normal Thought Process: Intact, Goal Oriented Thought Disorder: Not Present Hallucinations: Denies Suicidal Ideation: Denies Homicidal Ideation: Denies Insight/Judgement: Fair Sleep: Poorly Appetite: Good Muscle strength/Tone: Normal Gait/Station: Normal Psychiatric Findings - Problem List ([place] 1, 2,3) (1) Substance-induced sleep disorder Current Visit: Yes Status: Acute (2) Alcohol dependence Current Visit: Yes Status: Acute (3) Opioid dependence Current Visit: Yes Status: Acute (4) Cocaine dependence Current Visit: Yes Status: Acute (5) Sedative hypnotic or anxiolytic dependence Current Visit: Yes Status: Acute (6) GERD (gastroesophageal reflux disease) Current Visit: Yes Status: Chronic (7) Hepatitis C Current Visit: Yes Status: Chronic - Initial Treatment Plan Initial Treatment Plan: 1) Start Seroquel 50 mg po HS. 2) Continue inpatient rehabilitation
[2018-12-05] MEDS: QUEtiapine FUMARATE 50 MG TABLET PO SCH (21:24)
[2018-12-05] MEDS: ACETAMINOPHEN 325 MG TABLET (FP) PO PRN (21:24)
[2018-12-05] MEDS: MELATONIN 5 MG TABLETS PO PRN (21:24)
[2018-12-05] MEDS: THIAMINE HCL 100 MG TABLET (FP) PO SCH (21:24)
[2018-12-06] MEDS: PRENATAL VITAMINS W/ FOLIC ACID TABLET (FP) PO SCH (10:07)
[2018-12-06] MEDS ORDERED: LIDOCAINE 5% TOPICAL PATCH TP SCH (13:15)
[2018-12-06] MEDS: THIAMINE HCL 100 MG TABLET (FP) PO SCH (21:17)
[2018-12-06] MEDS: QUEtiapine FUMARATE 50 MG TABLET PO SCH (21:17)
[2018-12-06] MEDS: IBUPROFEN 400 MG TABLET (FP) PO PRN (21:18)
[2018-12-06] MEDS: MELATONIN 5 MG TABLETS PO PRN (21:19)
[2018-12-06] MEDS ORDERED: LIDOCAINE PATCH REMOVAL MC SCH (22:00)
[2018-12-07] MEDS: PRENATAL VITAMINS W/ FOLIC ACID TABLET (FP) PO SCH (09:56)
[2018-12-07] MEDS: QUEtiapine FUMARATE 50 MG TABLET PO SCH (21:38)
[2018-12-07] MEDS: MELATONIN 5 MG TABLETS PO PRN (21:38)
[2018-12-07] MEDS: ACETAMINOPHEN 325 MG TABLET (FP) PO PRN (21:38)
[2018-12-07] MEDS: THIAMINE HCL 100 MG TABLET (FP) PO SCH (21:39)
[2018-12-08] MEDS: PRENATAL VITAMINS W/ FOLIC ACID TABLET (FP) PO SCH (09:59)
[2018-12-08] MEDS: THIAMINE HCL 100 MG TABLET (FP) PO SCH (21:04)
[2018-12-08] MEDS: ACETAMINOPHEN 325 MG TABLET (FP) PO PRN (21:04)
[2018-12-08] MEDS: MELATONIN 5 MG TABLETS PO PRN (21:04)
[2018-12-08] MEDS: QUEtiapine FUMARATE 50 MG TABLET PO SCH (21:04)
--- NOTE | 2018-12-09 08:03 | PN ---
S Progress Note Note: Patient reports sleeping poorly despite taking Seroquel 50 mg/hs. Hypnotic properties of Belsomra discussed with patient and he agreed to try it
[2018-12-09] MEDS: PRENATAL VITAMINS W/ FOLIC ACID TABLET (FP) PO SCH (10:17)
[2018-12-09] MEDS: THIAMINE HCL 100 MG TABLET (FP) PO SCH (21:31)
[2018-12-09] MEDS: MELATONIN 5 MG TABLETS PO PRN (21:31)
[2018-12-09] MEDS: ACETAMINOPHEN 325 MG TABLET (FP) PO PRN (21:33)
[2018-12-09] MEDS: SUVOREXANT 10 MG TABLET PO PRN (21:33)
[2018-12-10] MEDS: PRENATAL VITAMINS W/ FOLIC ACID TABLET (FP) PO SCH (09:59)
[2018-12-10] MEDS: MELATONIN 5 MG TABLETS PO PRN (21:07)
[2018-12-10] MEDS: THIAMINE HCL 100 MG TABLET (FP) PO SCH (21:07)
[2018-12-10] MEDS: ACETAMINOPHEN 325 MG TABLET (FP) PO PRN (21:08)
[2018-12-10] MEDS: SUVOREXANT 10 MG TABLET PO PRN (21:09)
[2018-12-11] MEDS: PRENATAL VITAMINS W/ FOLIC ACID TABLET (FP) PO SCH (10:14)
[2018-12-11] MEDS: SUVOREXANT 10 MG TABLET PO PRN (21:40)
[2018-12-11] MEDS: THIAMINE HCL 100 MG TABLET (FP) PO SCH (21:41)
[2018-12-11] MEDS: IBUPROFEN 400 MG TABLET (FP) PO PRN (21:41)
[2018-12-11] MEDS: MELATONIN 5 MG TABLETS PO PRN (21:41)
[2018-12-12] MEDS: PRENATAL VITAMINS W/ FOLIC ACID TABLET (FP) PO SCH (10:44)
[2018-12-12] MEDS: PANTOPRAZOLE 40 MG TABLET (FP) PO SCH (12:11)
[2018-12-12] MEDS: MELATONIN 5 MG TABLETS PO PRN (21:06)
[2018-12-12] MEDS: THIAMINE HCL 100 MG TABLET (FP) PO SCH (21:06)
[2018-12-12] MEDS: ACETAMINOPHEN 325 MG TABLET (FP) PO PRN (21:07)
[2018-12-12] MEDS: SUVOREXANT 10 MG TABLET PO PRN (21:08)
[2018-12-13] MEDS: PANTOPRAZOLE 40 MG TABLET (FP) PO SCH (09:57)
[2018-12-13] MEDS: PRENATAL VITAMINS W/ FOLIC ACID TABLET (FP) PO SCH (09:57)
[2018-12-13] MEDS: THIAMINE HCL 100 MG TABLET (FP) PO SCH (21:24)
[2018-12-13] MEDS: ACETAMINOPHEN 325 MG TABLET (FP) PO PRN (21:24)
[2018-12-13] MEDS: SUVOREXANT 10 MG TABLET PO PRN (21:26)
[2018-12-14] MEDS: PANTOPRAZOLE 40 MG TABLET (FP) PO SCH (09:45)
[2018-12-14] MEDS: PRENATAL VITAMINS W/ FOLIC ACID TABLET (FP) PO SCH (09:45)
[2018-12-14] MEDS: P-EPHED 60MG/TRIPROLIDI 2.5MG TABLET PO PRN ×2 (09:46→21:08)
[2018-12-14] MEDS: MENTHOL/PHENOL 1 EACH UD MM PRN (09:47)
[2018-12-14] MEDS: THIAMINE HCL 100 MG TABLET (FP) PO SCH (21:08)
[2018-12-14] MEDS: SUVOREXANT 10 MG TABLET PO PRN (21:09)
[2018-12-14] MEDS: MELATONIN 5 MG TABLETS PO PRN (21:09)
[2018-12-14] MEDS: ACETAMINOPHEN 325 MG TABLET (FP) PO PRN (21:09)
[2018-12-15] MEDS: MENTHOL/PHENOL 1 EACH UD MM PRN ×3 (08:36→22:39)
[2018-12-15] MEDS: PRENATAL VITAMINS W/ FOLIC ACID TABLET (FP) PO SCH (09:58)
[2018-12-15] MEDS: PANTOPRAZOLE 40 MG TABLET (FP) PO SCH (09:58)
[2018-12-15] MEDS: THIAMINE HCL 100 MG TABLET (FP) PO SCH (21:29)
[2018-12-15] MEDS: ACETAMINOPHEN 325 MG TABLET (FP) PO PRN (21:30)
[2018-12-15] MEDS: SUVOREXANT 10 MG TABLET PO PRN (21:32)
[2018-12-15] MEDS: P-EPHED 60MG/TRIPROLIDI 2.5MG TABLET PO PRN (21:33)
[2018-12-15] MEDS ORDERED: SUVOREXANT 10 MG TABLET PO PRN (22:00)
[2018-12-16 07:03] VITALS: BP 125/86; PULSE 72; TEMP 97.7
--- NOTE | 2018-12-16 08:27 | DS ---
[facility] Rehab Discharge Summary - [facility] Rehab Discharge Summary Admission Date: 12/03/18 Discharge Date: 12/16/18 - History Present History: Alcohol dependence, Cocaine dependence, Opioid dependence - Discharge Physical Exam Vital Signs: Vital Signs Temperature 97.7 F 12/16/18 07:01 Pulse Rate 72 12/16/18 07:01 Respiratory Rate 18 12/16/18 07:01 Blood Pressure 125/86 12/16/18 07:01 O2 Sat by Pulse Oximetry (%) Pertinent Admission Physical Exam Findings: Physical Exam: General: no apparent distress HEENTM: normocephalic, PERRLA Neck: supple Lungs: clear Heart: s1 s2 audible ABD: +BS MSK: full weight bearing, full ROM, steady gait Neuro: CN 2-12 intact; no neurological deficits noted, muscle strength 07/13 - Treatment Discharge Condition: Outpatient referral accepted (patient will go to [facility], 12 step meetings, and has [facility]. Medically stable for discharge.) Hospital Course: Patient was adherent to treatment plan and medication regimen. He attended meetings. - Medication Discharge Medications: Ambulatory Orders Quetiapine Fumarate [Seroquel -] 50 mg PO HS 12/04/18 - Medication-Assisted Treatment (MAT) Medication-Assisted Treatment (MAT): No - Discharge Instructions Diet, activity, other medical instructions: Diet: as tolerated Activity: as tolerated Other medical instructions: as tolerated - Diagnosis (1) Alcohol dependence Status: Chronic Qualifiers: Substance use status: uncomplicated Qualified Code(s): F10.20 - Alcohol dependence, uncomplicated (2) Cocaine dependence Status: Chronic Qualifiers: Substance use status: uncomplicated Qualified Code(s): F14.20 - Cocaine dependence, uncomplicated (3) Opioid dependence Status: Chronic Qualifiers: Substance use status: uncomplicated Qualified Code(s): F11.20 - Opioid dependence, uncomplicated - Follow-up Referral Minutes to complete discharge: 20 - AMA Did Patient Leave Against Medical Advice: No
== END 2018-12-16 09:00 | disposition home or self-care (01) | DRG 772 ==
LOC: YASAS 12:39 → Y3W 12:40
PROVIDERS: ADMIT Neuromusculoskeletal Medicine & OMM; ATTEND Neuromusculoskeletal Medicine & OMM
PROC: HZ42ZZZ Group Counseling for Substance Abuse Treatment, Cognitive-Behavioral (ICD-10-PCS; principal; 2018-12-03)
DX: F11.20 Opioid dependence, uncomplicated (principal); F10.20 Alcohol dependence, uncomplicated; F14.20 Cocaine dependence, uncomplicated; F13.20 Sedative, hypnotic or anxiolytic dependence, uncomplicated; F19.282 Other psychoactive substance dependence with psychoactive substance-induced sleep disorder; K21.9 Gastro-esophageal reflux disease without esophagitis; B18.2 Chronic viral hepatitis C; Z88.0 Allergy status to penicillin; Z91.013 Allergy to seafood; Z91.5 Personal history of self-harm